=== PATIENT | male | born 1940 | race Caucasian/White ===

== ENCOUNTER 2016-12-07 15:59 | Inpatient (IN) | payer MEDICARE ==
[2016-12-07 19:41] LABS: Basophils % (A) 0 %; CH 29.9; CHCM 31.8; Eosinophils # (A) 0.5 k/uL (0-0.7); Eosinophils % (A) 7 %; HCT 48.8 % (39.0-53.0); HDW 2.28; HGB 15.6 gm/dL (13.0-17.5); Luc # (Auto) 0.12; Luc % (Auto) 1; Lymphocytes # (A) 1.6 k/uL (1.0-4.8); Lymphocytes % (A) 20 %; MCH 30.2 pg (25.0-35.0); MCHC 32.1 g/dL (31.0-37.0); MCV 94.3 fL (80.0-100.0); Mean Platelet Volume 7.3; Monocytes # (A) 0.5 k/uL (0-1.0); Monocytes % (A) 6 %; Neutrophils # (A) 5.2 k/uL (1.3-7.7); Neutrophils % (A) 65 %; RBC 5.18 m/uL (4.30-5.90); WBC (Perox) 7.84
--- NOTE | 2016-12-07 19:43 | XR ---
EXAMINATION TYPE: XR chest 2V DATE OF EXAM: 12/07/2016 COMPARISON: 02/12/2016 HISTORY: Hypoxia TECHNIQUE: Frontal and lateral views of the chest are obtained. FINDINGS: There is marked obscuration of the pulmonary vasculature bilaterally by a fine reticular pa ttern of increased density throughout the lung parenchyma with areas of coalescence consistent with i nterstitial and alveolar phase pulmonary edema, presumably cardiogenic pulmonary edema given the mode rate prominence of the cardiac silhouette. Mediastinum appears midline. There is no evident pneumothorax or pleural effusion. Bones and soft tis sues are unremarkable. IMPRESSION: MARKED INTERSTITIAL AND ALVEOLAR PHASE PULMONARY EDEMA, PRESUMABLY CARDIOGENIC ETIOLOGY.
[2016-12-07 19:56] LABS: ALT 21 U/L (21-72); AST 26 U/L (17-59); Alkaline Phosphatase 114 U/L (38-126); Anion Gap 6 mmol/L; Blood Urea Nitrogen 16 mg/dL (9-20); Carbon Dioxide 31 mmol/L (22-30); Chloride 102 mmol/L (98-107); Glucose 133 mg/dL (74-99); Non-African American GFR(MDRD) >60 (>60 ml/min/1.73 sqM); Potassium 4.2 mmol/L (3.5-5.1); Sodium 139 mmol/L (137-145); Total Bilirubin 0.6 mg/dL (0.2-1.3); Total Protein 7.1 g/dL (6.3-8.2)
[2016-12-07 20:09] LABS: Glucose,Whole Blood 105 mg/dL (75-99)
[2016-12-07 20:27] LABS: Hemoglobin A1C 5.8 % (4.2-6.1)
[2016-12-07 20:32] LABS: Glucose,Whole Blood 142 mg/dL (75-99)
[2016-12-07] MEDS: IPRATROPIUM-ALBUTEROL 3 ML NEB INHALATION SCH (21:19)
--- NOTE | 2016-12-07 22:24 | US ---
EXAMINATION TYPE: US carotid duplex BILAT DATE OF EXAM: 12/07/2016 COMPARISON: NONE CLINICAL HISTORY: chf. Dizziness EXAM MEASUREMENTS: RIGHT: Peak Systolic Velocity (PSV) cm/sec ----- Right CCA: 54.6 ----- Right ICA: 84.6 ----- Right ECA: 93.1 ICA/CCA ratio: 1.5 RIGHT: End Diastole cm/sec ----- Right CCA: 12.9 ----- Right ICA: 24.1 ----- Right ECA: 7.6 LEFT: Peak Systolic Velocity (PSV) cm/sec ----- Left CCA: 63.3 ----- Left ICA: 85.3 ----- Left ECA: 64.6 ICA/CCA ratio: 1.3 LEFT: End Diastole cm/sec ----- Left CCA: 14.1 ----- Left ICA: 23.2 ----- Left ECA: 8.9 VERTEBRALS (direction of flow): Right Vertebral: Antegrade Left Vertebral: Antegrade IMPRESSION: MODERATE/SEVERE AMOUNT OF PLAQUE VISUALIZED IN THE RIGHT BULB, PROXIMAL ICA. MODERATE AMOUNT OF PLAQU E VISUALIZED IN LEFT BULB. NO ELEVATED VELOCITIES.
[2016-12-07] MEDS: methylPREDNISolone SOD SUCCI 125 MG/2 ML VIAL IV SCH (23:47)
[2016-12-08] MEDS: methylPREDNISolone SOD SUCCI 125 MG/2 ML VIAL IV SCH ×3 (01:07→17:37)
[2016-12-08] MEDS: SOTALOL 80 MG TAB PO SCH ×2 (01:08→12:26)
[2016-12-08] MEDS: METOPROLOL TARTRATE 12.5 MG TAB PO SCH ×2 (01:08→12:25)
[2016-12-08] MEDS: CLOPIDOGREL 75 MG TAB PO SCH (01:08)
[2016-12-08] MEDS: LISINOPRIL 2.5 MG TAB PO SCH (01:08)
[2016-12-08 06:16] LABS: Basophils % (A) 0 %; CH 30.2; CHCM 31.8; Eosinophils % (A) 1 %; HCT 49.7 % (39.0-53.0); HDW 2.28; HGB 15.7 gm/dL (13.0-17.5); Luc # (Auto) 0.04; Luc % (Auto) 1; Lymphocytes # (A) 0.7 k/uL (1.0-4.8); Lymphocytes % (A) 14 %; MCH 30.1 pg (25.0-35.0); MCHC 31.5 g/dL (31.0-37.0); MCV 95.5 fL (80.0-100.0); Mean Platelet Volume 7.7; Monocytes # (A) 0.1 k/uL (0-1.0); Monocytes % (A) 2 %; Neutrophils # (A) 4.2 k/uL (1.3-7.7); Neutrophils % (A) 82 %; RDW 14.7 % (11.5-15.5); WBC 5.1 k/uL (3.8-10.6); WBC (Perox) 4.92
[2016-12-08 06:25] LABS: ALT 25 U/L (21-72); AST 26 U/L (17-59); Alkaline Phosphatase 121 U/L (38-126); Anion Gap 8 mmol/L; Blood Urea Nitrogen 15 mg/dL (9-20); Calcium 9.1 mg/dL (8.4-10.2); Carbon Dioxide 29 mmol/L (22-30); Chloride 103 mmol/L (98-107); Glucose 129 mg/dL (74-99); Non-African American GFR(MDRD) >60 (>60 ml/min/1.73 sqM); Potassium 4.7 mmol/L (3.5-5.1); Sodium 140 mmol/L (137-145); Total Bilirubin 0.5 mg/dL (0.2-1.3); Total Protein 7.1 g/dL (6.3-8.2)
[2016-12-08 06:33] LABS: Glucose,Whole Blood 131 mg/dL (75-99)
[2016-12-08] MEDS: INSULIN LISPRO (humaLOG) 300 UNIT/3 ML VIAL SQ SCH ×4 (06:48→21:19)
[2016-12-08] MEDS: IPRATROPIUM-ALBUTEROL 3 ML NEB INHALATION SCH ×4 (08:57→19:26)
--- NOTE | 2016-12-08 10:26 | P.CRDCN ---
History of Present Illness Consult date: 12/08/16 Requesting physician: Alan Otero Reason for Consult (text): Shortness of breath and palpitations Chief complaint: Shortness of breath and palpitations History of present illness: This is a 76-year-old gentleman with known history of coronary artery disease and prior stent placement. He underwent angioplasty with stent placement of the circumflex in March 2015 at which time he presented with an acute posterior wall myocardial infarction with cardiogenic shock. He also has history of prior LAD stenting and a known TO of the right coronary artery. Ischemic cardio myopathy status post AICD, hypertension, hyperlipidemia, COPD, and prior history of smoking. Patient also has had admissions for AICD discharge for ventricular tachycardia. He presents to the hospital on this occasion with symptoms of exertional shortness of breath and heart racing. He was sent directly over from Dr. Crews office. Blood pressure on arrival here 100/80, heart rate in the 60s, 92% on 2 L of oxygen. Blood pressure this morning 92/50, 90% on room air. 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 WBC normal hemoglobin 15.7 d- dimer 1.7 BUN 15, creatinine 0.6. Troponins negative 2. BNP level 451. At the time of my examination this morning, patient's breathing is stable, unless he exerts himself, that he feels short of breath. Past Medical History Past Medical History: Asthma, Coronary Artery Disease (CAD), Chest Pain / Angina , COPD, Hypertension, Myocardial Infarction (AK), Osteoarthritis (OA), Pneumonia , Prostate Disorder Additional Past Medical History / Comment(s): home 02 2 liters n/c: " PT NOT SURE HOW MANY AK'S HE'S TRULY HAD(FOUND ON PAST MED HX 4-PT STATED HE THINKS HE' S HAD MORE)" ,ARTHRITIS LT KNEE/FOOT, bronchitis, sinus problems, constipations , lt wrist/arm fx, hx falls, djd Last Myocardial Infarction Date:: UNK History of Any Multi-Drug Resistant Organisms: None Reported Past Surgical History: Adenoidectomy, Appendectomy, Heart Catheterization With Stent, Hernia Repair, Orthopedic Surgery, Tonsillectomy Additional Past Surgical History / Comment(s): 04/09/15 heart cath with 2 stents to prox circ, other past surguries include: CARDIAC STENTx5, BOWEL SX FOR TWISTED BOWELas child, LT TESTICAL REMOVED.ARTHROSCOPIC KNEE SX. CYST REMOVED(CHEST) LT MIDDLE FINGER SX DONE D/T INJURY.delvin ingiunal hernia repair Past Anesthesia/Blood Transfusion Reactions: No Reported Reaction Date of Last Stent Placement:: UNK Smoking Status: Former smoker - Past Family History Father Additional Family Medical History / Comment(s): 2001 Mother Family Medical History: Congestive Heart Failure (CHF), Diabetes Mellitus, Myocardial Infarction (AK) Additional Family Medical History / Comment(s): 1984 Medications and Allergies Home Medications Medication Instructions Recorded Confirmed Type Aspirin EC [Ecotrin Low Dose] 81 mg PO DAILY@1200 06/18/15 12/07/16 History Clopidogrel [Plavix] 75 mg PO HS@0400 02/12/16 12/07/16 History Flaxseed-Sultana 3,6,9 Fatty Acid 1 tab PO DAILY@1200 02/12/16 12/07/16 History Glucosam/Anant-Msm1/C/Kvng/Bosw 1 tab PO BID@0400,1200 02/12/16 12/07/16 History [Glucosamine-Chondroitin Tablet] Multivit-Min/FA/Lycopen/Lutein 1 tab PO DAILY@1200 02/12/16 12/07/16 History [Centrum Silver Tablet] Sotalol [Betapace] 40 mg PO BID@0400,1200 02/12/16 12/07/16 History Lisinopril [Zestril] 2.5 mg PO HS@0400 12/07/16 12/07/16 History Loratadine [Alavert] 10 mg PO DAILY@1200 12/07/16 12/07/16 History Metoprolol Tartrate [Lopressor] 12.5 mg PO BID@0400,1200 12/07/16 12/07/16 History Naproxen Sodium [Aleve] 220 mg PO DAILY@1200 12/07/16 12/07/16 History Allergies Allergy/AdvReac Type Severity Reaction Status Date / Time adhesive Allergy Rash/Hives Verified 12/07/16 17:47 Iodinated Contrast- Oral and Allergy Swelling Verified 12/07/16 17:47 IV Dye iodine Allergy Swelling Verified 12/07/16 17:47 Physical Exam Vitals: Vital Signs Pulse Pulse Resp BP Pulse Ox 12/08/16 09:17 64 12/08/16 08:57 64 12/08/16 03:56 68 19 92/53 90 L 12/08/16 00:00 60 19 96/51 90 L 12/07/16 21:32 62 12/07/16 21:22 58 L 96 12/07/16 20:00 64 19 100/82 92 L Intake and Output 12/07/16 12/08/16 12/08/16 22:59 06:59 14:59 Intake Total 437 120 Output Total 200 1500 1550 Balance 237 -1500 -1430 Intake: Oral 437 120 Output: Urine 200 1500 1550 Other: Voiding Method Urinal # Voids 3 0 Weight 122.5 kg 122.5 kg PHYSICAL EXAMINATION: HEENT: Head is atraumatic, normocephalic. Pupils equal, round. Neck is supple. There is no elevated jugular venous pressure. HEART EXAMINATION: Heart S1, S2 normal. No murmur or gallop heard. CHEST EXAMINATION: Lungs reveal decreased air exchange with fine expiratory wheezes. ABDOMEN: Soft, obese, nontender. Bowel sounds are heard. No organomegaly noted. EXTREMITIES: 2+ peripheral pulses with trace evidence of peripheral edema and no calf tenderness noted. NEUROLOGIC patient is awake, alert and oriented -3. . Results 12/08/16 05:39 12/08/16 05:39 Cardiac Enzymes 12/07/16 12/07/16 12/08/16 Range/Units 19:27 19:27 00:59 AST 26 (17-59) U/L Troponin I <0.012 <0.012 (0.000-0.034) ng/mL 12/08/16 Range/Units 05:39 AST 26 (17-59) U/L Troponin I (0.000-0.034) ng/mL CBC 12/07/16 12/08/16 Range/Units 19:27 05:39 WBC 8.0 5.1 (3.8-10.6) k/uL RBC 5.18 5.20 (4.30-5.90) m/uL Hgb 15.6 15.7 (13.0-17.5) gm/dL Hct 48.8 49.7 (39.0-53.0) % Plt Count 197 193 (150-450) k/uL Comprehensive Metabolic Panel 12/07/16 12/08/16 Range/Units 19:27 05:39 Sodium 139 140 (137-145) mmol/L Potassium 4.2 4.7 (3.5-5.1) mmol/L Chloride 102 103 (98-107) mmol/L Carbon Dioxide 31 H 29 (22-30) mmol/L BUN 16 15 (9-20) mg/dL Creatinine 0.71 0.65 L (0.66-1.25) mg/dL Glucose 133 H 129 H (74-99) mg/dL Calcium 9.0 9.1 (8.4-10.2) mg/dL AST 26 26 (17-59) U/L ALT 21 25 (21-72) U/L Alkaline Phosphatase 114 121 (38-126) U/L Total Protein 7.1 7.1 (6.3-8.2) g/dL Albumin 3.6 3.6 (3.5-5.0) g/dL Current Medications Generic Name Dose Route Start Last Admin Trade Name Freq PRN Reason Stop Dose Admin Albuterol/Ipratropium 3 ml 12/07/16 20:00 12/08/16 08:57 Duoneb 0.5 Mg-3 Mg/3 Ml Soln INHALATION 3 ml RT-QID [facility] Administration Aspirin 81 mg 12/08/16 12:00 Aspirin PO DAILY@1200 [facility] Clopidogrel Bisulfate 75 mg 12/08/16 04:00 12/08/16 01:08 Plavix PO 75 mg HS@0400 [facility] Administration Insulin Human Lispro 0 unit 12/08/16 07:30 12/08/16 06:48 Humalog SQ 1 unit ACHS [facility] Administration Protocol Lisinopril 2.5 mg 12/08/16 04:00 12/08/16 01:08 Zestril PO 2.5 mg HS@0400 [facility] Administration Loratadine 10 mg 12/08/16 12:00 Claritin PO DAILY@1200 [facility] Methylprednisolone Sodium Succinate 60 mg 12/07/16 19:00 12/08/16 09:17 Solu-Medrol IV 60 mg Q8HR [facility] Administration Metoprolol Tartrate 12.5 mg 12/08/16 04:00 12/08/16 01:08 Lopressor PO 12.5 mg BID@0400,1200 [facility] Administration Sotalol HCl 40 mg 12/08/16 04:00 12/08/16 01:08 Betapace PO 40 mg BID@0400,1200 [facility] Administration Intake and Output 12/07/16 12/08/16 12/08/16 22:59 06:59 14:59 Intake Total 437 120 Output Total 200 1500 1550 Balance 237 -1500 -1430 Intake: Oral 437 120 Output: Urine 200 1500 1550 Other: Voiding Method Urinal # Voids 3 0 Weight 122.5 kg 122.5 kg 12/08/16 05:39 12/08/16 05:39 EKG Interpretations (text) No EKG performed Assessment and Plan Plan: Assessment and plan #1 symptoms of exertional shortness of breath and heart racing. No evidence of congestive cardiac failure. school lunch monitor shows a normal sinus rhythm with occasional PVCs. D-dimer 1.7. 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 We will also obtain an EKG, request a CTA of the chest to rule out pulmonary embolism. BNP level is normal and there is no evidence of congestive cardiac failure at this time. Check magnesium level. We will continue to monitor for any tachyarrhythmias. We will also have the patient's AICD interrogated. Further recommendations to follow. DNP note has been reviewed, I agree with a documented findings and plan of care. Patient was seen and examined.
[2016-12-08] MEDS ORDERED: RX INFO: IV CONTRAST WAS GIVEN 1 EACH MISC MISCELLANE PRN (10:27)
[2016-12-08] MEDS ORDERED: methylPREDNISolone SOD SUCCI 125 MG/2 ML VIAL IV STA (10:39)
[2016-12-08] MEDS ORDERED: FAMOTIDINE 20 MG/2 ML VIAL IV STA (10:39)
[2016-12-08] MEDS ORDERED: diphenhydrAMINE 50 MG/ML 1 ML VIAL IVP STA (10:39)
--- NOTE | 2016-12-08 10:49 | ECHOF ---
Referral Reason:chf MEASUREMENTS -------- HEIGHT: 188.0 cm WEIGHT: 122.5 kg BP: 92/53 RVIDd: 4.0 cm (< 3.3) IVSd: 1.5 cm (0.6 - 1.1) LVIDd: 6.5 cm (3.9 - 5.3) LVPWd: 1.5 cm (0.6 - 1.1) IVSs: 1.8 cm LVIDs: 4.8 cm LVPWs: 1.7 cm LA Diam: 5.4 cm (2.7 - 3.8) Ao Diam: 3.6 cm (2.0 - 3.7) AV Cusp: 2.5 cm (1.5 - 2.6) MV EXCURSION: 20.694 mm (> 18.000) MV EF SLOPE: 31 mm/s (70 - 150) EPSS: 1.7 cm MV E Abrahan: 0.52 m/s MV DecT: 401 ms MV A Abrahan: 0.65 m/s MV E/A Ratio: 0.81 AV maxP.25 mmHg AV meanP.66 mmHg AR PHT: 700 ms RAP: 5.00 mmHg RVSP: 42.43 mmHg FINDINGS -------- This was a technically difficult study with suboptimal views. The left ventricle is moderately dilated. There is moderate concentric left ventricular hypertrophy. Overall left ventricular systolic function is low-normal with, an EF between 50 - 55 %. The right ventricle is moderately enlarged. The left atrium is markedly dilated. The right atrium was not well visualized. 1.5mg of Definity was utilized for enhancement of images There is mild to moderate aortic valve sclerosis. There is mild aortic regurgitation. There is mild aortic stenosis present. Peak/mean gradient across the Aortic Valve is 12.25mmHg / 6.66mmHg. Mild mitral annular calcification present. Mild mitral regurgitation is present. Mild tricuspid regurgitation present. There is mild pulmonary hypertension. The right ventricular systolic pressure, as measured by Doppler, is 42.43mmHg. Trace/mild (physiologic) pulmonic regurgitation. The aortic root size is normal. IVC Not well visulized. There is no pericardial effusion. CONCLUSIONS -------- 1. This was a technically difficult study with suboptimal views. 2. There is mild aortic stenosis present. 3. Peak/mean gradient across the Aortic Valve is 12.25mmHg / 6.66mmHg. 4. Mild mitral annular calcification present. 5. Mild mitral regurgitation is present. 6. Mild tricuspid regurgitation present. 7. There is mild pulmonary hypertension. 8. The right ventricular systolic pressure, as measured by Doppler, is 42.43mmHg. 9. Trace/mild (physiologic) pulmonic regurgitation. 10. The aortic root size is normal. 11. IVC Not well visulized. 12. The left ventricle is moderately dilated. 13. There is no pericardial effusion. 14. There is moderate concentric left ventricular hypertrophy. 15. The right ventricle is moderately enlarged. 16. The left atrium is markedly dilated. 17. The right atrium was not well visualized. 18. 1.5mg of Definity was utilized for enhancement of images 19. There is mild to moderate aortic valve sclerosis. 20. There is mild aortic regurgitation. RANGE MANAGEMENT SPECIALIST: Anitra Hanson RDCS
[2016-12-08 12:23] LABS: Glucose,Whole Blood 153 mg/dL (75-99)
[2016-12-08] MEDS: ASPIRIN 81 MG CHEW PO SCH (12:25)
[2016-12-08] MEDS: LORATADINE 10 MG TAB PO SCH (12:25)
[2016-12-08 12:27] LABS: Appearance,Urine Clear (Clear); Bilirubin,Urine Negative (Negative); Glucose,Urine (UA) Negative (Negative); Ketones,Urine Negative (Negative); Leukocyte Esterase,Urine Negative (Negative); Mucus,Urine Occasional /hpf; Nitrite,Urine Negative (Negative); Particle Count 3135; Protein,Urine 1+ (Negative); RBC,Urine 25 /hpf (0-5); Specific Gravity,Urine 1.021 (1.001-1.035); UA Billing (MACRO vs. MICRO) MICRO; Urobilinogen,Urine <2.0 mg/dL (<2.0); WBC,Urine 4 /hpf (0-5)
--- NOTE | 2016-12-08 13:26 | CT ---
EXAMINATION TYPE: CT angio chest DATE OF EXAM: 12/08/2016 COMPARISON: NONE HISTORY: Trouble breathing CT DLP: 726.8 mGycm CONTRAST: CT chest with contrast and 3D reconstruction with MIP imaging is performed with IV Contrast, patient injected with 100 mL of Omnipaque 350. Contrast-enhanced CT of the chest was performed through the course of the pulmonary arteries with massimo g and mediastinal window settings submitted. 3D reconstruction with MIP imaging was also performed. PULMONARY ARTERIES: The pulmonary arteries and their major tributaries are patent. I do not see jaylan dence for sizable filling defect to suggest pulmonary embolic process. LUNGS: Lung volumes are diminished. There is evidence of honeycombing compatible with idiopathic pulm onary fibrosis. MEDIASTINUM: Thoracic aorta is of normal caliber . The heart is enlarged. There is a pulmonary arterial prominence compatible pulmonary arterial hypertension. Coronary artery calcifica tions are noted. No evidence for mediastinal mass. No mediastinal lymph nodes greater than 1cm. HILAR STRUCTURES: No evidence for mass. No hilar lymph nodes greater than 1 cm. UPPER ABDOMEN: Stable adrenal nodularity. IMPRESSION: 1. No evidence for Pulmonary embolism at this time. 2. Idiopathic pulmonary fibrosis
[2016-12-08 16:47] LABS: Glucose,Whole Blood 146 mg/dL (75-99)
[2016-12-08] MEDS: BUDESONIDE 0.5 MG/2 ML NEBU INHALATION SCH (19:26)
[2016-12-08 20:03] LABS: Hemoglobin A1C 5.8 % (4.2-6.1)
[2016-12-08 20:24] LABS: Glucose,Whole Blood 161 mg/dL (75-99)
[2016-12-08] MEDS: HEPARIN SODIUM,PORCINE 5,000 UNIT/ML 1 ML VIAL SQ SCH (21:15)
[2016-12-09] MEDS: methylPREDNISolone SOD SUCCI 125 MG/2 ML VIAL IV SCH ×2 (01:11→08:11)
[2016-12-09] MEDS: CLOPIDOGREL 75 MG TAB PO SCH ×2 (01:16→23:35)
[2016-12-09] MEDS: METOPROLOL TARTRATE 12.5 MG TAB PO SCH ×3 (01:17→23:35)
[2016-12-09] MEDS: LISINOPRIL 2.5 MG TAB PO SCH ×2 (01:18→23:36)
[2016-12-09] MEDS: SOTALOL 80 MG TAB PO SCH ×3 (01:19→23:36)
[2016-12-09] MEDS: BUDESONIDE 0.5 MG/2 ML NEBU INHALATION SCH ×2 (07:12→21:14)
[2016-12-09] MEDS: IPRATROPIUM-ALBUTEROL 3 ML NEB INHALATION SCH ×4 (07:12→21:14)
[2016-12-09 07:18] LABS: Glucose,Whole Blood 147 mg/dL (75-99)
[2016-12-09] MEDS: INSULIN LISPRO (humaLOG) 300 UNIT/3 ML VIAL SQ SCH ×4 (08:11→21:48)
[2016-12-09] MEDS: HEPARIN SODIUM,PORCINE 5,000 UNIT/ML 1 ML VIAL SQ SCH ×2 (08:11→21:49)
[2016-12-09] MEDS: LORATADINE 10 MG TAB PO SCH (08:12)
[2016-12-09] MEDS: ASPIRIN 81 MG CHEW PO SCH (08:12)
--- NOTE | 2016-12-09 08:53 | CONS ---
Huey mahmood is a 76-year-old male who presented to his primary care physicians office with increasing shortness of breath for 2 to 3 months duration. He was previously seen by me and used to follow in my office as well. He was subsequently admitted for further evaluation. The patient stopped all his nebulized medications 6 months to a year ago. PAST MEDICAL HISTORY: Coronary artery disease, status post previous stent placement, history of severe asthma, history of chronic obstructive pulmonary disease, history of interstitial changes on his x-ray which is thought to be chronic from lung fibrosis, history of allergies with several air allergens including cat which he is exposed to at this time. History of uncontrolled asthma and chronic obstructive pulmonary disease requiring systemic steroids. History of diabetes mellitus. FAMILY HISTORY: Positive for CHF in his mother, diabetes mellitus in his mother. Asthma in his son. SOCIAL HISTORY: Patient used to work for [employer] with exposure of several chemicals. He is ALLERGIC TO ADHESIVES, BENZODIAZEPINES, CATS AND AIR ALLERGENS. MEDICATIONS PRIOR TO ADMISSION: Sotalol, Aleve, Centrum Silver, Lopressor, Alavert, Zestril, glucosamine, fatty acid, Plavix, and Ecotrin. REVIEW OF SYSTEMS: Positive for obesity. On physical examination blood pressure is 123/68, respiratory rate 18, pulse rate of 68, O2 sat on 2-L via nasal cannula is 90%. HEENT reveals pupils that are equal. No jugular venous distention. Chest reveals decreased breath sounds, prolonged expiration, scattered crackles. There is expiratory wheeze. Cardiovascular system reveals an S1, S2. No S3. Abdomen is soft. There is 1+ to 2+ pedal edema. LABS: Reveal white count is 5.1, hemoglobin 15.7, sodium 140, potassium 4.7, chloride 103, bicarb 29, BUN 15, creatinine 0.65. CTA of the chest was negative for blood clots, but does show presence of interstitial changes consistent with pulmonary fibrosis. There are some soft infiltrates as well. IMPRESSION: 1. Acute on chronic respiratory failure. The patients O2 sats normally run in the 80s on supplemental oxygen, but has been as low as in the 50s at home. 2. Interstitial pneumonia. 3. Severe asthma with chronic obstructive pulmonary disease. 4. Baseline lung fibrosis. 5. Obesity. 6. Obstructive sleep apnea is likely. 7. Obesity. At this point in time would continue IV steroids, bronchodilators, aerosolized steroids. Keep him on GI and DVT prophylaxis. Infectious etiology is less likely at this time and agree with holding antibiotics. Depending on how he does we shall make further changes to his care. He was counseled regarding his condition and this approach. MARIA ESTHER
--- NOTE | 2016-12-09 11:21 | HP ---
CHIEF COMPLAINT: 76-year-old white male admitted with shortness of breath and palpitations. 76-year-old white male with coronary artery disease, stent placement. Underwent angioplasty of the stent in circumflex in March of 2015. He had acute posterior wall myocardial infarction and cardiogenic shock. He also has history of prior LAD stenting and possible stenting to the right coronary. Ischemic cardiomyopathy status post AICD, hypertension, dyslipidemia, COPD and smoking history. He has exertional shortness of breath, heart racing. His oxygen was 92% on 2 liters, blood pressure 92/50's. Troponins are negative. BNP 451. CT of the chest shows pulmonary fibrosis. PAST MEDICAL HISTORY: Asthma, coronary artery disease, COPD, hypertension, myocardial infarction, osteoarthritis, pneumonia, prostate disorder, arthritis of the left knee and foot, ( ), chronic constipation. SURGICAL HISTORY: Adenoidectomy, appendectomy, heart catheterization with stent , hernia repair, orthopedic surgery, tonsillectomy, cardiac stent x5, ( ), testicle removed, arthroscopic knee surgery, cyst removed right middle finger, bilateral inguinal hernia repair. PAST MEDICAL HISTORY: Father in 2001. Mother congestive heart failure, diabetes mellitus, myocardial infarction. MEDICATIONS: 1. Aspirin. 2. Plavix. 3. Glucosamine. 4. Flaxseed oil. 5. Multivitamin. 6. Sotalol. 7. Betapace 40 mg b.i.d. 8. Lisinopril 2.5 daily. 9. Elavil 10 mg daily. 10. Lopressor 12.5 b.i.d. 11. Naprosyn 220 b.i.d. ALLERGIES: ADHESIVES, IODINE. PHYSICAL EXAMINATION: Blood pressure 90's-100's systolically over 50's-70's. O2 is 92% on room air. Pulse 60-64. CARDIOVASCULAR: S1/S2. LUNGS: Show scattered wheezes x4, rales x4. HEMATOLOGY: Negative for Homans sign. PSYCH: Fair mood and affect. NEUROLOGIC: Alert and oriented x3. ASSESSMENT: 1. Shortness of breath, heart racing. 2. History of coronary artery disease with prior stents. 3. Ischemic cardiomyopathy status post AICD. 4. Ventricular tachycardia. 5. Hypertension. 6. Dyslipidemia. 7. Chronic obstructive pulmonary disease. 8. Sleep apnea. 9. Pulmonary fibrosis. IV steroids will be given. Continue with current treatment. MTDD
[2016-12-09 11:53] LABS: Glucose,Whole Blood 138 mg/dL (75-99)
--- NOTE | 2016-12-09 12:04 | CDI ---
In responding to this query, please exercise your independent professional judgment. The [facility] Coding Staff and Clinical Documentation Specialists appreciate your assistance in clarifying documentation, maintaining compliance with coding guidelines, accurately documenting patients condition and capturing severity of illness. The fact that a question is asked does not imply that any particular answer is desired or expected. Communication forms are a method of clarifying documentation and are not made part of the Legal Health Record. Thank you in advance for your clarification. Last Revision, March 2015 Ranjit [place] [address] [place] [address] Documentation Clarification Form Date: 12/09/2016 11:31:00 AM From: Cici Adams Admit Date: 12/07/2016 4:09:00 PM Patient Name: Huey Brasher Visit Number: [id number] Discharge Date: Dr. Alan Otero Documentation of chronic obstructive pulmonary disease located in the H&P and consults. History/Risk Factors: Hypertension, [place], Significant history of respiratory disorders/disease: COPD, Asthma Present or past smoker/PPD: Former smoker Clinical Indicators: Complains of shortness of breath and palpitations. CXR: chronic form lung fibrosis Vital Signs/Pulse Oximetry: 110/82 64 19 92 % 2/L NC Lung and Respiratory Assessment: Chest reveals decreased breath sounds, prolonged expiration, scattered crackles, expiratory wheeze. Treatment: Nebulizers: Albuterol Duoneb's, Pulmicort Inhalation, Steroids: Solu-Medrol IV (taper) Claritin PO O2 2/L NC In your professional opinion, can you please clarify if the above findings and treatment signify any of the following? Acute Exacerbation of Chronic Obstructive Pulmonary Disease (COPD) Acute on Chronic Obstructive Asthma Acute on chronic bronchitis Chronic obstructive pulmonary disease with acute lower respiratory infection Emphysema Unable to determine Other condition, please specify Please document in your progress notes and discharge summary in order to capture severity of illness and risk of mortality. Include clinical findings that support your diagnosis. FYI: Press F11 to launch patient chart. MTDDarius
--- NOTE | 2016-12-09 13:01 | CDI ---
In responding to this query, please exercise your independent professional judgment. The [facility] Coding Staff and Clinical Documentation Specialists appreciate your assistance in clarifying documentation, maintaining compliance with coding guidelines, accurately documenting patients condition and capturing severity of illness. The fact that a question is asked does not imply that any particular answer is desired or expected. Communication forms are a method of clarifying documentation and are not made part of the Legal Health Record. Thank you in advance for your clarification. Last Revision, July 2015 Ranjit [place] [address] [place] [address] Documentation Clarification Form Date: 12/09/2016 12:12:00 PM From: Cici Adams Admit Date: 12/07/2016 4:09:00 PM Patient Name: Huey Brasher Visit Number: [id number] Discharge Date: Dr. Jasper Fong Asthma is documented in the your consult on 12/08/16 Patient history/risk factors: Asthma, COPD, [place] Hypertension Clinical Indicators: Presented with increasing shortness of breath. Chest x-ray: Marked interstitial and alveolar phase pulmonary edema, presumably cardiogenic etiology. Vital Signs: 100/82 64 19 92 % 2/LNC Other Clinical Indicators: Chest reveals decreased breath sounds, prolonged expiration, scattered crackles, expiratory wheeze. Treatment: Albuterol Duoneb's, Pulmicort Inhalation Solu-Medrol IV (taper) Claritin PO O2 2/L NC (titrate) In your professional opinion, can you please further specify the following, related to the diagnosis of severe asthma if known? With Acute Exacerbation Status asthmaticus Acute lower respiratory infection COPD (specify with or without exacerbation) Chronic obstructive bronchitis Other, please specify Unable to determine Severity Mild intermittent Mild persistent Moderate persistent Severe persistent Other, please specify Unable to determine Form or Type Cough variant Childhood Exercise induced bronchospasm Extrinsic allergic Idiosyncratic Intrinsic nonallergic Late-onset Mixed Other, please specify Unable to determine Please document in your progress notes in order to capture severity of illness and risk of mortality. Include clinical findings that support your diagnosis. FYI: Press F11 to launch patient chart. MARIA ESTHER
--- NOTE | 2016-12-09 13:09 | P.PN ---
Subjective This is a 76-year-old gentleman with known history of coronary artery disease and prior stent placement. He underwent angioplasty with stent placement of the circumflex in March 2015 at which time he presented with an acute posterior wall myocardial infarction with cardiogenic shock. He also has history of prior LAD stenting with a known MEAT MOLDER of the right coronary artery, ischemic cardio myopathy status post AICD, hypertension, hyperlipidemia, COPD, and prior history of smoking. Patient also has had admissions for AICD discharge for ventricular tachycardia. He presents to the hospital on this occasion with symptoms of exertional shortness of breath and heart racing. Upon exam today he is seen resting in bed conversing with his roommate. He c/o shortness of breath on exertion and does become short of breath while conversing. He denies chest pain, palpitations, nausea, vomiting or dizziness. Objective - Vital Signs Vital signs: Vital Signs Temp 97.6 F 12/09/16 07:00 Pulse 64 12/09/16 11:22 Resp 18 12/09/16 08:00 BP 103/56 12/09/16 07:00 Pulse Ox 92 L 12/09/16 07:15 Intake & Output 12/08/16 12/09/16 12/09/16 18:59 06:59 18:59 Intake Total 120 Output Total 1550 Balance -1430 Intake: Oral 120 Output: Urine 1550 Other: Voiding Method Urinal Toilet Urinal # Voids 3 2 - Exam GENERAL: Well-appearing, obese, well-nourished and in no acute distress. NECK: Supple without JVD or thyromegaly. LUNGS: Breath sounds clear to auscultation bilaterally with diminished air exchange. No wheezes, rales or rhonchi. HEART: Regular rate and rhythm without murmurs, rubs or gallops. S1 and S2 heard. ABDOMEN: Soft, nontender, normoactive bowel sounds. EXTREMITIES: Normal range of motion, no edema. Clubbing and cyanosis of all 10 digits. Peripheral pulses intact and strong. - Labs CBC & Chem 7: 12/08/16 05:39 12/08/16 05:39 Labs: Abnormal Lab Results - Last 24 Hours (Table) 12/08/16 12/08/16 12/08/16 Range/Units 14:02 16:46 20:18 POC Glucose (mg/dL) 146 H 161 H (75-99) mg/dL LDL Cholesterol, Calc 140 H (0-99) mg/dL HDL Cholesterol 36 L (40-60) mg/dL 12/09/16 12/09/16 Range/Units 06:57 11:51 POC Glucose (mg/dL) 147 H 138 H (75-99) mg/dL LDL Cholesterol, Calc (0-99) mg/dL HDL Cholesterol (40-60) mg/dL Microbiology - Last 24 Hours (Table) 12/07/16 12:17 Urine Culture - Preliminary Urine,Clean Catch Assessment and Plan Plan: Assessment 1. Known history of coronary artery disease with prior circumflex stent, LAD stents, and MEAT MOLDER of the RCA. 2. Ischemic cardiomyopathy status post AICD implant. 3. History of ventricular tachycardia with AICD discharges. 4. Hypertension. 5. Hyperlipidemia. 6. COPD, acute exacerbation on chronic long-term home oxygen use. 7. Sleep apnea. 8. Prior history of smoking. Plan Echocardiogram reveals mild pulmonary hypertension with right ventricular systolic pressure 42.43 mmHg, left ventricular function low normal with EF 50-55 % and moderate left ventricular hypertrophy. CTA of chest reveals no evidence for pulmonary embolism. Idiopathic pulmonary fibrosis. EKG reveals normal sinus mechanism. Magnesium level 1.8. AICD interrogation reveals no significant events of firing with 80% battery life remaining. There is no evidence of congestive heart failure or pulmonary embolism at this time. This pt appears to be having an acute exacerbation of COPD and should be medically managed as such. We thank you for allowing us to care for this pt during his hospitalization. Nurse Practitioner note has been reviewed, I agree with a documented findings and plan of care. Patient was seen and examined.
[2016-12-09 17:04] LABS: Glucose,Whole Blood 150 mg/dL (75-99)
[2016-12-09] MEDS: methylPREDNISolone SOD SUCCI 40 MG/ML 1 ML VIAL IV SCH ×2 (17:28→23:28)
[2016-12-09 22:04] LABS: Glucose,Whole Blood 141 mg/dL (75-99)
[2016-12-10 07:07] LABS: Glucose,Whole Blood 111 mg/dL (75-99)
[2016-12-10] MEDS: BUDESONIDE 0.5 MG/2 ML NEBU INHALATION SCH ×2 (07:22→19:08)
[2016-12-10] MEDS: IPRATROPIUM-ALBUTEROL 3 ML NEB INHALATION SCH ×4 (07:22→19:08)
--- NOTE | 2016-12-10 07:41 | PN ---
DATE OF SERVICE : 12/09/2016 The patient is a 76-year-old male who is seen lying in bed, eating lunch. He is awake and alert. Verbalizes not feeling a whole lot better than when he came in. Continues to have a cough when he takes a deep breath. No longer feels like his heart is pounding out of his chest and his headache is resolved. The patient is hemodynamically stable, afebrile, in no acute distress. ON PHYSICAL EXAM: VITAL SIGNS: Temp is 97.6, heart rate is 64, respiratory rate is 18, blood pressure is 103/56, O2 sats 92% on 2 L O2 via nasal cannula. HEENT: Head is normocephalic, atraumatic. Neck is supple. Trachea is midline. Lung sounds are decreased. No rales or wheezes. HEART: S1 and S2 are heard, not tachycardiac. ABDOMEN: Soft. Bowel sounds are heard. EXTREMITIES: With trace edema bilaterally. NEUROLOGIC: Patient is awake, alert, oriented. LABS: No new labs to review. IMAGING: No new imaging to review. IMPRESSION: 1. Acute on chronic respiratory failure. The patient's O2 sats normally run in the 80s on supplemental oxygen. 2. Interstitial pneumonia. 3. Severe asthma with chronic obstructive pulmonary disease. 4. Baseline lung fibrosis. 5. Obesity. 6. Obstructive sleep apnea is suspected . PLAN: Continue current medications, which have been reviewed. Continue bronchodilators, aerosol steroids and IV steroids. Continue GI and DVT prophylaxis. Continue to increase activity as tolerated. Patient was informed about the importance of having a sleep study to evaluate for obstructive sleep apnea and being treated for it if so. However, the patient stated that he tried to have one done here at this facility and was told that he had to sleep at night and patient has never slept at night so he refused to get it done. Again, the patient is highly recommended to have a sleep study as an outpatient. Will follow closely with you making further changes as necessary. MARIA ESTHER
[2016-12-10] MEDS: INSULIN LISPRO (humaLOG) 300 UNIT/3 ML VIAL SQ SCH ×4 (09:07→22:14)
[2016-12-10] MEDS: HEPARIN SODIUM,PORCINE 5,000 UNIT/ML 1 ML VIAL SQ SCH ×2 (09:08→22:17)
[2016-12-10] MEDS: methylPREDNISolone SOD SUCCI 40 MG/ML 1 ML VIAL IV SCH ×2 (09:08→22:17)
[2016-12-10] MEDS: LORATADINE 10 MG TAB PO SCH (11:16)
[2016-12-10] MEDS: METOPROLOL TARTRATE 12.5 MG TAB PO SCH (11:16)
[2016-12-10] MEDS: ASPIRIN 81 MG CHEW PO SCH (11:16)
[2016-12-10] MEDS: SOTALOL 80 MG TAB PO SCH (11:17)
[2016-12-10 11:48] LABS: Glucose,Whole Blood 135 mg/dL (75-99)
[2016-12-10] MEDS: PANTOPRAZOLE 40 MG TABLET PO SCH (12:45)
--- NOTE | 2016-12-10 12:57 | PN ---
SUBJECTIVE: This is a white male with acute on chronic hypoxemic respiratory failure, ( ) heart failure, hypoxemia of the patient down to 56% while walking down the stairs. Lungs show scattered rhonchi and wheeze. O2 sat on 2 L 92% and 56% without oxygen with ambulation. ASSESSMENT: 1. Chronic obstructive pulmonary disease exacerbation. 2. Right-sided heart failure. 3. Hypertension. Continue with steroid taper. Oral Claritin, overall antibiotics, DuoNeb, Pulmicort. Asthma, acute COPD, chronic obstructive bronchitis, right-sided heart failure. Continue with current treatments. MTDD
--- NOTE | 2016-12-10 13:07 | PN ---
DATE OF SERVICE: 12/10/2016 The patient is a 76-year-old male who was seeing lying in bed, is awake and alert. Appears to be feeling a little better today. States that he feels about the same. The patient is hemodynamically stable, afebrile, in no acute distress. ON PHYSICAL EXAM: VITAL SIGNS; Temp is 97.9, heart rate 72, respiratory rate 18, blood pressure 106/59, O2 sats 96% on 2 L O2 via nasal cannula. HEENT: Head is normocephalic, atraumatic. Neck is supple. Trachea is midline. Lungs with diffuse scattered Velcro type rales. HEART: S1 and S2 are heard, not tachycardiac. ABDOMEN: Soft. Bowel sounds are head. EXTREMITIES: With no edema. NEUROLOGIC: Patient is awake and alert. No new labs to review. No new imaging to review. IMPRESSION: 1. Acute on chronic respiratory failure. 2. Interstitial pneumonia. 3. Severe asthma with chronic obstructive pulmonary disease. 4. Baseline lung fibrosis. 5. Obesity. 6. Obstructive sleep apnea suspected. PLAN: Continue current medications, which have been reviewed. Will decrease IV Solu-Medrol to 40 q.12. Continue bronchodilators and aerosol steroids. Continue GI and DVT prophylaxis. Continue to increase activity as tolerated. Patient would benefit from a sleep study as an outpatient. Will follow closely with you making further changes as necessary. JIAND
[2016-12-10 17:11] LABS: Glucose,Whole Blood 161 mg/dL (75-99)
[2016-12-10 21:24] LABS: Glucose,Whole Blood 118 mg/dL (75-99)
[2016-12-10 23:54] LABS: Appearance,Urine Clear (Clear); Bilirubin,Urine Negative (Negative); Glucose,Urine (UA) Negative (Negative); Ketones,Urine Negative (Negative); Leukocyte Esterase,Urine Negative (Negative); Mucus,Urine Rare /hpf; Nitrite,Urine Negative (Negative); PH, Urine 5.5 (5.0-8.0); Particle Count 1958; Protein,Urine Trace (Negative); RBC,Urine >182 /hpf (0-5); Specific Gravity,Urine 1.023 (1.001-1.035); UA Billing (MACRO vs. MICRO) MICRO; Urobilinogen,Urine <2.0 mg/dL (<2.0); WBC,Urine 6 /hpf (0-5)
[2016-12-11] MEDS: CLOPIDOGREL 75 MG TAB PO SCH (03:10)
[2016-12-11] MEDS: LISINOPRIL 2.5 MG TAB PO SCH (03:11)
[2016-12-11] MEDS: METOPROLOL TARTRATE 12.5 MG TAB PO SCH ×3 (03:11→12:19)
[2016-12-11] MEDS: SOTALOL 80 MG TAB PO SCH ×2 (03:11→11:58)
[2016-12-11] MEDS: IPRATROPIUM-ALBUTEROL 3 ML NEB INHALATION SCH ×4 (06:55→20:10)
[2016-12-11] MEDS: BUDESONIDE 0.5 MG/2 ML NEBU INHALATION SCH ×2 (06:55→20:10)
[2016-12-11 07:35] LABS: Basophils % (A) 0 %; CH 30.2; CHCM 31.2; Eosinophils % (A) 0 %; HCT 47.6 % (39.0-53.0); HDW 2.28; HGB 14.8 gm/dL (13.0-17.5); Hypochromasia Slight; Luc # (Auto) 0.13; Luc % (Auto) 1; Lymphocytes # (A) 0.8 k/uL (1.0-4.8); Lymphocytes % (A) 8 %; MCH 30.2 pg (25.0-35.0); MCHC 31.1 g/dL (31.0-37.0); MCV 97.2 fL (80.0-100.0); Monocytes # (A) 0.7 k/uL (0-1.0); Monocytes % (A) 6 %; Neutrophils % (A) 85 %; RDW 15.1 % (11.5-15.5); WBC 10.7 k/uL (3.8-10.6); WBC (Perox) 10.26
[2016-12-11 07:53] LABS: ALT 38 U/L (21-72); AST 35 U/L (17-59); Alkaline Phosphatase 93 U/L (38-126); Anion Gap 8 mmol/L; Blood Urea Nitrogen 24 mg/dL (9-20); Calcium 8.6 mg/dL (8.4-10.2); Carbon Dioxide 31 mmol/L (22-30); Chloride 101 mmol/L (98-107); Glucose 124 mg/dL (74-99); Non-African American GFR(MDRD) >60 (>60 ml/min/1.73 sqM); Potassium 4.9 mmol/L (3.5-5.1); Sodium 140 mmol/L (137-145); Total Bilirubin 0.3 mg/dL (0.2-1.3); Total Protein 6.2 g/dL (6.3-8.2)
[2016-12-11 07:55] LABS: Glucose,Whole Blood 112 mg/dL (75-99)
[2016-12-11] MEDS: INSULIN LISPRO (humaLOG) 300 UNIT/3 ML VIAL SQ SCH ×4 (08:36→22:11)
[2016-12-11] MEDS: PANTOPRAZOLE 40 MG TABLET PO SCH (08:37)
[2016-12-11] MEDS: HEPARIN SODIUM,PORCINE 5,000 UNIT/ML 1 ML VIAL SQ SCH ×2 (08:37→22:12)
[2016-12-11] MEDS: methylPREDNISolone SOD SUCCI 40 MG/ML 1 ML VIAL IV SCH ×2 (08:38→22:13)
--- NOTE | 2016-12-11 10:20 | PN ---
SUBJECTIVE: A 76-year-old white male who appears a little bit better today. He has good air at rest, but when he ambulates his oxygen level drops to mid-90s to mid-80s to 70s even with oxygen he states. Temp 97.9, heart rate 72, respiratory rate 18 to 16. HEAD: Normocephalic, atraumatic. CARDIOVASCULAR: S1, S2. LUNGS: showed scattered rales. EXTREMITIES: No edema. NEUROLOGIC: Alert and oriented x3. ABDOMEN: Distended due to obesity. Plan is to wean IV steroids, increase ambulation. IMPRESSION: 1. Chronic respiratory failure. 2. Interstitial pneumonia. 3. Severe asthma. 4. Chronic obstructive pulmonary disease. 5. Pulmonary fibrosis. 6. Obstructive sleep apnea. 7. Obesity. As mentioned above wean steroids. Possible discharge home in the next 24 to 48 hours as he is clinically improving. MARIA ESTHER
[2016-12-11 11:41] LABS: Glucose,Whole Blood 110 mg/dL (75-99)
--- NOTE | 2016-12-11 11:53 | P.GSCN ---
History of Present Illness Consult date: 12/11/16 History of present illness: The patient is a 76-year-old gentleman in the hospital for cardiac and pulmonary issues. He has significant coronary artery disease and significant COPD. He is in no shortness of breath. He has a history of chronic hematuria over the last year. This is been intermittent. His gross hematuria. The patient not been evaluated for this. He was a patient of Dr. nelson years ago. He has no history of stones. There is no history urine infections. He is not had previous urologic procedures. There is no history of prostate cancer bladder cancer. Dr. Otero asked us to see the patient. Review of Systems - Constitutional Reports anorexia, Reports weakness - Cardiovascular Reports chest pain, Reports dyspnea on exertion - Respiratory Reports dyspnea - Genitourinary Reports hematuria, Reports urinary frequency Past Medical History Past Medical History: Asthma, Coronary Artery Disease (CAD), Chest Pain / Angina , COPD, Hypertension, Myocardial Infarction (AK), Osteoarthritis (OA), Pneumonia , Prostate Disorder Additional Past Medical History / Comment(s): home 02 2 liters n/c: " PT NOT SURE HOW MANY AK'S HE'S TRULY HAD(FOUND ON PAST MED HX 4-PT STATED HE THINKS HE' S HAD MORE)" ,ARTHRITIS LT KNEE/FOOT, bronchitis, sinus problems, constipations , lt wrist/arm fx, hx falls, djd Last Myocardial Infarction Date:: UNK History of Any Multi-Drug Resistant Organisms: None Reported Past Surgical History: Adenoidectomy, Appendectomy, Heart Catheterization With Stent, Hernia Repair, Orthopedic Surgery, Tonsillectomy Additional Past Surgical History / Comment(s): 04/09/15 heart cath with 2 stents to prox circ, other past surguries include: CARDIAC STENTx5, BOWEL SX FOR TWISTED BOWELas child, LT TESTICAL REMOVED.ARTHROSCOPIC KNEE SX. CYST REMOVED(CHEST) LT MIDDLE FINGER SX DONE D/T INJURY.delvin ingiunal hernia repair Past Anesthesia/Blood Transfusion Reactions: No Reported Reaction Date of Last Stent Placement:: UNK Smoking Status: Former smoker - Past Family History Father Additional Family Medical History / Comment(s): 2001 Mother Family Medical History: Congestive Heart Failure (CHF), Diabetes Mellitus, Myocardial Infarction (AK) Additional Family Medical History / Comment(s): 1984 Medications and Allergies Home Medications Medication Instructions Recorded Confirmed Type Aspirin EC [Ecotrin Low Dose] 81 mg PO DAILY@1200 06/18/15 12/07/16 History Clopidogrel [Plavix] 75 mg PO HS@0400 02/12/16 12/07/16 History Flaxseed-[place] 3,6,9 Fatty Acid 1 tab PO DAILY@1200 02/12/16 12/07/16 History Glucosam/Anant-Msm1/C/Kvng/Bosw 1 tab PO BID@0400,1200 02/12/16 12/07/16 History [Glucosamine-Chondroitin Tablet] Multivit-Min/FA/Lycopen/Lutein 1 tab PO DAILY@1200 02/12/16 12/07/16 History [Centrum Silver Tablet] Sotalol [Betapace] 40 mg PO BID@0400,1200 02/12/16 12/07/16 History Lisinopril [Zestril] 2.5 mg PO HS@0400 12/07/16 12/07/16 History Loratadine [Alavert] 10 mg PO DAILY@1200 12/07/16 12/07/16 History Metoprolol Tartrate [Lopressor] 12.5 mg PO BID@0400,1200 12/07/16 12/07/16 History Naproxen Sodium [Aleve] 220 mg PO DAILY@119912/07/16 12/07/16 History Allergies Allergy/AdvReac Type Severity Reaction Status Date / Time adhesive Allergy Rash/Hives Verified 12/07/16 17:47 Iodinated Contrast- Oral and Allergy Swelling Verified 12/07/16 17:47 IV Dye iodine Allergy Swelling Verified 12/07/16 17:47 Surgical - Exam Vital Signs Pulse Resp BP Pulse Ox 64 19 100/82 92 L 12/07/16 20:00 12/07/16 20:00 12/07/16 20:00 12/07/16 20:00 - General well developed, well nourished, moderate distress - ENT no hearing loss - Neck trachea midline - Respiratory normal expansion, normal respiratory effort - Cardiovascular Rhythm: regular - Abdomen Abdomen: soft, non tender - Genitourinary The penis is not circumcised. 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 Prostate is enlarged but benign. Penis exceedingly testicles epididymides scrotum unremarkable. - Rectum Rectum: no hemorrhoids - Integumentary no rash, no growths - Neurologic normal coordination, normal sensation - Musculoskeletal normal posture - Psychiatric oriented to time, oriented to person, oriented to place, speech is normal, memory intact Results - Labs 12/11/16 06:31 12/11/16 06:31 Abnormal Lab Results - Last 24 Hours (Table) 12/10/16 12/10/16 12/10/16 Range/Units 17:09 21:04 23:38 WBC (3.8-10.6) k/uL Neutrophils # (1.3-7.7) k/uL Lymphocytes # (1.0-4.8) k/uL Carbon Dioxide (22-30) mmol/L BUN (9-20) mg/dL Creatinine (0.66-1.25) mg/dL Glucose (74-99) mg/dL POC Glucose (mg/dL) 161 H 118 H (75-99) mg/dL Total Protein (6.3-8.2) g/dL Albumin (3.5-5.0) g/dL Urine Protein Trace H (Negative) Urine Blood Large H (Negative) Urine RBC >182 H (0-5) /hpf Urine WBC 6 H (0-5) /hpf Urine Mucus Rare H (None) /hpf 12/11/16 12/11/16 12/11/16 Range/Units 06:31 06:31 07:22 WBC 10.7 H (3.8-10.6) k/uL Neutrophils # 9.0 H (1.3-7.7) k/uL Lymphocytes # 0.8 L (1.0-4.8) k/uL Carbon Dioxide 31 H (22-30) mmol/L BUN 24 H (9-20) mg/dL Creatinine 0.60 L (0.66-1.25) mg/dL Glucose 124 H (74-99) mg/dL POC Glucose (mg/dL) 112 H (75-99) mg/dL Total Protein 6.2 L (6.3-8.2) g/dL Albumin 3.3 L (3.5-5.0) g/dL Urine Protein (Negative) Urine Blood (Negative) Urine RBC (0-5) /hpf Urine WBC (0-5) /hpf Urine Mucus (None) /hpf 12/11/16 Range/Units 11:39 WBC (3.8-10.6) k/uL Neutrophils # (1.3-7.7) k/uL Lymphocytes # (1.0-4.8) k/uL Carbon Dioxide (22-30) mmol/L BUN (9-20) mg/dL Creatinine (0.66-1.25) mg/dL Glucose (74-99) mg/dL POC Glucose (mg/dL) 110 H (75-99) mg/dL Total Protein (6.3-8.2) g/dL Albumin (3.5-5.0) g/dL Urine Protein (Negative) Urine Blood (Negative) Urine RBC (0-5) /hpf Urine WBC (0-5) /hpf Urine Mucus (None) /hpf Diabetes panel 12/11/16 Range/Units 06:31 Sodium 140 (137-145) mmol/L Potassium 4.9 (3.5-5.1) mmol/L Chloride 101 (98-107) mmol/L Carbon Dioxide 31 H (22-30) mmol/L BUN 24 H (9-20) mg/dL Creatinine 0.60 L (0.66-1.25) mg/dL Glucose 124 H (74-99) mg/dL Calcium 8.6 (8.4-10.2) mg/dL AST 35 (17-59) U/L ALT 38 (21-72) U/L Alkaline Phosphatase 93 (38-126) U/L Total Protein 6.2 L (6.3-8.2) g/dL Albumin 3.3 L (3.5-5.0) g/dL Calcium panel 12/11/16 Range/Units 06:31 Calcium 8.6 (8.4-10.2) mg/dL Albumin 3.3 L (3.5-5.0) g/dL Pituitary panel 12/11/16 Range/Units 06:31 Sodium 140 (137-145) mmol/L Potassium 4.9 (3.5-5.1) mmol/L Chloride 101 (98-107) mmol/L Carbon Dioxide 31 H (22-30) mmol/L BUN 24 H (9-20) mg/dL Creatinine 0.60 L (0.66-1.25) mg/dL Glucose 124 H (74-99) mg/dL Calcium 8.6 (8.4-10.2) mg/dL Adrenal panel 12/11/16 Range/Units 06:31 Sodium 140 (137-145) mmol/L Potassium 4.9 (3.5-5.1) mmol/L Chloride 101 (98-107) mmol/L Carbon Dioxide 31 H (22-30) mmol/L BUN 24 H (9-20) mg/dL Creatinine 0.60 L (0.66-1.25) mg/dL Glucose 124 H (74-99) mg/dL Calcium 8.6 (8.4-10.2) mg/dL Total Bilirubin 0.3 (0.2-1.3) mg/dL AST 35 (17-59) U/L ALT 38 (21-72) U/L Alkaline Phosphatase 93 (38-126) U/L Total Protein 6.2 L (6.3-8.2) g/dL Albumin 3.3 L (3.5-5.0) g/dL Assessment and Plan Plan: Impression: Cardio pulmonary problems as mentioned above. Recurrent gross hematuria. Recommendations. The patient needs a urologic workup for the hematuria. The patient refuses to come to the office as he states it is too difficult on him. I will order appropriate testing here in the hospital to see if we can identify the cause of the hematuria.
[2016-12-11] MEDS: ASPIRIN 81 MG CHEW PO SCH (11:56)
[2016-12-11] MEDS: CARBAMIDE PEROXIDE 6.5% DROPS 15 ML BTL LEFT EAR SCH ×2 (11:56→22:12)
[2016-12-11] MEDS: LORATADINE 10 MG TAB PO SCH (11:57)
--- NOTE | 2016-12-11 12:34 | P.PN ---
Subjective Principal diagnosis: patient seen and evaluated and examined on fifth floor mildly short of breath getting ready to get nebulizer treatment denies any cough or sputum production, breathing treatment has been helping This is a 76-year-old gentleman with known history of coronary artery disease and prior stent placement. He underwent angioplasty with stent placement of the circumflex in March 2015 at which time he presented with an acute posterior wall myocardial infarction with cardiogenic shock. He also has history of prior LAD stenting with a known DEVICE ENGINEER of the right coronary artery, ischemic cardio myopathy status post AICD, hypertension, hyperlipidemia, COPD, and prior history of smoking. Patient also has had admissions for AICD discharge for ventricular tachycardia. He presents to the hospital on this occasion with symptoms of exertional shortness of breath and heart racing. Upon exam today he is seen resting in bed conversing with his roommate. He c/o shortness of breath on exertion and does become short of breath while conversing. He denies chest pain, palpitations, nausea, vomiting or dizziness. Objective - Vital Signs Vital signs: Vital Signs Temp 97.9 F 12/11/16 07:00 Pulse 68 12/11/16 11:20 Resp 18 12/11/16 07:00 BP 88/50 12/11/16 07:00 Pulse Ox 92 L 12/11/16 07:00 Intake & Output 12/10/16 12/11/16 12/11/16 18:59 06:59 18:59 Intake Total 300 500 Output Total 400 400 525 Balance -100 100 -525 Weight 122.5 kg Intake: Oral 300 500 Output: Urine 400 400 525 Other: Voiding Method Toilet Toilet Urinal Urinal # Voids 1 - Exam GENERAL: Well-appearing, morbidlyobese, well-nourished and in no acute distress. NECK: Supple without JVD or thyromegaly. LUNGS: Breath sounds clear to auscultation bilaterally with diminished air exchange. No wheezes, rales or rhonchi. HEART: Regular rate and rhythm without murmurs, rubs or gallops. S1 and S2 heard. ABDOMEN: Soft, nontender, normoactive bowel sounds. EXTREMITIES: Normal range of motion, no edema. noClubbing and cyanosis of all 10 digits. Peripheral pulses intact and strong. 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 - Labs CBC & Chem 7: 12/11/16 06:31 12/11/16 06:31 Labs: Abnormal Lab Results - Last 24 Hours (Table) 12/10/16 12/10/16 12/10/16 Range/Units 17:09 21:04 23:38 WBC (3.8-10.6) k/uL Neutrophils # (1.3-7.7) k/uL Lymphocytes # (1.0-4.8) k/uL Carbon Dioxide (22-30) mmol/L BUN (9-20) mg/dL Creatinine (0.66-1.25) mg/dL Glucose (74-99) mg/dL POC Glucose (mg/dL) 161 H 118 H (75-99) mg/dL Total Protein (6.3-8.2) g/dL Albumin (3.5-5.0) g/dL Urine Protein Trace H (Negative) Urine Blood Large H (Negative) Urine RBC >182 H (0-5) /hpf Urine WBC 6 H (0-5) /hpf Urine Mucus Rare H (None) /hpf 12/11/16 12/11/16 12/11/16 Range/Units 06:31 06:31 07:22 WBC 10.7 H (3.8-10.6) k/uL Neutrophils # 9.0 H (1.3-7.7) k/uL Lymphocytes # 0.8 L (1.0-4.8) k/uL Carbon Dioxide 31 H (22-30) mmol/L BUN 24 H (9-20) mg/dL Creatinine 0.60 L (0.66-1.25) mg/dL Glucose 124 H (74-99) mg/dL POC Glucose (mg/dL) 112 H (75-99) mg/dL Total Protein 6.2 L (6.3-8.2) g/dL Albumin 3.3 L (3.5-5.0) g/dL Urine Protein (Negative) Urine Blood (Negative) Urine RBC (0-5) /hpf Urine WBC (0-5) /hpf Urine Mucus (None) /hpf 12/11/16 Range/Units 11:39 WBC (3.8-10.6) k/uL Neutrophils # (1.3-7.7) k/uL Lymphocytes # (1.0-4.8) k/uL Carbon Dioxide (22-30) mmol/L BUN (9-20) mg/dL Creatinine (0.66-1.25) mg/dL Glucose (74-99) mg/dL POC Glucose (mg/dL) 110 H (75-99) mg/dL Total Protein (6.3-8.2) g/dL Albumin (3.5-5.0) g/dL Urine Protein (Negative) Urine Blood (Negative) Urine RBC (0-5) /hpf Urine WBC (0-5) /hpf Urine Mucus (None) /hpf Assessment and Plan Plan: 1. severeCOPD, acute exacerbation on chronic long-term home oxygen use.with chronic hypoxic respirator failure 2. Ischemic cardiomyopathy status post AICD implant. 3. History of ventricular tachycardia with AICD discharges. 4. Hypertension. 5. Hyperlipidemia. 6. Known history of coronary artery disease with prior circumflex stent, LAD stents, and DEVICE ENGINEER of the RCA. 7. obstructiveSleep apnea. 8. Prior history of smoking. plan continue breathing treatments along with IV steroids supplemental oxygen pulmonary hygiene cardiovascular data has been reviewed as indicated below Echocardiogram reveals mild pulmonary hypertension with right ventricular systolic pressure 42.43 mmHg, left ventricular function low normal with EF 50-55 % and moderate left ventricular hypertrophy. CTA of chest reveals no evidence for pulmonary embolism. Idiopathic pulmonary fibrosis. EKG reveals normal sinus mechanism. Magnesium level 1.8. AICD interrogation reveals no significant events of firing with 80% battery life remaining. There is no evidence of congestive heart failure or pulmonary embolism at this time. This pt appears to be having an acute exacerbation of COPD and should be medically managed as such. We thank you for allowing us to care for this pt during his hospitalization. Time with Patient: Greater than 30
--- NOTE | 2016-12-11 14:52 | US ---
EXAMINATION TYPE: US kidneys/renal and bladder DATE OF EXAM: 12/11/2016 COMPARISON: NONE CLINICAL HISTORY: hematuria. EXAM MEASUREMENTS: Right Kidney: 13.1 x 5.9 x 4.8 cm Left Kidney: 13.7 x 5.8 x 6.1 cm *Technical limitations due to patient's body habitus and large amount of overlying bowel Right Kidney: stone lower pole = 1.0cm Left Kidney: enlarged, no evidence of hydronephrosis or mass as visualized Bladder: not fully distended Bilateral Jets seen: no There is no evidence for hydronephrosis at this point in time. No masses are identified. The urinar y bladder is anechoic. Bilateral ureteral jets are not seen. Cortical medullary differentiation is maintained. IMPRESSION: Right-sided nonobstructive nephrolithiasis. There are limitations to the exam due to patient body hab itus.
--- NOTE | 2016-12-11 16:44 | XR ---
Abdomen HISTORY: Hematuria Frontal view of the abdomen submitted on 2 images and correlated to ultrasound kidneys 12/11/2016 There is a calcification superimposed over the lower pole of the right kidney measuring 12 mm in size . Extensive vascular calcifications are present. There is a spinal curvature, degenerative disc pleitez es are present within the visualized spine. Lung bases not included on the exam. No bowel obstruction or pneumoperitoneum. IMPRESSION: Right-sided nephrolithiasis.
[2016-12-11 17:36] LABS: Glucose,Whole Blood 131 mg/dL (75-99)
[2016-12-11 21:57] LABS: Glucose,Whole Blood 121 mg/dL (75-99)
[2016-12-11] MEDS: SODIUM CHLORIDE 0.45% 1,000 ML IV SCH (22:14)
[2016-12-12] MEDS: CLOPIDOGREL 75 MG TAB PO SCH (02:47)
[2016-12-12] MEDS: LISINOPRIL 2.5 MG TAB PO SCH (04:45)
[2016-12-12] MEDS: METOPROLOL TARTRATE 12.5 MG TAB PO SCH (04:46)
[2016-12-12] MEDS: SOTALOL 80 MG TAB PO SCH ×2 (04:46→13:02)
[2016-12-12] MEDS: BUDESONIDE 0.5 MG/2 ML NEBU INHALATION SCH ×2 (07:12→20:28)
[2016-12-12] MEDS: IPRATROPIUM-ALBUTEROL 3 ML NEB INHALATION SCH ×4 (07:12→20:27)
[2016-12-12] MEDS: INSULIN LISPRO (humaLOG) 300 UNIT/3 ML VIAL SQ SCH ×4 (07:24→21:03)
[2016-12-12 07:54] LABS: Glucose,Whole Blood 119 mg/dL (75-99)
[2016-12-12] MEDS: HEPARIN SODIUM,PORCINE 5,000 UNIT/ML 1 ML VIAL SQ SCH ×2 (08:44→21:03)
[2016-12-12] MEDS: PANTOPRAZOLE 40 MG TABLET PO SCH (08:44)
[2016-12-12] MEDS: methylPREDNISolone SOD SUCCI 40 MG/ML 1 ML VIAL IV SCH (08:44)
[2016-12-12] MEDS: CARBAMIDE PEROXIDE 6.5% DROPS 15 ML BTL LEFT EAR SCH ×2 (08:46→21:03)
--- NOTE | 2016-12-12 09:06 | P.PN ---
Subjective Principal diagnosis: COPD, pulmonary fibrosis, cardiomyopathy, and also AICD This 76-year-old male was admitted with complaints of increasing shortness of breath. Patient chest x-ray on admission showed evidence of what looks and pulmonary edema, though pulmonary fibrosis cannot be excluded. Subsequent computed tomography scan also sized to a permanent fibrosis. His proBNP was within normal limits. We're asked to see the patient this morning because of hypotension. Patient has a previous AICD implantation and probably history of cardiomyopathy and ventricular arrhythmias. Patient is complaining of palpitations. Patient had a device check and which did not reveal any evidence of significant cardiac arrhythmias or shocks recently. Patient became hypotensive last night. Patient received IV fluids and his blood pressure stable. I'm going to hold his beta dionne and continue with sotalol and is no peripheral. I will also get a EKG and repeat chest x-ray along with BNP level Objective - Vital Signs Vital signs: Vital Signs Temp 97 F L 12/11/16 23:00 Pulse 60 12/12/16 07:29 Resp 18 12/12/16 07:00 BP 109/65 12/12/16 07:00 Pulse Ox 93 L 12/12/16 07:00 Intake & Output 12/11/16 12/12/16 12/12/16 18:59 06:59 18:59 Intake Total 690 Output Total 525 1100 Balance -525 -410 Intake: Oral 690 Output: Urine 525 1100 Other: Voiding Method Toilet Urinal # Voids 2 - Exam GENERAL EXAM: Patient is alert and oriented and doesn't appear to be in moderate distress HEENT: Normocephalic. Normal reaction of pupils, equal size, normal range of extraocular motion. No erythema or exudates in the throat. NECK: No masses, no nuchal rigidity. CHEST: No chest wall deformity. LUNGS: Diminished air exchange HEART: S1 and S2 normal with no audible mumurs or gallops. Regular rhythm, femorals equal on both sides.. ABDOMEN: No hepatosplenomegaly, normal bowel sounds, no guarding or rigidity. SKIN: No rashes CENTRAL NERVOUS SYSTEM: No focal deficits. EXTREMITIES: Mild edema - Labs CBC & Chem 7: 12/11/16 06:31 12/11/16 06:31 Labs: Abnormal Lab Results - Last 24 Hours (Table) 12/11/16 12/11/16 12/11/16 Range/Units 11:39 17:34 21:35 POC Glucose (mg/dL) 110 H 131 H 121 H (75-99) mg/dL 12/12/16 Range/Units 07:23 POC Glucose (mg/dL) 119 H (75-99) mg/dL Assessment and Plan (1) Hypotension Status: Acute (2) COPD (chronic obstructive pulmonary disease) Status: Acute (3) Congestive heart failure Status: Acute (4) Ischemic cardiomyopathy Status: Acute (5) Presence of stent in left circumflex coronary artery Status: Acute (6) V-tach Status: Acute Plan: I will reduce the hip reduced to KVO at this time. I will get a chest x-ray and also BNP level. I'll get an EKG done. Further recommendation depend upon the findings on the above tests. I will hold beta dionne at this time
--- NOTE | 2016-12-12 10:16 | P.PN ---
Subjective Principal diagnosis: patient seen and evaluated and examined on fifth floor mildly short of breath getting ready to get nebulizer treatment denies any cough or sputum production, breathing treatment has been helping This is a 76-year-old gentleman with known history of coronary artery disease and prior stent placement. He underwent angioplasty with stent placement of the circumflex in March 2015 at which time he presented with an acute posterior wall myocardial infarction with cardiogenic shock. 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 Patient also has had admissions for AICD discharge for ventricular tachycardia. He presents to the hospital on this occasion with symptoms of exertional shortness of breath and heart racing. Upon exam today he is seen resting in bed conversing with his roommate. He c/o shortness of breath on exertion and does become short of breath while conversing. He denies chest pain, palpitations, nausea, vomiting or dizziness. 12/12/16, patient seen and evaluated exam and computed tomography scan of the finding reviewed with cardiovascular service patient remains short of breath but appears to be more of a baseline denies any chest pain denies any sputum production patient is tolerating breathing treatments fairly well continued to do deep breathing exercise Objective - Vital Signs Vital signs: Vital Signs Temp 97 F L 12/11/16 23:00 Pulse 60 12/12/16 07:29 Resp 18 12/12/16 07:00 BP 109/65 12/12/16 07:00 Pulse Ox 93 L 12/12/16 07:00 Intake & Output 12/11/16 12/12/16 12/12/16 18:59 06:59 18:59 Intake Total 690 Output Total 525 1100 Balance -525 -410 Intake: Oral 690 Output: Urine 525 1100 Other: Voiding Method Toilet Urinal # Voids 2 - Exam GENERAL: Well-appearing, morbidlyobese, well-nourished and in no acute distress. NECK: Supple without JVD or thyromegaly. LUNGS: Breath sounds clear to auscultation bilaterally with diminished air exchange. Dry Velcro crackles are present the bases not much change No wheezes , rales or rhonchi. HEART: Regular rate and rhythm without murmurs, rubs or gallops. S1 and S2 heard. ABDOMEN: Soft, nontender, normoactive bowel sounds. EXTREMITIES: Normal range of motion, no edema. noClubbing and cyanosis of all 10 digits. Peripheral pulses intact and strong. 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 Pulmonary fibrosis with baseline severeCOPD, acute exacerbation on chronic long-term home oxygen use.with chronic hypoxic respirator failure 2. Ischemic cardiomyopathy status post AICD implant. 3. History of ventricular tachycardia with AICD discharges. 4. Hypertension. 5. Hyperlipidemia. 6. 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 7. obstructiveSleep apnea. 8. Prior history of smoking. plan continue breathing treatments along with IV steroids supplemental oxygen pulmonary hygiene cardiovascular data has been reviewed as indicated below Echocardiogram reveals mild pulmonary hypertension with right ventricular systolic pressure 42.43 mmHg, left ventricular function low normal with EF 50-55 % and moderate left ventricular hypertrophy. CTA of chest reveals no evidence for pulmonary embolism. Idiopathic pulmonary fibrosis. EKG reveals normal sinus mechanism. Magnesium level 1.8. AICD interrogation reveals no significant events of firing with 80% battery life remaining. There is no evidence of congestive heart failure or pulmonary embolism at this time. This pt appears to be having an acute exacerbation of COPD and should be medically managed as such. We thank you for allowing us to care for this pt during his hospitalization. Time with Patient: Greater than 30
--- NOTE | 2016-12-12 11:11 | XR ---
EXAMINATION TYPE: XR chest 2V DATE OF EXAM: 12/12/2016 COMPARISON: Prior chest x-ray 12/07/2016 HISTORY: Congestive heart failure, shortness of breath TECHNIQUE: Frontal and lateral views of the chest are obtained. FINDINGS: Pleural parenchymal changes are similar. Heart size is unchanged. There is overlying defib rillator lead. There are overlying cardiac leads. IMPRESSION: Correlate for congestive heart failure and pulmonary artery hypertension, there is inter stitial lung disease and cardiomegaly.
[2016-12-12 11:28] LABS: Glucose,Whole Blood 126 mg/dL (75-99)
[2016-12-12] MEDS: LORATADINE 10 MG TAB PO SCH (13:02)
[2016-12-12] MEDS: ASPIRIN 81 MG CHEW PO SCH (13:02)
[2016-12-12] MEDS: SODIUM CHLORIDE 0.45% 1,000 ML IV SCH (13:04)
[2016-12-12 17:31] LABS: Glucose,Whole Blood 142 mg/dL (75-99)
[2016-12-12 20:22] LABS: Glucose,Whole Blood 130 mg/dL (75-99)
[2016-12-13] MEDS: SODIUM CHLORIDE 0.45% 1,000 ML IV SCH (01:29)
[2016-12-13] MEDS: CLOPIDOGREL 75 MG TAB PO SCH (04:17)
[2016-12-13] MEDS: SOTALOL 80 MG TAB PO SCH ×2 (04:41→13:09)
[2016-12-13] MEDS: LISINOPRIL 2.5 MG TAB PO SCH (04:41)
[2016-12-13 07:08] LABS: Glucose,Whole Blood 84 mg/dL (75-99)
[2016-12-13] MEDS: BUDESONIDE 0.5 MG/2 ML NEBU INHALATION SCH ×2 (07:10→19:46)
[2016-12-13] MEDS: IPRATROPIUM-ALBUTEROL 3 ML NEB INHALATION SCH ×4 (07:10→19:46)
[2016-12-13] MEDS: INSULIN LISPRO (humaLOG) 300 UNIT/3 ML VIAL SQ SCH ×4 (08:21→21:42)
[2016-12-13] MEDS: PANTOPRAZOLE 40 MG TABLET PO SCH (08:23)
[2016-12-13] MEDS: HEPARIN SODIUM,PORCINE 5,000 UNIT/ML 1 ML VIAL SQ SCH ×2 (08:23→21:42)
[2016-12-13] MEDS: ASPIRIN 81 MG CHEW PO SCH (08:23)
[2016-12-13] MEDS: predniSONE 20 MG TAB PO SCH (08:23)
[2016-12-13] MEDS: LORATADINE 10 MG TAB PO SCH (08:23)
[2016-12-13] MEDS: CARBAMIDE PEROXIDE 6.5% DROPS 15 ML BTL LEFT EAR SCH ×2 (08:24→21:44)
[2016-12-13 11:18] LABS: Glucose,Whole Blood 139 mg/dL (75-99)
--- NOTE | 2016-12-13 11:19 | PN ---
SUBJECTIVE: 76-year-old white male with acute respiratory distress. He has COPD exacerbation. He has right-sided heart failure, pulmonary fibrosis. His oxygen level on 2 liters is down to low 90's. He is oral prednisone which was switched over today. He is on cardiac medications. He is on Pulmicort and DuoNeb updrafts. Prognosis is extremely guarded. ( ) is being worked up by Urology. Dr. Landers held his blood pressure medications today due to hypotension. Continue with Sotalol. Hold beta blockers. Possible readjust medications in the morning prior to discharge. Pulmonary was aware of his oxygen levels and how it drops while being evaluated with any ambulation. CAT scan of the chest was reviewed. ASSESSMENT: 1. Pulmonary fibrosis, baseline. 2. Severe chronic obstructive pulmonary disease, acute exacerbation. 3. Chronic hypoxemic respiratory failure. 4. Ischemic cardiomyopathy status post AICD implant. 5. Ventricular tachycardia with AICD discharge. 6. Hypertension. 7. Dyslipidemia. 8. Coronary artery disease with circumflex stent, left anterior descending stent. 9. Obstructive sleep apnea. Continue breathing treatments, IV steroids, supplemental oxygen, pulmonary hygiene. Cardiovascular data at this time: AICD shows 8% battery life at this time. No CHF, no pulmonary embolism. See further orders. MTDD
--- NOTE | 2016-12-13 17:38 | P.PN ---
Subjective The patient was seen in consultation for hematuria. This hematuria is gone on for some time. Due to his immobility I ordered an ultrasound and a KUB while he is in this hospitalization for his dyspnea. A KUB and ultrasound identified a 1 cm right lower pole stone. With his anticoagulation and the stone this is the cause of his bleeding. Due to his significant cardiopulmonary issues and the fact that he is asymptomatic and do not believe that the stone needs to be removed. Further urologic care is required please feel free to contact us. Objective - Vital Signs Vital signs: Vital Signs Temp 97.9 F 12/13/16 15:00 Pulse 60 12/13/16 15:19 Resp 22 12/13/16 16:00 BP 114/62 12/13/16 15:00 Pulse Ox 86 L 12/13/16 15:00 Intake & Output 12/12/16 12/13/16 12/13/16 18:59 06:59 18:59 Intake Total 75 740 240 Output Total 800 Balance 75 -60 240 Intake: Intake, IV Titration 75 Amount Sodium Chloride 0.45% 1, 75 000 ml @ 75 mls/hr IV . [id number] [facility] Rx#:[id number] Oral 740 240 Output: Urine 800 Other: Voiding Method Urinal Urinal Urinal # Voids 350 3 - Labs CBC & Chem 7: 12/11/16 06:31 12/11/16 06:31 Labs: Abnormal Lab Results - Last 24 Hours (Table) 12/12/16 12/13/16 Range/Units 20:21 11:10 POC Glucose (mg/dL) 130 H 139 H (75-99) mg/dL
[2016-12-13 17:43] LABS: Glucose,Whole Blood 144 mg/dL (75-99)
[2016-12-13 21:55] LABS: Glucose,Whole Blood 132 mg/dL (75-99)
[2016-12-13 23:12] LABS: Glucose,Whole Blood 124 mg/dL (75-99)
[2016-12-13] MEDS ORDERED: IPRATROPIUM-ALBUTEROL 3 ML NEB INHALATION STA (23:39)
[2016-12-13] MEDS ORDERED: BUDESONIDE 0.5 MG/2 ML NEBU INHALATION STA (23:40)
[2016-12-13] MEDS ORDERED: methylPREDNISolone SOD SUCCI 125 MG/2 ML VIAL IV STA (23:42)
[2016-12-14 02:56] VITALS: TEMP 97.7
[2016-12-14] MEDS: LISINOPRIL 2.5 MG TAB PO SCH (05:26)
[2016-12-14] MEDS: SOTALOL 80 MG TAB PO SCH ×2 (05:26→11:36)
[2016-12-14] MEDS: CLOPIDOGREL 75 MG TAB PO SCH (05:26)
--- NOTE | 2016-12-14 05:49 | PN ---
DATE OF SERVICE: 12/13/2016 The patient is a 76-year-old male who is seen lying in bed, is awake and alert. He is tachypneic because he states that it is not cool enough in his room and whenever it gets humid he cannot breathe. The patient states that if it is not going to be any cooler in his room they should just send him home. When patient is distracted, his breathing does decrease to a normal respiratory rate. Patient is hemodynamically stable, afebrile, in no acute distress. ON PHYSICAL EXAM: VITAL SIGNS: Temp is 98.4. Heart rate is 64. Respiratory rate is 20. Blood pressure is 106/57. O2 sats 98% on 2 L O2 via nasal cannula. HEENT: Head is normocephalic, atraumatic. Neck is supple. Trachea is midline. Lung sounds with some Velcro type crackles to the bases, more so on the left than the right. HEART: S1 and S2 are heard, not tachycardia. ABDOMEN: Soft, obese. Bowel sounds are heard. EXTREMITIES: With trace edema. NEUROLOGIC: The patient is awake, alert, oriented. LABS: No new labs to review. IMAGING: Chest x-ray done on 12/12 shows correlate for congestive heart failure and pulmonary artery hypertension. There is interstitial lung disease and cardiomegaly. IMPRESSION: 1. Acute on chronic respiratory failure. 2. Interstitial pneumonia. 3. Severe asthma with chronic obstructive pulmonary disease. 4. Lung fibrosis. 5. Obesity. 6. Obstructive sleep apnea suspected. 7. Component of fluid overload suspected. PLAN: Continue current medications which have been reviewed. Continue the oral prednisone at 60 mg daily. Continue bronchodilators and aerosol steroids. Patient should be weaned off the prednisone slowly. Continue GI and DVT prophylaxis. It is recommended that patient have a sleep study as an outpatient for further evaluation for obstructive sleep apnea. We will follow closely with you making further changes as necessary. Should patient discharge home, he should follow up in the office in 2 to 3 days. MARIA ESTHER
[2016-12-14] MEDS: IPRATROPIUM-ALBUTEROL 3 ML NEB INHALATION SCH ×3 (07:10→15:30)
[2016-12-14] MEDS: BUDESONIDE 0.5 MG/2 ML NEBU INHALATION SCH (07:10)
[2016-12-14 07:45] LABS: Glucose,Whole Blood 91 mg/dL (75-99)
[2016-12-14 08:35] VITALS: BP 99/56; RESP 20
[2016-12-14] MEDS: INSULIN LISPRO (humaLOG) 300 UNIT/3 ML VIAL SQ SCH ×2 (08:36→11:22)
[2016-12-14] MEDS: PANTOPRAZOLE 40 MG TABLET PO SCH (08:53)
[2016-12-14] MEDS: predniSONE 20 MG TAB PO SCH (08:53)
[2016-12-14] MEDS: HEPARIN SODIUM,PORCINE 5,000 UNIT/ML 1 ML VIAL SQ SCH (08:54)
[2016-12-14] MEDS: CARBAMIDE PEROXIDE 6.5% DROPS 15 ML BTL LEFT EAR SCH (09:14)
--- NOTE | 2016-12-14 09:50 | P.DS ---
Providers Date of admission: 12/07/16 16:09 Expected date of discharge: 12/14/16 Attending physician: Alan Otero Consults: 12/07/16 18:39 Consult Physician Routine Consulting Provider: Tena Noriega Consult Reason/Comments: chf Do you want consulting provider notified?: Yes 12/07/16 18:42 Consult Physician Routine Consulting Provider: Brandy Siu Consult Reason/Comments: copd Do you want consulting provider notified?: Yes 12/10/16 19:43 Consult Physician Routine Consulting Provider: Kwabena Onofre Consult Reason/Comments: hematuria Do you want consulting provider notified?: Yes 12/11/16 21:57 Consult Physician Routine Consulting Provider: Miryam Landers Consult Reason/Comments: hypotension Do you want consulting provider notified?: Yes, Notify in am Primary care physician: Corey Hospital Course: 76-year-old male admitted on the day of admission as a direct admission from Dr. Otero's office with a chief complaint of developing shortness of breath with heart palpitation. Patient was advised to be admitted to the hospital for workup Patient has a history of coronary artery disease with prior angioplasty stenting to the circumflex in March 2015. Also has a history of prior LAD stenting. Additionally patient has an ICD for cardiomyopathy. Patient's oxygen level on admission was 92% on 2 L. CAT scan of the chest obtained showed pulmonary fibrosis. An echocardiogram was obtained this admission it showed left ventricular systolic function low normal with an EF between 50 and 55%. It showed mild pulmonary hypertension.. Cardiology consultation was obtained. Troponin 2 were negative. The d-dimer elevated 1.7. CAT scan of the chest showed no evidence of pulmonary emboli. The BNP was normal and there was no evidence of congestive heart failure. Also the AICD was interrogated it showed no acute findings no acute episodes. Etiology indicated no further cardiac workup at this time etiology did indicate this admission patient's beta dionne be held cardiology due to patient's hypotensive episodes this can be reevaluated in the outpatient setting Patient additionally was seen by pulmonology service Dr. Jayleen fragoso. Patient was found to have interstitial pneumonia with acute on chronic respiratory failure with pulmonary fibrosis. Patient also was treated for severe acute exacerbation asthma with COPD patient was treated with IV Solu-Medrol monitored closely additionally patient was seen by urology service. Dr. Hall did see patient for hematuria. An ultrasound and KUB was done this admission. The KUB and ultrasound identified a 1 cm right lower pole stone. Urology indicated that the patient was on anticoagulation with the anticoagulation and the stone this was probable cause of the hematuria. They felt that there was no further recommendations at this time. Hemoglobin stable. No gross hematuria the hematuria had resolved Patient was felt to be hemodynamically stable and appropriate proceed with a discharge Impression discharge diagnosis Acute on chronic respiratory failure Present on admission Severe asthma with an acute exacerbation Present on admission acute exacerbation COPD Obstructive sleep apnea suspected Obesity Pulmonary fibrosis Acute on chronic obstructive asthma Intermittent episodes of hematuria resolved suspect due to anticoagulation in the stone in the right lower pole of the kidney Known coronary artery disease with prior stenting to the circumflex, LAD and RCA Chronic heart failure systolic dysfunction no evidence of an exacerbation Prior history of nicotine dependency Pulmonary fibrosis with baseline severe COPD with an acute exacerbation Chronic long-term home oxygen with chronic hypoxic respiratory failure History of ventricular tachycardia with AICD AICD interrogated this admission no evidence of cardiac arrhythmias or shocks recently Ischemic cardio myopathy status post AICD implant Echocardiogram left ventricular systolic function low normal with an EF between 50 and 55% Elevated d-dimer with a CAT scan of the chest no evidence of pulmonary emboli evidence of pulmonary fibrosis Chronic debility The above impression and plan of care have been discussed and directed by signing physician. Sue Mccoy nurse practitioner acting as scribe for signing physician. Plan - Discharge Summary New Discharge Prescriptions: New Carbamide Peroxide [Debrox Otic] 5 drops LEFT EAR BID #1 bottle Ipratropium-Albuterol Nebulize [Duoneb 0.5 mg-3 mg/3 ml Soln] 3 ml INHALATION RT-QID neb predniSONE 60 mg PO DAILY #15 tab Continue Aspirin EC [Ecotrin Low Dose] 81 mg PO DAILY@1200 Flaxseed-[place] 3,6,9 Fatty Acid 1 tab PO DAILY@1200 Sotalol [Betapace] 40 mg PO BID@0400,1200 Clopidogrel [Plavix] 75 mg PO HS@0400 Multivit-Min/FA/Lycopen/Lutein [Centrum Silver Tablet] 1 tab PO DAILY@1200 Glucosam/Anant-Msm1/C/Kvng/Bosw [Glucosamine-Chondroitin Tablet] 1 tab PO BID@ 0400,1200 Naproxen Sodium [Aleve] 220 mg PO DAILY@1200 Loratadine [Alavert] 10 mg PO DAILY@1200 Lisinopril [Zestril] 2.5 mg PO HS@0400 Discontinued Metoprolol Tartrate [Lopressor] 12.5 mg PO BID@0400,1200 Discharge Medication List Aspirin EC [Ecotrin Low Dose] 81 mg PO DAILY@1200 06/18/15 [History] Clopidogrel [Plavix] 75 mg PO HS@0400 02/12/16 [History] Flaxseed-[place] 3,6,9 Fatty Acid 1 tab PO DAILY@119902/12/16 [History] Glucosam/Anant-Msm1/C/Kvng/Bosw [Glucosamine-Chondroitin Tablet] 1 tab PO BID@ 0400,119902/12/16 [History] Multivit-Min/FA/Lycopen/Lutein [Centrum Silver Tablet] 1 tab PO DAILY@02/11 [History] Sotalol [Betapace] 40 mg PO BID@0400,1200 02/12/16 [History] Lisinopril [Zestril] 2.5 mg PO HS@0400 12/07/16 [History] Loratadine [Alavert] 10 mg PO DAILY@119912/07/16 [History] Naproxen Sodium [Aleve] 220 mg PO DAILY@119912/07/16 [History] Carbamide Peroxide [Debrox Otic] 5 drops LEFT EAR BID #1 bottle 12/14/16 [Rx] Ipratropium-Albuterol Nebulize [Duoneb 0.5 mg-3 mg/3 ml Soln] 3 ml INHALATION RT -QID neb 12/14/16 [Rx] predniSONE 60 mg PO DAILY #15 tab 12/14/16 [Rx] Follow up Appointment(s)/Referral(s): Alan Otero MD [Primary Care Provider] - 12/15/16 Miryam Landers MD [STAFF PHYSICIAN] - 1 Week Discharge Disposition: HOME SELF-CARE
[2016-12-14 10:33] VITALS: BMI 34.7
[2016-12-14 11:17] LABS: Glucose,Whole Blood 120 mg/dL (75-99)
[2016-12-14 11:18] VITALS: PULSE 72
[2016-12-14] MEDS: ASPIRIN 81 MG CHEW PO SCH (11:36)
[2016-12-14] MEDS: LORATADINE 10 MG TAB PO SCH (11:36)
--- NOTE | 2016-12-14 12:29 | PN ---
SUBJECTIVE: A 76-year-old white male who continues to have difficulty with his breathing, pulmonary fibrosis. Despite what we do he gets hypoxemic when he ambulates due to pulmonary fibrosis. Discussed case with Dr. Nicholas Fong, who states there is minimal improvement what we can do with this patient. He will continue on oxygen when he goes home and a steroid taper. He has been followed up for hematuria by Urology who recommends possibly a renal stone causing it. ( ) cause of his bleeding, most likely follow up with urologist as outpatient. 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 Continue with steroid taper. Lungs were essentially clear at rest. CARDIOVASCULAR S1, S2. ABDOMEN: Distended, obesity. PLAN: Discharge home in the next 24 to 48 hours. MTDD
--- NOTE | 2016-12-14 13:59 | PN ---
He was seen again on 12/14/2016. He has been hemodynamically more stable. He is at his baseline as far as shortness of breath goes. PHYSICAL EXAMINATION: Respiratory rate is 20, pulse rate of 63, blood pressure 99/56, he is afebrile. HEENT: Unremarkable. CHEST: Reveals scattered crackles. No wheeze. CARDIOVASCULAR: Reveals S1/S2. ABDOMEN: Soft. There is trace to 1+ pedal edema. IMPRESSION: 1. Acute on chronic respiratory failure secondary to asthma with lung fibrosis with acute exacerbation. 2. Baseline chronic obstructive pulmonary disease. 3. Obstructive sleep apnea with obesity, hypoventilation is likely for which he would benefit from an outpatient sleep study and CPAP or BiPAP. He would also benefit from pulmonary rehab. Would continue him on relatively high dose steroids with a slow taper which can be done as an outpatient. Continue him on his cardiac medications for history of coronary artery disease. His prognosis at this time guarded. He was counseled regarding his condition and this approach. MARIA ESTHER
== END 2016-12-14 16:10 | disposition home or self-care (01) | DRG 190 ==
LOC: 6SEL 16:09 → 5MS5E 12-08 18:05
PROVIDERS: ADMIT Family Medicine; ATTEND Family Medicine
PROC: 4B02XTZ Measurement of Cardiac Defibrillator, External Approach (ICD-10-PCS; principal; 2016-12-08)
DX: J44.1 Chronic obstructive pulmonary disease with (acute) exacerbation (principal); J96.21 Acute and chronic respiratory failure with hypoxia; J84.9 Interstitial pulmonary disease, unspecified; I95.9 Hypotension, unspecified; I25.82 Chronic total occlusion of coronary artery; I11.0 Hypertensive heart disease with heart failure; I27.2 Other secondary pulmonary hypertension; I50.22 Chronic systolic (congestive) heart failure; E66.2 Morbid (severe) obesity with alveolar hypoventilation; J45.51 Severe persistent asthma with (acute) exacerbation; J84.10 Pulmonary fibrosis, unspecified; Z99.81 Dependence on supplemental oxygen; R31.0 Gross hematuria; I25.5 Ischemic cardiomyopathy; I25.10 Atherosclerotic heart disease of native coronary artery without angina pectoris; I25.2 Old myocardial infarction; T48.6X6A Underdosing of antiasthmatics, initial encounter; K59.09 Other constipation; I49.3 Ventricular premature depolarization; T39.015A Adverse effect of aspirin, initial encounter; T45.525A Adverse effect of antithrombotic drugs, initial encounter; N20.0 Calculus of kidney; E66.9 Obesity, unspecified; E78.5 Hyperlipidemia, unspecified; N35.9 Urethral stricture, unspecified; T44.7X5A Adverse effect of beta-adrenoreceptor antagonists, initial encounter; N48.0 Leukoplakia of penis; E87.70 Fluid overload, unspecified; N40.0 Benign prostatic hyperplasia without lower urinary tract symptoms; R53.1 Weakness; M19.072 Primary osteoarthritis, left ankle and foot; R00.2 Palpitations; Z82.5 Family history of asthma and other chronic lower respiratory diseases; Z95.5 Presence of coronary angioplasty implant and graft; Z95.810 Presence of automatic (implantable) cardiac defibrillator; Z87.891 Personal history of nicotine dependence; Z83.3 Family history of diabetes mellitus; Z82.49 Family history of ischemic heart disease and other diseases of the circulatory system; Z79.01 Long term (current) use of anticoagulants; Z91.81 History of falling; Z87.828 Personal history of other (healed) physical injury and trauma; Z90.79 Acquired absence of other genital organ(s); Z90.49 Acquired absence of other specified parts of digestive tract; Z71.3 Dietary counseling and surveillance; Z87.19 Personal history of other diseases of the digestive system; Z87.09 Personal history of other diseases of the respiratory system; Z86.19 Personal history of other infectious and parasitic diseases; Z87.81 Personal history of (healed) traumatic fracture; Z91.041 Radiographic dye allergy status; Z88.8 Allergy status to other drugs, medicaments and biological substances; Z91.048 Other nonmedicinal substance allergy status; Z87.01 Personal history of pneumonia (recurrent); Z77.098 Contact with and (suspected) exposure to other hazardous, chiefly nonmedicinal, chemicals; Z79.02 Long term (current) use of antithrombotics/antiplatelets; Z79.82 Long term (current) use of aspirin; Z79.1 Long term (current) use of non-steroidal anti-inflammatories (NSAID); Z79.899 Other long term (current) drug therapy; Z91.14 Patient's other noncompliance with medication regimen; Z91.19 Patient's noncompliance with other medical treatment and regimen; Z86.79 Personal history of other diseases of the circulatory system
CPT/HCPCS: 71020; 71275; 74000; 76770; 80053; 80061; 81001; 82533; 83036; 83735; 83880; 84443; 84484; 85025; 85379; 87086; 93005; 93306; 93880; 94640; 94760

== ENCOUNTER 2016-12-25 13:19 | Inpatient (IN) | payer MEDICARE ==
[2016-12-25 14:02] LABS: Basophils # (A) 0.1 k/uL (0-0.2); Basophils % (A) 1 %; CH 30.9; Eosinophils # (A) 0.6 k/uL (0-0.7); Eosinophils % (A) 9 %; HCT 52.1 % (39.0-53.0); HDW 2.44; HGB 16.1 gm/dL (13.0-17.5); Luc # (Auto) 0.12; Luc % (Auto) 2; Lymphocytes # (A) 1.6 k/uL (1.0-4.8); Lymphocytes % (A) 23 %; MCH 30.1 pg (25.0-35.0); MCHC 30.9 g/dL (31.0-37.0); MCV 97.2 fL (80.0-100.0); Mean Platelet Volume 7.6; Monocytes # (A) 0.5 k/uL (0-1.0); Monocytes % (A) 7 %; Neutrophils # (A) 4.1 k/uL (1.3-7.7); Neutrophils % (A) 59 %; RBC 5.36 m/uL (4.30-5.90); RDW 15.4 % (11.5-15.5)
[2016-12-25 14:13] LABS: ALT 34 U/L (21-72); AST 23 U/L (17-59); Alkaline Phosphatase 125 U/L (38-126); Anion Gap 11 mmol/L; Blood Urea Nitrogen 20 mg/dL (9-20); Calcium 9.6 mg/dL (8.4-10.2); Carbon Dioxide 29 mmol/L (22-30); Chloride 102 mmol/L (98-107); Glucose 105 mg/dL (74-99); Magnesium 1.8 mg/dL (1.6-2.3); Non-African American GFR(MDRD) >60 (>60 ml/min/1.73 sqM); Potassium 4.5 mmol/L (3.5-5.1); Sodium 142 mmol/L (137-145); Total Bilirubin 0.7 mg/dL (0.2-1.3); Total Protein 6.9 g/dL (6.3-8.2)
--- NOTE | 2016-12-25 14:20 | ED ---
General Adult HPI - General Chief complaint: Chest Pain Stated complaint: Chest Pain Time Seen by Provider: 12/25/16 13:32 Source: patient, RN notes reviewed, old records reviewed Mode of arrival: ambulatory Limitations: no limitations - History of Present Illness Initial comments: This is a 76-year-old male with a year for evaluation. This patient presents for evaluation. He is presenting today for defibrillator Later firing. Patient has significant history of heart disease. [facility] family doctor for evaluation. Patient denies chest pain or shortness of breath. No change in medications. Patient also states his blood pressures running lower than normal and he has stopped he wanted his blood pressure medications. - Related Data Home Medications Medication Instructions Recorded Confirmed Aspirin EC [Ecotrin Low Dose] 81 mg PO DAILY@1200 06/18/15 12/25/16 Clopidogrel [Plavix] 75 mg PO HS@0400 02/12/16 12/25/16 Flaxseed-[place] 3,6,9 Fatty Acid 1 tab PO DAILY@1200 02/12/16 12/25/16 Glucosam/Anant-Msm1/C/Kvng/Bosw 1 tab PO BID@0400,1200 02/12/16 12/25/16 [Glucosamine-Chondroitin Tablet] Multivit-Min/FA/Lycopen/Lutein 1 tab PO DAILY@1200 02/12/16 12/25/16 [Centrum Silver Tablet] Sotalol [Betapace] 40 mg PO BID@0400,1200 02/12/16 12/25/16 Lisinopril [Zestril] 2.5 mg PO HS@0400 12/07/16 12/25/16 Loratadine [Alavert] 10 mg PO DAILY@1200 12/07/16 12/25/16 Naproxen Sodium [Aleve] 220 mg PO DAILY@1200 12/07/16 12/25/16 Previous Rx's Medication Instructions Recorded Carbamide Peroxide [Debrox Otic] 5 drops LEFT EAR BID #1 bottle 12/14/16 Ipratropium-Albuterol Nebulize 3 ml INHALATION RT-QID neb 12/14/16 [Duoneb 0.5 mg-3 mg/3 ml Soln] predniSONE 60 mg PO DAILY #15 tab 12/14/16 Allergies Allergy/AdvReac Type Severity Reaction Status Date / Time adhesive Allergy Rash/Hives Verified 12/25/16 13:57 Iodinated Contrast- Oral and Allergy Swelling Verified 12/25/16 13:57 IV Dye iodine Allergy Swelling Verified 12/25/16 13:57 Review of Systems ROS Statement: Those systems with pertinent positive or pertinent negative responses have been documented in the HPI. ROS Other: All systems not noted in ROS Statement are negative. Past Medical History Past Medical History: Asthma, Coronary Artery Disease (CAD), Chest Pain / Angina , COPD, Hypertension, Myocardial Infarction ([place]), Osteoarthritis (OA), Pneumonia , Prostate Disorder Additional Past Medical History / Comment(s): home 02 2 liters n/c: " PT NOT SURE HOW MANY IA'S HE'S TRULY HAD(FOUND ON PAST MED HX 4-PT STATED HE THINKS HE' S HAD MORE)" ,ARTHRITIS LT KNEE/FOOT, bronchitis, sinus problems, constipations , lt wrist/arm fx, hx falls, djd Last Myocardial Infarction Date:: UNK History of Any Multi-Drug Resistant Organisms: None Reported Past Surgical History: Adenoidectomy, Appendectomy, Heart Catheterization With Stent, Hernia Repair, Orthopedic Surgery, Tonsillectomy Additional Past Surgical History / Comment(s): 04/09/15 heart cath with 2 stents to prox circ, other past surguries include: CARDIAC STENTx5, BOWEL SX FOR TWISTED BOWELas child, LT TESTICAL REMOVED.ARTHROSCOPIC KNEE SX. CYST REMOVED(CHEST) LT MIDDLE FINGER SX DONE D/T INJURY.delvin ingiunal hernia repair Past Anesthesia/Blood Transfusion Reactions: No Reported Reaction Date of Last Stent Placement:: UNK Past Psychological History: Depression Smoking Status: Former smoker Past Alcohol Use History: Rare Past Drug Use History: None Reported - Past Family History Father Additional Family Medical History / Comment(s): 2001 Mother Family Medical History: Congestive Heart Failure (CHF), Diabetes Mellitus, Myocardial Infarction ([place]) Additional Family Medical History / Comment(s): 1983 General Exam Limitations: no limitations General appearance: alert, in no apparent distress Head exam: Present: atraumatic, normocephalic, normal inspection Eye exam: Present: normal appearance, PERRL, EOMI. Absent: scleral icterus, conjunctival injection, periorbital swelling ENT exam: Present: normal exam, mucous membranes moist Neck exam: Present: normal inspection. Absent: tenderness, meningismus, lymphadenopathy Respiratory exam: Present: normal lung sounds bilaterally. Absent: respiratory distress, wheezes, rales, rhonchi, stridor Cardiovascular Exam: Present: regular rate, normal rhythm, normal heart sounds. Absent: systolic murmur, diastolic murmur, rubs, gallop, clicks GI/Abdominal exam: Present: soft, normal bowel sounds. Absent: distended, tenderness, guarding, rebound, rigid Extremities exam: Present: normal inspection, full ROM, normal capillary refill. Absent: tenderness, pedal edema, joint swelling, calf tenderness Back exam: Present: normal inspection Neurological exam: Present: alert, oriented X3, CN II-XII intact Psychiatric exam: Present: normal affect, normal mood Skin exam: Present: warm, dry, intact, normal color. Absent: rash Course Vital Signs 12/25/16 13:24 Temperature 97.3 F L Pulse Rate 79 Respiratory 18 Rate Blood Pressure 108/52 O2 Sat by Pulse 83 L Oximetry - Reevaluation(s) Reevaluation #1: 12/25/16 14:27 Patient is without chest pain, no significant shortness of breath EKG Findings - EKG Comments: EKG Findings:: EKG shows normal sinus or mastoid 1, PA 160, QRS 112, QTC 449 Medical Decision Making - Medical Decision Making 76 now the ER for evaluation of the fibular discharged. Patient will be admitted for cardiac observation, evaluation and treatment. - Lab Data Result diagrams: 12/25/16 13:45 12/25/16 13:45 Lab Results 12/25/16 12/25/16 Range/Units 13:45 13:45 WBC 7.0 (3.8-10.6) k/uL RBC 5.36 (4.30-5.90) m/uL Hgb 16.1 (13.0-17.5) gm/dL Hct 52.1 (39.0-53.0) % MCV 97.2 (80.0-100.0) fL MCH 30.1 (25.0-35.0) pg MCHC 30.9 L (31.0-37.0) g/dL RDW 15.4 (11.5-15.5) % Plt Count 206 (150-450) k/uL Neutrophils % 59 % Lymphocytes % 23 % Monocytes % 7 % Eosinophils % 9 % Basophils % 1 % Neutrophils # 4.1 (1.3-7.7) k/uL Lymphocytes # 1.6 (1.0-4.8) k/uL Monocytes # 0.5 (0-1.0) k/uL Eosinophils # 0.6 (0-0.7) k/uL Basophils # 0.1 (0-0.2) k/uL Sodium 142 (137-145) mmol/L Potassium 4.5 (3.5-5.1) mmol/L Chloride 102 (98-107) mmol/L Carbon Dioxide 29 (22-30) mmol/L Anion Gap 11 mmol/L BUN 20 (9-20) mg/dL Creatinine 0.70 (0.66-1.25) mg/dL Est GFR (MDRD) Af Amer >60 (>60 ml/min/1.73 sqM) Est GFR (MDRD) Non-Af >60 (>60 ml/min/1.73 sqM) Glucose 105 H (74-99) mg/dL Calcium 9.6 (8.4-10.2) mg/dL Phosphorus 3.0 (2.5-4.5) mg/dL Magnesium 1.8 (1.6-2.3) mg/dL Total Bilirubin 0.7 (0.2-1.3) mg/dL AST 23 (17-59) U/L ALT 34 (21-72) U/L Alkaline Phosphatase 125 (38-126) U/L Total Protein 6.9 (6.3-8.2) g/dL Albumin 3.6 (3.5-5.0) g/dL Critical Care Time Critical Care Time: Yes Total Critical Care Time: 31 Disposition Clinical Impression: Defibrillator discharge Disposition: ADMITTED IP TO THIS HOSP Condition: Fair
[2016-12-25] MEDS ORDERED: MORPHINE SULFATE 4 MG/ML SYRINGE IV PRN (14:24)
[2016-12-25] MEDS ORDERED: NITROGLYCERIN SL TABS 0.4 MG TAB SUBLINGUAL PRN (14:24)
[2016-12-25] MEDS ORDERED: ASPIRIN 81 MG CHEW PO STA (14:24)
[2016-12-25 14:32] LABS: Creatine Kinase <20 U/L (55-170)
[2016-12-25 14:44] LABS: Creatine Kinase MB 1.1 ng/mL (0.0-2.4); Troponin I 0.015 ng/mL (0.000-0.034)
[2016-12-25] MEDS: SODIUM CHLORIDE 0.9% 1,000 ML IV SCH ×2 (14:46→20:02)
[2016-12-25] MEDS: CARBAMIDE PEROXIDE 6.5% DROPS 15 ML BTL LEFT EAR SCH ×2 (20:02→20:10)
[2016-12-25] MEDS: IPRATROPIUM-ALBUTEROL 3 ML NEB INHALATION SCH (20:08)
[2016-12-25 20:21] LABS: Creatine Kinase <20 U/L (55-170)
[2016-12-25 20:32] LABS: Troponin I 0.016 ng/mL (0.000-0.034)
[2016-12-26] MEDS: LISINOPRIL 2.5 MG TAB PO SCH ×2 (01:31→23:34)
[2016-12-26] MEDS: SOTALOL 80 MG TAB PO SCH ×3 (01:52→23:34)
[2016-12-26] MEDS: CLOPIDOGREL 75 MG TAB PO SCH ×2 (01:52→23:34)
[2016-12-26] MEDS: predniSONE 20 MG TAB PO SCH ×2 (01:52→01:58)
[2016-12-26 01:59] LABS: Creatine Kinase MB 1.2 ng/mL (0.0-2.4); Troponin I 0.021 ng/mL (0.000-0.034)
[2016-12-26 02:42] LABS: Cholesterol 225 mg/dL (<200); HDL Cholesterol 36 mg/dL (40-60)
[2016-12-26] MEDS ORDERED: NON-FORMULARY DRUG (Glucosam/Chon-Msm1/C/Mang/Bosw [Glucosamine-Chondroitin Tablet] 1 TAB) PO SCH (04:00)
[2016-12-26] MEDS: IPRATROPIUM-ALBUTEROL 3 ML NEB INHALATION SCH ×4 (08:15→20:46)
[2016-12-26] MEDS: CARBAMIDE PEROXIDE 6.5% DROPS 15 ML BTL LEFT EAR SCH ×2 (08:55→20:12)
[2016-12-26] MEDS: NAPROXEN 250 MG TAB PO SCH (08:59)
[2016-12-26] MEDS: LORATADINE 10 MG TAB PO SCH (09:00)
[2016-12-26] MEDS ORDERED: ASPIRIN 325 MG TAB PO SCH (09:00)
[2016-12-26] MEDS: MULTIVITAMINS, THERA 1 EACH TAB PO SCH (09:00)
[2016-12-26] MEDS: SODIUM CHLORIDE 0.9% 1,000 ML IV SCH ×2 (10:34→21:20)
[2016-12-26] MEDS: ASPIRIN 81 MG CHEW PO SCH (10:35)
[2016-12-26] MEDS: ENOXAPARIN 40 MG/0.4 ML SYRINGE SQ SCH (10:35)
[2016-12-26] MEDS ORDERED: [UNRECOGNIZED DRUG - OTHER] PO SCH (12:00)
--- NOTE | 2016-12-26 12:15 | P.CRDCN ---
History of Present Illness Consult date: 12/26/16 Chief complaint: ICD firing History of present illness: This is a pleasant 76-year-old gentleman with a past medical history significant for CAD and prior stenting with unknown details, severe ischemic cardiomyopathy and status post ICD, COPD, hypertension, dyslipidemia, presented to the hospital because of ICD firing. The patient was at home yesterday when he felt dizzy and lightheaded and he had an ICD shock. He is unable to give me a detailed history but it seems that the patient lost his consciousness. He did not have any symptoms of chest pain or discomfort or difficulty breathing. During the hospitalization he has been maintaining normal sinus rhythm and without any arrhythmia. He stated that he has been a bit more short of breath lately without any lower extremities edema and without any He has been able to lay flat in bed without being short of breath at this point. Past Medical History Past Medical History: Asthma, Coronary Artery Disease (CAD), Chest Pain / Angina , COPD, Hypertension, Myocardial Infarction ([place]), Osteoarthritis (OA), Pneumonia Additional Past Medical History / Comment(s): home 02 2 liters n/c: " PT NOT SURE HOW MANY [place]'S HE'S TRULY HAD(FOUND ON PAST MED HX 4-PT STATED HE THINKS HE' S HAD MORE)" ,ARTHRITIS LT KNEE/FOOT, bronchitis, sinus problems, constipations , lt wrist/arm fx, hx falls, djd Last Myocardial Infarction Date:: UNK History of Any Multi-Drug Resistant Organisms: None Reported Past Surgical History: Adenoidectomy, Appendectomy, Heart Catheterization With Stent, Hernia Repair, Orthopedic Surgery, Tonsillectomy Additional Past Surgical History / Comment(s): 04/09/15 heart cath with 2 stents to prox circ, other past surguries include: CARDIAC STENTx5, BOWEL SX FOR TWISTED BOWELas child, LT TESTICAL REMOVED.ARTHROSCOPIC KNEE SX. CYST REMOVED(CHEST) LT MIDDLE FINGER SX DONE D/T INJURY.delvin ingiunal hernia repair Past Anesthesia/Blood Transfusion Reactions: No Reported Reaction Date of Last Stent Placement:: UNK Past Psychological History: Depression Additional Psychological History / Comment(s): pt lives alone in his home-has 1 cat. is independant but does have a cane/walker/wheel chair to use if needed. no outside services recieved. Smoking Status: Former smoker Past Alcohol Use History: Rare Additional Past Alcohol Use History / Comment(s): STARTED SMOKING AT AGE 17- SMOKED 1 PPD QUIT 2011 Past Drug Use History: None Reported - Past Family History Father Additional Family Medical History / Comment(s): 2001 Mother Family Medical History: Congestive Heart Failure (CHF), Diabetes Mellitus, Myocardial Infarction ([place]) Additional Family Medical History / Comment(s): 1983 Medications and Allergies Home Medications Medication Instructions Recorded Confirmed Type Aspirin EC [Ecotrin Low Dose] 81 mg PO DAILY@1200 06/18/15 12/25/16 History Clopidogrel [Plavix] 75 mg PO HS@0400 02/12/16 12/25/16 History Flaxseed-[place] 3,6,9 Fatty Acid 1 tab PO DAILY@1200 02/12/16 12/25/16 History Glucosam/Anant-Msm1/C/Kvng/Bosw 1 tab PO BID@0400,1200 02/12/16 12/25/16 History [Glucosamine-Chondroitin Tablet] Multivit-Min/FA/Lycopen/Lutein 1 tab PO DAILY@1200 02/12/16 12/25/16 History [Centrum Silver Tablet] Sotalol [Betapace] 40 mg PO BID@0400,1200 02/12/16 12/25/16 History Lisinopril [Zestril] 2.5 mg PO HS@0400 12/07/16 12/25/16 History Loratadine [Alavert] 10 mg PO DAILY@1200 12/07/16 12/25/16 History Naproxen Sodium [Aleve] 220 mg PO DAILY@1200 12/07/16 12/25/16 History Allergies Allergy/AdvReac Type Severity Reaction Status Date / Time adhesive Allergy Rash/Hives Verified 12/25/16 13:57 Iodinated Contrast- Oral and Allergy Swelling Verified 12/25/16 13:57 IV Dye iodine Allergy Swelling Verified 12/25/16 13:57 Physical Exam Vitals: Vital Signs Temp Pulse Pulse Pulse Resp BP BP 12/26/16 11:25 64 12/26/16 11:11 64 12/26/16 08:27 66 12/26/16 08:18 66 12/26/16 08:00 97.2 F L 67 67 16 94/43 12/26/16 04:00 65 16 86/50 12/26/16 00:00 97.5 F L 76 17 86/50 12/25/16 20:18 68 12/25/16 20:08 68 12/25/16 20:00 97.6 F 68 18 84/51 12/25/16 18:53 103/53 12/25/16 18:40 92/50 12/25/16 18:15 85/50 12/25/16 15:30 97.7 F 78 18 106/63 12/25/16 14:54 77 20 137/69 12/25/16 13:24 97.3 F L 79 18 108/52 Pulse Ox 12/26/16 11:25 12/26/16 11:11 12/26/16 08:27 12/26/16 08:18 94 L 12/26/16 08:00 87 L 12/26/16 04:00 92 L 12/26/16 00:00 91 L 12/25/16 20:18 12/25/16 20:08 12/25/16 20:00 91 L 12/25/16 18:53 12/25/16 18:40 12/25/16 18:15 12/25/16 15:30 93 L 12/25/16 14:54 94 L 12/25/16 13:24 83 L Intake and Output 12/25/16 12/26/16 12/26/16 22:59 06:59 14:59 Intake Total 360 1000 Output Total 720 500 Balance 360 280 -500 Intake: IV 1000 Sodium Chloride 0.9% 1, 1000 000 ml @ 100 mls/hr IV . Q10H [facility] Rx#:[id number] Oral 360 Output: Urine 720 500 Other: Voiding Method Urinal Urinal Urinal Weight 125.191 kg 124.8 kg - Constitutional General appearance: no acute distress - Respiratory Respiratory: bilateral: CTA - Cardiovascular Rhythm: regular Heart sounds: normal: S1, S2 Results 12/25/16 13:45 12/25/16 13:45 Cardiac Enzymes 12/25/16 12/25/16 12/25/16 Range/Units 13:45 13:45 19:43 AST 23 (17-59) U/L CK-MB (CK-2) 1.1 1.0 (0.0-2.4) ng/mL Troponin I 0.015 0.016 (0.000-0.034) ng/mL 12/26/16 Range/Units 01:12 AST (17-59) U/L CK-MB (CK-2) 1.2 (0.0-2.4) ng/mL Troponin I 0.021 (0.000-0.034) ng/mL Lipids 10/25/16 Range/Units 13:45 Triglycerides 217 H (<150) mg/dL Cholesterol 225 H (<200) mg/dL HDL Cholesterol 36 L (40-60) mg/dL CBC 12/25/16 Range/Units 13:45 WBC 7.0 (3.8-10.6) k/uL RBC 5.36 (4.30-5.90) m/uL Hgb 16.1 (13.0-17.5) gm/dL Hct 52.1 (39.0-53.0) % Plt Count 206 (150-450) k/uL Comprehensive Metabolic Panel 12/25/16 Range/Units 13:45 Sodium 142 (137-145) mmol/L Potassium 4.5 (3.5-5.1) mmol/L Chloride 102 (98-107) mmol/L Carbon Dioxide 29 (22-30) mmol/L BUN 20 (9-20) mg/dL Creatinine 0.70 (0.66-1.25) mg/dL Glucose 105 H (74-99) mg/dL Calcium 9.6 (8.4-10.2) mg/dL AST 23 (17-59) U/L ALT 34 (21-72) U/L Alkaline Phosphatase 125 (38-126) U/L Total Protein 6.9 (6.3-8.2) g/dL Albumin 3.6 (3.5-5.0) g/dL Current Medications Generic Name Dose Route Start Last Admin Trade Name Freq PRN Reason Stop Dose Admin Albuterol/Ipratropium 3 ml 12/25/16 20:00 12/26/16 11:11 Duoneb 0.5 Mg-3 Mg/3 Ml Soln INHALATION 3 ml RT-QID [facility] Administration Aspirin 81 mg 12/26/16 12:00 12/26/16 10:35 Aspirin PO Not Given DAILY@1200 [facility] Carbamide Perox/Anhydrous Glycerin 5 drops 12/25/16 21:00 12/26/16 08:55 Debrox Otic LEFT EAR Not Given BID [facility] Clopidogrel Bisulfate 75 mg 12/26/16 04:00 12/26/16 01:52 Plavix PO 75 mg HS@0400 [facility] Administration Enoxaparin Sodium 40 mg 12/26/16 09:00 12/26/16 10:35 Lovenox SQ 40 mg DAILY [facility] Administration Sodium Chloride 1,000 mls @ 100 mls/hr 12/25/16 14:30 12/26/16 10:34 Saline 0.9% IV 100 mls/hr .Q10H [facility] Administration Insulin Human Lispro 0 unit 12/26/16 12:30 Humalog SQ ACHS [facility] Protocol Lisinopril 2.5 mg 12/26/16 04:00 12/26/16 01:31 Zestril PO Not Given HS@0400 [facility] Loratadine 10 mg 12/26/16 12:00 12/26/16 09:00 Claritin PO 10 mg DAILY@1200 [facility] Administration Methylprednisolone Sodium Succinate 40 mg 12/26/16 16:00 Solu-Medrol IV Q8HR [facility] Morphine Sulfate 4 mg 12/25/16 14:24 Morphine Sulfate (Inj) IV Q5M PRN Chest Pain Multivitamins 1 each 12/26/16 12:00 12/26/16 09:00 Theragran PO 1 each DAILY@1200 [facility] Administration Naproxen 250 mg 12/26/16 12:00 12/26/16 08:59 Naprosyn PO 250 mg DAILY@1200 [facility] Administration Nitroglycerin 0.4 mg 12/25/16 14:24 Nitrostat SUBLINGUAL Q5M PRN Chest Pain Sotalol HCl 40 mg 12/26/16 04:00 12/26/16 09:00 Betapace PO 40 mg BID@0400,1200 [facility] Administration Intake and Output 12/25/16 12/26/16 12/26/16 22:59 06:59 14:59 Intake Total 360 1000 Output Total 720 500 Balance 360 280 -500 Intake: IV 1000 Sodium Chloride 0.9% 1, 1000 000 ml @ 100 mls/hr IV . Q10H [facility] Rx#:[id number] Oral 360 Output: Urine 720 500 Other: Voiding Method Urinal Urinal Urinal Weight 125.191 kg 124.8 kg 12/25/16 13:45 12/25/16 13:45 Assessment and Plan Plan: This is a pleasant 76-year-old gentleman with known CAD and prior stenting, severe ischemic cardiomyopathy and status post AICD, as well as COPD, was admitted to the hospital with ICD firing. I am going to check the device and interrogated the device. The patient does not seems to be in overt heart failure but I will obtain a BNP and also chest x-ray. Will continue the patient on the current medical treatment at this point and follow-up with him.
[2016-12-26 12:16] LABS: Glucose,Whole Blood 117 mg/dL (75-99)
[2016-12-26] MEDS: INSULIN LISPRO (humaLOG) 300 UNIT/3 ML VIAL SQ SCH ×3 (12:20→22:42)
[2016-12-26] MEDS: methylPREDNISolone SOD SUCCI 40 MG/ML 1 ML VIAL IV SCH ×2 (16:16→23:19)
[2016-12-26 17:04] LABS: Glucose,Whole Blood 86 mg/dL (75-99)
--- NOTE | 2016-12-26 19:19 | XR ---
EXAMINATION TYPE: XR chest 1V DATE OF EXAM: 12/26/2016 COMPARISON: November 12, 2016. HISTORY: Shortness of breath with CHF. TECHNIQUE: Single frontal view of the chest is obtained. FINDINGS: There is bilateral marked pulmonary edema. There are small bilateral pleural effusions. Th e cardiac silhouette is enlarged. There is no definite pneumothorax. There is again an opacity in the right midlung which does not appear significantly changed since the previous study. There is an elec tronic device noted overlying the left hemithorax. IMPRESSION: Findings don't appear significantly changed since the previous study.
[2016-12-26 21:09] LABS: Glucose,Whole Blood 158 mg/dL (75-99)
[2016-12-27 05:49] LABS: Glucose,Whole Blood 183 mg/dL (75-99)
[2016-12-27] MEDS: SODIUM CHLORIDE 0.9% 1,000 ML IV SCH ×2 (06:36→12:39)
[2016-12-27] MEDS: INSULIN LISPRO (humaLOG) 300 UNIT/3 ML VIAL SQ SCH ×4 (06:36→21:16)
[2016-12-27] MEDS: IPRATROPIUM-ALBUTEROL 3 ML NEB INHALATION SCH ×4 (08:16→19:43)
--- NOTE | 2016-12-27 08:27 | HP ---
CHIEF COMPLAINT: 76 -year-old white male with past medical history of coronary artery disease and stenting and severe ischemic cardiomyopathy status post ICD, COPD, end stage; hypertension, dyslipidemia came to the hospital due to ICD firing multiple times as well as significant hypoxemia with walking across the floor. He has dizziness, lightheadedness at home. Got an ICD shock. He apparently lost consciousness. He woke up. He came to the hospital after worsening shortness of breath and hypoxemia. When he ambulates even with his oxygen levels for any prolonged period of walking even in the house as well as ICD shocking. Past medical history is: Asthma, coronary artery disease, angina, COPD, hypertension, myocardial infarction, osteoarthritis, pneumonia, arthritis, chronic constipation, chronic sinusitis, chronic COPD. Chronic nicotine addiction, noncompliance with updraft treatments. Past surgical history: Adenoidectomy, appendectomy, heart catheterization with stent and hernia repair, orthopedic surgery, tonsillectomy, heart catheterization times two in the past, cardiac stents times five prior, twisted bowel as a child, orthoscopic knee surgeries, testicle removed, cyst surgery, bilateral inguinal hernia repairs. FAMILY HISTORY: Father . Mother , diabetes, myocardial infarction. Home medications: 1. Aspirin 81 mg daily. 2. Plavix 75 mg daily. 3. Multivitamin one tablet daily. 4. Glucosamine one tablet b.i.d. 5. Multivitamin daily. 6. Betapace 40 mg b.i.d. 7. Zestril 2.5 daily. 8. Antivert. 9. ( ) 10 mg daily. 10. Zestril 2.5 daily. 11. Naprosyn 220 daily. ALLERGIES: IODINE, SWELLING. PHYSICAL EXAMINATION: Temp 97.2, respiratory rate 16 to 20. Pulses 60s to 70s. Respiratory: Transmitted upper sounds times four. Scattered wheeze times four. O2 sat 94 to 87 on 2 L. Endocrine: BMI is over 40. Was 124 kg. Obese. Poor dentition. Shaggy appearance. Hematological: ( ) 2+ pedal edema. GI: Distended, obesity. Labs show white count 7.0. Hemoglobin 16. Hematocrit 52. Sodium 142, potassium 4.5, platelets 105, Bun 20, creatinine 0.70. Negative troponins times three. Triglycerides 217, cholesterol 225. Albumin 3.6. ASSESSMENT: 1. Acute defibrillator firing, ICD firing. 2. Coronary artery disease with stents. 3. Ischemic cardiomyopathy. Pulmonary and Cardiology consult. 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 MARIA ESTHER
[2016-12-27] MEDS: CARBAMIDE PEROXIDE 6.5% DROPS 15 ML BTL LEFT EAR SCH ×2 (09:05→21:13)
[2016-12-27] MEDS: methylPREDNISolone SOD SUCCI 40 MG/ML 1 ML VIAL IV SCH ×2 (09:05→17:21)
[2016-12-27] MEDS: ENOXAPARIN 40 MG/0.4 ML SYRINGE SQ SCH (09:05)
--- NOTE | 2016-12-27 11:11 | P.CRDCN ---
History of Present Illness Reason for Consult (text): inappropriate ICD shock, subcut ICD generator dislodged to a more medial location History of present illness: Mr. Brasher was admitted with an inappropriate ICD shock on account of displacement of the subcutaneous ICD from its lateral location on the chest to a more medial location. The patient sleeps on the left side and states that the device has moved since implant. He has received appropriate ICD shocks in the past but now his R waves a diminutive and when tested in all vectors that wasn't an adequate margin for the QRS voltage relative to the T wave. The QRS amplitude and the T wave amplitude are similar in all vectors. He received an inappropriate shock on account of double counting on this admission I had a detailed discussion with him and I recommended that the ICD generator needs to be repositioned in his original pocket The patient is not sure if he wants to get this done. He is worried about general anesthesia given his underlying lung disease and cardiac condition. While this is an appropriate concern, he will continue to receive inappropriate ICD shocks and explained this time. However the patient is not convinced that he received an inappropriate ICD shock because he states that he was feeling badly prior to the shock and felt well afterwards. Recommend Subcutaneous ICD repositioning back into its lateral subfascial pocket Patient will talk to his family members regarding this procedure before he consents to it I have asked his nurse to start prepping his skin Past Medical History Past Medical History: Asthma, Coronary Artery Disease (CAD), Chest Pain / Angina , COPD, Hypertension, Myocardial Infarction (VT), Osteoarthritis (OA), Pneumonia Additional Past Medical History / Comment(s): home 02 2 liters n/c: " PT NOT SURE HOW MANY VT'S HE'S TRULY HAD(FOUND ON PAST MED HX 4-PT STATED HE THINKS HE' S HAD MORE)" ,ARTHRITIS LT KNEE/FOOT, bronchitis, sinus problems, constipations , lt wrist/arm fx, hx falls, djd Last Myocardial Infarction Date:: UNK History of Any Multi-Drug Resistant Organisms: None Reported Past Surgical History: Adenoidectomy, Appendectomy, Heart Catheterization With Stent, Hernia Repair, Orthopedic Surgery, Tonsillectomy Additional Past Surgical History / Comment(s): 04/09/15 heart cath with 2 stents to prox circ, other past surguries include: CARDIAC STENTx5, BOWEL SX FOR TWISTED BOWELas child, LT TESTICAL REMOVED.ARTHROSCOPIC KNEE SX. CYST REMOVED(CHEST) LT MIDDLE FINGER SX DONE D/T INJURY.delvin ingiunal hernia repair Past Anesthesia/Blood Transfusion Reactions: No Reported Reaction Date of Last Stent Placement:: UNK Past Psychological History: Depression Additional Psychological History / Comment(s): pt lives alone in his home-has 1 cat. is independant but does have a cane/walker/wheel chair to use if needed. no outside services recieved. Smoking Status: Former smoker Past Alcohol Use History: Rare Additional Past Alcohol Use History / Comment(s): STARTED SMOKING AT AGE 17- SMOKED 1 PPD QUIT 2011 Past Drug Use History: None Reported - Past Family History Father Additional Family Medical History / Comment(s): 2001 Mother Family Medical History: Congestive Heart Failure (CHF), Diabetes Mellitus, Myocardial Infarction (VT) Additional Family Medical History / Comment(s): 1983 Medications and Allergies Home Medications Medication Instructions Recorded Confirmed Type Aspirin EC [Ecotrin Low Dose] 81 mg PO DAILY@1200 06/18/15 12/25/16 History Clopidogrel [Plavix] 75 mg PO HS@0400 02/12/16 12/25/16 History Flaxseed-[place] 3,6,9 Fatty Acid 1 tab PO DAILY@119902/12/16 12/25/16 History Glucosam/Anant-Msm1/C/Kvng/Bosw 1 tab PO BID@0400,1200 02/12/16 12/25/16 History [Glucosamine-Chondroitin Tablet] Multivit-Min/FA/Lycopen/Lutein 1 tab PO DAILY@1200 02/12/16 12/25/16 History [Centrum Silver Tablet] Sotalol [Betapace] 40 mg PO BID@0400,1200 02/12/16 12/25/16 History Lisinopril [Zestril] 2.5 mg PO HS@0400 12/07/16 12/25/16 History Loratadine [Alavert] 10 mg PO DAILY@119912/07/16 12/25/16 History Naproxen Sodium [Aleve] 220 mg PO DAILY@1200 12/07/16 12/25/16 History Allergies Allergy/AdvReac Type Severity Reaction Status Date / Time adhesive Allergy Rash/Hives Verified 12/25/16 13:57 Iodinated Contrast- Oral and Allergy Swelling Verified 12/25/16 13:57 IV Dye iodine Allergy Swelling Verified 12/25/16 13:57 Physical Exam Vitals: Vital Signs Temp Pulse Pulse Resp BP Pulse Ox 12/27/16 08:00 97.1 F L 90 114/64 89 L 12/27/16 04:00 86 16 108/72 92 L 12/27/16 00:00 97.1 F L 89 17 114/64 90 L 12/26/16 21:11 60 12/26/16 20:59 60 12/26/16 20:00 97.4 F L 96 18 107/75 91 L 12/26/16 18:10 90 L 12/26/16 16:00 97 F L 67 16 100/66 90 L 12/26/16 14:24 95 12/26/16 12:00 96.6 F L 66 16 104/66 90 L 12/26/16 11:25 64 12/26/16 11:11 64 Intake and Output 12/26/16 12/27/16 12/27/16 22:59 06:59 14:59 Intake Total 1000 480 Output Total 1500 1300 600 Balance -1500 -300 -120 Intake: IV 1000 Sodium Chloride 0.9% 1, 1000 000 ml @ 100 mls/hr IV . Q10H [facility] Rx#:[id number] Oral 480 Output: Urine 1500 1300 600 Other: Voiding Method Urinal Urinal # Voids 1 1 500 # Bowel Movements 1 Weight 123.8 kg Results 12/25/16 13:45 12/25/16 13:45 Current Medications Generic Name Dose Route Start Last Admin Trade Name Freq PRN Reason Stop Dose Admin Albuterol/Ipratropium 3 ml 12/25/16 20:00 12/27/16 08:16 Duoneb 0.5 Mg-3 Mg/3 Ml Soln INHALATION Not Given RT-QID [facility] Aspirin 81 mg 12/26/16 12:00 12/26/16 10:35 Aspirin PO Not Given DAILY@1200 [facility] Carbamide Perox/Anhydrous Glycerin 5 drops 12/25/16 21:00 12/27/16 09:05 Debrox Otic LEFT EAR Not Given BID [facility] Clopidogrel Bisulfate 75 mg 12/26/16 04:00 12/26/16 23:34 Plavix PO 75 mg HS@0400 [facility] Administration Enoxaparin Sodium 40 mg 12/26/16 09:00 12/27/16 09:05 Lovenox SQ 40 mg DAILY [facility] Administration Sodium Chloride 1,000 mls @ 100 mls/hr 12/25/16 14:30 12/27/16 06:36 Saline 0.9% IV Not Given .Q10H [facility] Insulin Human Lispro 0 unit 12/26/16 12:30 12/27/16 06:36 Humalog SQ 4 unit ACHS [facility] Administration Protocol Lisinopril 2.5 mg 12/26/16 04:00 12/26/16 23:34 Zestril PO 2.5 mg HS@0400 [facility] Administration Loratadine 10 mg 12/26/16 12:00 12/26/16 09:00 Claritin PO 10 mg DAILY@1200 [facility] Administration Methylprednisolone Sodium Succinate 40 mg 12/26/16 16:00 12/27/16 09:05 Solu-Medrol IV 40 mg Q8HR [facility] Administration Morphine Sulfate 4 mg 12/25/16 14:24 Morphine Sulfate (Inj) IV Q5M PRN Chest Pain Multivitamins 1 each 12/26/16 12:00 12/26/16 09:00 Theragran PO 1 each DAILY@1200 [facility] Administration Naproxen 250 mg 12/26/16 12:00 12/26/16 08:59 Naprosyn PO 250 mg DAILY@1200 [facility] Administration Nitroglycerin 0.4 mg 12/25/16 14:24 Nitrostat SUBLINGUAL Q5M PRN Chest Pain Sotalol HCl 40 mg 12/26/16 04:00 12/26/16 23:34 Betapace PO 40 mg BID@0400,1200 [facility] Administration Intake and Output 12/26/16 12/27/16 12/27/16 22:59 06:59 14:59 Intake Total 1000 480 Output Total 1500 1300 600 Balance -1500 -300 -120 Intake: IV 1000 Sodium Chloride 0.9% 1, 1000 000 ml @ 100 mls/hr IV . Q10H [facility] Rx#:[id number] Oral 480 Output: Urine 1500 1300 600 Other: Voiding Method Urinal Urinal # Voids 1 1 500 # Bowel Movements 1 Weight 123.8 kg 12/25/16 13:45 12/25/16 13:45
[2016-12-27] MEDS ORDERED: ceFAZolin 2 GM in SODIUM CHLORIDE 0.9% 100 ML IVPB ONE (11:30)
[2016-12-27 11:56] LABS: Hemoglobin A1C 5.9 % (4.2-6.1)
[2016-12-27 12:24] LABS: Glucose,Whole Blood 133 mg/dL (75-99)
[2016-12-27] MEDS: ASPIRIN 81 MG CHEW PO SCH (12:39)
[2016-12-27] MEDS: LORATADINE 10 MG TAB PO SCH (12:39)
[2016-12-27] MEDS: SOTALOL 80 MG TAB PO SCH (12:40)
[2016-12-27] MEDS: MULTIVITAMINS, THERA 1 EACH TAB PO SCH (12:40)
[2016-12-27] MEDS: NAPROXEN 250 MG TAB PO SCH (12:40)
--- NOTE | 2016-12-27 16:09 | P.PN ---
Subjective Principal diagnosis: AICD discharge This is a 76-year-old gentleman with known history of coronary artery disease, ischemic cardiomyopathy with prior AICD, hypertension, hyperlipidemia, nicotine dependence, COPD, who was admitted to the hospital with an inappropriate ICD shock on account of displacement of the subcutaneous ICD from its lateral location on the chest to a more medial location. Patient was seen in consultation by Dr. Arango today and his recommendation was to reposition the ICD back to its lateral subfascial pocket. Patient wishes to speak further about this with his family before making a decision. Blood pressure today is stable 100/60, heart rate in the 70s, 92% on 3 L of oxygen. Objective - Vital Signs Vital signs: Vital Signs Temp 97.1 F L 12/27/16 08:00 Pulse 70 12/27/16 15:18 Resp 16 12/27/16 04:00 BP 100/61 12/27/16 12:00 Pulse Ox 92 L 12/27/16 12:00 Intake & Output 12/26/16 12/27/16 12/27/16 18:59 06:59 18:59 Intake Total 1000 720 Output Total 2300 1600 600 Balance -2300 -600 120 Weight 123.8 kg Intake: IV 1000 Sodium Chloride 0.9% 1, 1000 000 ml @ 100 mls/hr IV . Q10H [facility] Rx#:[id number] Oral 720 Output: Urine 2300 1600 600 Other: Voiding Method Urinal Urinal # Voids 1 500 # Bowel Movements 1 - Exam PHYSICAL EXAMINATION: HEENT: Head is atraumatic, normocephalic. Pupils equal, round. Neck is supple. There is no elevated jugular venous pressure. HEART EXAMINATION: Heart S1, S2 normal. No murmur or gallop heard. CHEST EXAMINATION: Decreased air exchange with fine wheezes throughout ABDOMEN: Soft, ,nontender. Bowel sounds are heard. No organomegaly noted. EXTREMITIES: 2+ peripheral pulses with evidence of peripheral edema and no calf tenderness noted. NEUROLOGIC [patient is awake, alert and oriented -3.] . - Labs CBC & Chem 7: 12/25/16 13:45 12/25/16 13:45 Labs: Abnormal Lab Results - Last 24 Hours (Table) 12/26/16 12/27/16 12/27/16 Range/Units 21:07 05:47 11:54 POC Glucose (mg/dL) 158 H 183 H 133 H (75-99) mg/dL Assessment and Plan (1) HTN (hypertension) Status: Acute (2) Hyperlipemia Status: Acute (3) Defibrillator discharge Status: Acute (4) COPD (chronic obstructive pulmonary disease) Status: Acute (5) Ischemic cardiomyopathy Status: Acute Plan: Patient was admitted with inappropriate AICD shock on account of displacement of the subcutaneous ICD from its lateral location on the chest to a more medial location. He was advised by Dr. Arango to undergo repositioning of the ICD back to its lateral subfascial pocket. Patient wishes to discuss this further with his family this evening and make a decision in the morning. DNP note has been reviewed, I agree with a documented findings and plan of care. Patient was seen and examined.
--- NOTE | 2016-12-27 16:26 | P.CNPUL ---
History of Present Illness Consult date: 12/27/16 Requesting physician: Alan Otero Reason for consult: dyspnea, abnormal CXR/CT Chief complaint: Shortness of breath, defibrillator firing History of present illness: This is a very pleasant 76-year-old gentleman who follows with Dr. Alan Otero as his primary care physician. He has history of coronary artery disease, severe ischemic cardiomyopathy status post AICD placement, chronic obstructive pulmonary disease, chronic hypoxemia with oxygen at home, hypertension, as the arthritis, chronic sinusitis. Patient presented here on after stating his defibrillator fired last week. He has been seen and evaluated by Dr. Friedman. The firing was inappropriate. He may need the device repositioned. He does have significant ongoing shortness of breath with minimal exertion. He has orthopnea and paroxysmal nocturnal dyspnea. We're consulted for Dr. Cornell who is out of town. He is seen on the selective care unit resting fairly comfortable in bed. He is still quite dyspneic on minimal exertion. His chest x-ray reveals evidence of congestive heart failure with some suspected underlying interstitial lung disease as well. He has significant clubbing of the fingers. Has has significant lower extremity peripheral edema. He also states he does not take his Lasix or diuretics at home as he does not want to "live in the bathroom". He denies any fever chills or night sweats. His cough is occasionally productive which is his been white but he feels is sinus drainage. Afebrile. No leukocytosis. ProBNP 474 and troponins negative. Review of Systems 14 point review of system was conducted. All negative other than as mentioned in the HPI. Past Medical History Past Medical History: Asthma, Coronary Artery Disease (CAD), Chest Pain / Angina , COPD, Hypertension, Myocardial Infarction (CT), Osteoarthritis (OA), Pneumonia Additional Past Medical History / Comment(s): home 02 2 liters n/c: " PT NOT SURE HOW MANY CT'S HE'S TRULY HAD(FOUND ON PAST MED HX 4-PT STATED HE THINKS HE' S HAD MORE)" ,ARTHRITIS LT KNEE/FOOT, bronchitis, sinus problems, constipations , lt wrist/arm fx, hx falls, djd Last Myocardial Infarction Date:: UNK History of Any Multi-Drug Resistant Organisms: None Reported Past Surgical History: Adenoidectomy, Appendectomy, Heart Catheterization With Stent, Hernia Repair, Orthopedic Surgery, Tonsillectomy Additional Past Surgical History / Comment(s): 04/09/15 heart cath with 2 stents to prox circ, other past surguries include: CARDIAC STENTx5, BOWEL SX FOR TWISTED BOWELas child, LT TESTICAL REMOVED.ARTHROSCOPIC KNEE SX. CYST REMOVED(CHEST) LT MIDDLE FINGER SX DONE D/T INJURY.delvin ingiunal hernia repair Past Anesthesia/Blood Transfusion Reactions: No Reported Reaction Date of Last Stent Placement:: UNK Past Psychological History: Depression Additional Psychological History / Comment(s): pt lives alone in his home-has 1 cat. is independant but does have a cane/walker/wheel chair to use if needed. no outside services recieved. Smoking Status: Former smoker Past Alcohol Use History: Rare Additional Past Alcohol Use History / Comment(s): STARTED SMOKING AT AGE 17- SMOKED 1 PPD QUIT 2011 Past Drug Use History: None Reported - Past Family History Father Additional Family Medical History / Comment(s): 2001 Mother Family Medical History: Congestive Heart Failure (CHF), Diabetes Mellitus, Myocardial Infarction (CT) Additional Family Medical History / Comment(s): 1983 Medications and Allergies Home Medications Medication Instructions Recorded Confirmed Type Aspirin EC [Ecotrin Low Dose] 81 mg PO DAILY@1200 06/18/15 12/25/16 History Clopidogrel [Plavix] 75 mg PO HS@0400 02/12/16 12/25/16 History Flaxseed-[place] 3,6,9 Fatty Acid 1 tab PO DAILY@119902/12/16 12/25/16 History Glucosam/Anant-Msm1/C/Kvng/Bosw 1 tab PO BID@0400,1200 02/12/16 12/25/16 History [Glucosamine-Chondroitin Tablet] Multivit-Min/FA/Lycopen/Lutein 1 tab PO DAILY@1200 02/12/16 12/25/16 History [Centrum Silver Tablet] Sotalol [Betapace] 40 mg PO BID@0400,1200 02/12/16 12/25/16 History Lisinopril [Zestril] 2.5 mg PO HS@0400 12/07/16 12/25/16 History Loratadine [Alavert] 10 mg PO DAILY@1200 12/07/16 12/25/16 History Naproxen Sodium [Aleve] 220 mg PO DAILY@1200 12/07/16 12/25/16 History Allergies Allergy/AdvReac Type Severity Reaction Status Date / Time adhesive Allergy Rash/Hives Verified 12/25/16 13:57 Iodinated Contrast- Oral and Allergy Swelling Verified 12/25/16 13:57 IV Dye iodine Allergy Swelling Verified 12/25/16 13:57 Physical Exam Vitals: Vital Signs Temp Pulse Pulse Resp BP Pulse Ox 12/27/16 15:18 70 12/27/16 15:06 70 12/27/16 12:00 75 100/61 92 L 12/27/16 11:29 60 12/27/16 11:19 56 L 12/27/16 08:00 97.1 F L 90 114/64 89 L 12/27/16 04:00 86 16 108/72 92 L 12/27/16 00:00 97.1 F L 89 17 114/64 90 L 12/26/16 21:11 60 12/26/16 20:59 60 12/26/16 20:00 97.4 F L 96 18 107/75 91 L 12/26/16 18:10 90 L Intake and Output 12/27/16 12/27/16 12/27/16 06:59 14:59 22:59 Intake Total 1000 720 Output Total 1300 600 Balance -300 120 Intake: IV 1000 Sodium Chloride 0.9% 1, 1000 000 ml @ 100 mls/hr IV . Q10H [facility] Rx#:[id number] Oral 720 Output: Urine 1300 600 Other: Voiding Method Urinal # Voids 1 500 # Bowel Movements 1 Weight 123.8 kg GENERAL EXAM: Obese. Alert, fairly comfortable in no apparent distress. HEAD: Normocephalic. EYES: Normal reaction of pupils, equal size. NOSE: Clear with pink turbinates. THROAT: No erythema or exudates. NECK: No masses, no JVD. CHEST: No chest wall deformity. LUNGS: Equal air entry with us in the posterior bases. Diminished. CVS: S1 and S2 normal with an audible murmur, regular rhythm. ABDOMEN: No hepatosplenomegaly, normal bowel sounds, no guarding or rigidity. Extremities: There is 1-2+ lower extremity peripheral edema. There is positive clubbing of the digits. No cyanosis. Peripheral pulses are intact. Results - Laboratory Findings CBC and BMP: 12/25/16 13:45 12/25/16 13:45 Abnormal lab findings: Abnormal Labs 10/25/16 12/25/16 12/25/16 13:45 13:45 13:45 MCHC 30.9 L Glucose POC Glucose (mg/dL) Total Creatine Kinase <20 L Triglycerides 217 H Cholesterol 225 H LDL Cholesterol, Calc 146 H HDL Cholesterol 36 L 12/25/16 12/25/16 12/26/16 13:45 19:43 01:12 MCHC Glucose 105 H POC Glucose (mg/dL) Total Creatine Kinase <20 L 21 L Triglycerides Cholesterol LDL Cholesterol, Calc HDL Cholesterol 12/26/16 12/26/16 12/27/16 12:11 21:07 05:47 MCHC Glucose POC Glucose (mg/dL) 117 H 158 H 183 H Total Creatine Kinase Triglycerides Cholesterol LDL Cholesterol, Calc HDL Cholesterol 12/27/16 11:54 MCHC Glucose POC Glucose (mg/dL) 133 H Total Creatine Kinase Triglycerides Cholesterol LDL Cholesterol, Calc HDL Cholesterol - Diagnostic Findings Chest x-ray: image reviewed Assessment and Plan Plan: Impression: #1 Acute hypoxic respiratory failure, multifactorial in a patient with evidence of acute exacerbation of systolic congestive heart failure, acute exacerbation of chronic obstructive pulmonary disease, suspect exacerbation of interstitial lung disease. #2 History of chronic tobacco dependence. #3 Acute on chronic hypoxic respiratory failure utilizes home oxygen. #4 Ischemic cardiomyopathy status post AICD placement. #5 Coronary artery disease with previous stent placements. #6 Hypertension. #7 Hyperlipidemia. #8 Obesity. Plan: The patient was seen and evaluated by Dr. Montelongo. His chest x-ray and previous x-rays were reviewed. He does feel there is some component of interstitial lung disease with acute congestive heart failure. The patient is educated regarding the importance of medication compliance especially in regards to his diuretics. We will continue with bronchodilators and IV Solu-Medrol in regards to his COPD, we'll add Pulmicort inhalations twice a day. Cardiology is on the case as well and they are planning the subcutaneous ICD repositioning back into its lateral sub-fascial pocket. The patient will be followed by Dr. Cornell throughout the rest of his stay. Time with Patient: Greater than 30
[2016-12-27 17:09] LABS: Glucose,Whole Blood 150 mg/dL (75-99)
[2016-12-27] MEDS: BUDESONIDE 1 MG/2 ML NEBU INHALATION SCH (19:43)
[2016-12-27 21:02] LABS: Glucose,Whole Blood 205 mg/dL (75-99)
[2016-12-28] MEDS: LACTATED RINGERS 1,000 ML IV SCH ×2 (00:22→20:23)
[2016-12-28] MEDS: methylPREDNISolone SOD SUCCI 40 MG/ML 1 ML VIAL IV SCH ×4 (00:23→23:34)
[2016-12-28] MEDS: SOTALOL 80 MG TAB PO SCH ×2 (04:20→12:46)
[2016-12-28] MEDS: LISINOPRIL 2.5 MG TAB PO SCH (04:20)
[2016-12-28] MEDS: CLOPIDOGREL 75 MG TAB PO SCH (04:20)
[2016-12-28 05:35] LABS: Glucose,Whole Blood 124 mg/dL (75-99)
[2016-12-28] MEDS: INSULIN LISPRO (humaLOG) 300 UNIT/3 ML VIAL SQ SCH ×4 (05:52→21:29)
[2016-12-28] MEDS: BUDESONIDE 1 MG/2 ML NEBU INHALATION SCH ×2 (08:44→20:42)
[2016-12-28] MEDS: IPRATROPIUM-ALBUTEROL 3 ML NEB INHALATION SCH ×4 (08:44→20:42)
[2016-12-28] MEDS: CARBAMIDE PEROXIDE 6.5% DROPS 15 ML BTL LEFT EAR SCH ×2 (09:25→20:15)
[2016-12-28] MEDS: ENOXAPARIN 40 MG/0.4 ML SYRINGE SQ SCH (09:26)
--- NOTE | 2016-12-28 10:25 | PN ---
SUBJECTIVE: A 76-year-old white male who I discussed with him at length today considering ICD repositioning to the lateral fascial wall versus the anterior chest. Patient is worried about general anesthesia as well as possibly doing an open abdominal procedure ( ). Pulmonary consult is obtained whose diagnosis consistent with CHF, COPD, interstitial lung disease, nicotine addiction, ischemic cardiomyopathy, status post AICD placement, coronary artery disease with stent, hypertension, dyslipidemia, obesity. Continue to recommend Solu-Medrol, bronchodilators and diuretics and Pulmicort, AICD. Continue with current treatment. MTDD
[2016-12-28] MEDS: CHOLESTYRAMINE (WITH SUGAR) 4 GM PACKET PO SCH ×2 (10:27→17:32)
[2016-12-28] MEDS: SODIUM CHLORIDE 0.9% 1,000 ML IV SCH (10:27)
--- NOTE | 2016-12-28 11:54 | P.PN ---
Subjective Principal diagnosis: AICD discharge This is a 76-year-old gentleman with known history of coronary artery disease, ischemic cardiomyopathy with prior AICD, hypertension, hyperlipidemia, nicotine dependence, COPD, who was admitted to the hospital with an inappropriate ICD shock on account of displacement of the subcutaneous ICD from its lateral location on the chest to a more medial location. Patient was seen in consultation by Dr. Arango today and his recommendation was to reposition the ICD back to its lateral subfascial pocket. Patient wishes to speak further about this with his family before making a decision. Blood pressure today is stable 100/60, heart rate in the 70s, 92% on 3 L of oxygen. 12/28/2016 Seen and examined this morning, I had a further discussion with him regarding the repositioning of his AICD, patient does not wish to have the procedure done at this time. Blood pressure 113/70 heart rate in the 60s. 94% on 3 L of oxygen. Overall feels well today, no complaints. Objective - Vital Signs Vital signs: Vital Signs Temp 97.0 F L 12/28/16 08:00 Pulse 68 12/28/16 09:08 Resp 20 12/28/16 04:00 BP 113/75 12/28/16 08:00 Pulse Ox 94 L 12/28/16 08:45 Intake & Output 12/27/16 12/28/16 12/28/16 18:59 06:59 18:59 Intake Total 960 Output Total 600 200 Balance 360 -200 Weight 124.8 kg Intake: Oral 960 Output: Urine 600 200 Other: # Voids 400 2 # Bowel Movements 1 3 3 - Exam PHYSICAL EXAMINATION: HEENT: Head is atraumatic, normocephalic. Pupils equal, round. Neck is supple. There is no elevated jugular venous pressure. HEART EXAMINATION: Heart S1, S2 normal. No murmur or gallop heard. CHEST EXAMINATION: Decreased air exchange with fine wheezes throughout ABDOMEN: Soft, ,nontender. Bowel sounds are heard. No organomegaly noted. EXTREMITIES: 2+ peripheral pulses with evidence of peripheral edema and no calf tenderness noted. NEUROLOGIC [patient is awake, alert and oriented -3.] . - Labs CBC & Chem 7: 12/25/16 13:45 12/25/16 13:45 Labs: Abnormal Lab Results - Last 24 Hours (Table) 12/27/16 12/27/1617 Range/Units 11:54 16:47 21:00 POC Glucose (mg/dL) 133 H 150 H 205 H (75-99) mg/dL 12/28/16 Range/Units 05:34 POC Glucose (mg/dL) 124 H (75-99) mg/dL Assessment and Plan (1) HTN (hypertension) Status: Acute (2) Hyperlipemia Status: Acute (3) Defibrillator discharge Status: Acute (4) COPD (chronic obstructive pulmonary disease) Status: Acute (5) Ischemic cardiomyopathy Status: Acute Plan: Patient was admitted with inappropriate AICD shock on account of displacement of the subcutaneous ICD from its lateral location on the chest to a more medial location. He was advised by Dr. Arango to undergo repositioning of the ICD back to its lateral subfascial pocket. After a lengthy discussion with the patient, he refuses to undergo repositioning of the AICD. The risks of recurrent AICD discharge were explained to the patient in detail. DNP note has been reviewed, I agree with a documented findings and plan of care. Patient was seen and examined.
[2016-12-28 12:00] LABS: Glucose,Whole Blood 165 mg/dL (75-99)
[2016-12-28] MEDS: NAPROXEN 250 MG TAB PO SCH (12:46)
[2016-12-28] MEDS: LORATADINE 10 MG TAB PO SCH (12:46)
[2016-12-28] MEDS: ASPIRIN 81 MG CHEW PO SCH (12:46)
[2016-12-28] MEDS: MULTIVITAMINS, THERA 1 EACH TAB PO SCH (12:46)
--- NOTE | 2016-12-28 12:52 | P.PN ---
Subjective Principal diagnosis: Patient seen and evaluated and examined during rounds he gets short of breath on minimal activity and exertion remains on breathing treatments as intermittent cough but denies any sputum production This is a very pleasant 76-year-old gentleman who follows with Dr. Alan Otero as his primary care physician. He has history of coronary artery disease, severe ischemic cardiomyopathy status post AICD placement, chronic obstructive pulmonary disease, chronic hypoxemia with oxygen at home, hypertension, as the arthritis, chronic sinusitis. Patient presented here on after stating his defibrillator fired last week. He has been seen and evaluated by Dr. Friedman. The firing was inappropriate. He may need the device repositioned. He does have significant ongoing shortness of breath with minimal exertion. He has orthopnea and paroxysmal nocturnal dyspnea. We're consulted for Dr. Cornell who is out of town. He is seen on the selective care unit resting fairly comfortable in bed. He is still quite dyspneic on minimal exertion. His chest x-ray reveals evidence of congestive heart failure with some suspected underlying interstitial lung disease as well. He has significant clubbing of the fingers. Has has significant lower extremity peripheral edema. He also states he does not take his Lasix or diuretics at home as he does not want to "live in the bathroom". He denies any fever chills or night sweats. His cough is occasionally productive which is his been white but he feels is sinus drainage. Afebrile. No leukocytosis. ProBNP 474 and troponins negative. Objective - Vital Signs Vital signs: Vital Signs Temp 97.0 F L 12/28/16 08:00 Pulse 68 12/28/16 09:08 Resp 20 12/28/16 04:00 BP 113/75 12/28/16 08:00 Pulse Ox 94 L 12/28/16 08:45 Intake & Output 12/27/16 12/28/16 12/28/16 18:59 06:59 18:59 Intake Total 960 Output Total 600 200 Balance 360 -200 Weight 124.8 kg Intake: Oral 960 Output: Urine 600 200 Other: # Voids 400 2 # Bowel Movements 1 3 3 GENERAL EXAM: Obese. Alert, fairly comfortable in no apparent distress. HEAD: Normocephalic. EYES: Normal reaction of pupils, equal size. NOSE: Clear with pink turbinates. THROAT: No erythema or exudates. NECK: No masses, no JVD. CHEST: No chest wall deformity. LUNGS: Equal air entry with us in the posterior bases. Diminished. CVS: S1 and S2 normal with an audible murmur, regular rhythm. ABDOMEN: No hepatosplenomegaly, normal bowel sounds, no guarding or rigidity. Extremities: There is 1-2+ lower extremity peripheral edema. There is positive clubbing of the digits. No cyanosis. Peripheral pulses are intact. - Labs CBC & Chem 7: 12/25/16 13:45 12/25/16 13:45 Labs: Abnormal Lab Results - Last 24 Hours (Table) 12/27/16 12/27/16 12/28/16 Range/Units 16:47 21:00 05:34 POC Glucose (mg/dL) 150 H 205 H 124 H (75-99) mg/dL 12/28/16 Range/Units 11:38 POC Glucose (mg/dL) 165 H (75-99) mg/dL Assessment and Plan Plan: Impression: #1 Acute hypoxic respiratory failure, multifactorial in a patient with evidence of acute exacerbation of systolic congestive heart failure, acute exacerbation of chronic obstructive pulmonary disease, suspect exacerbation of interstitial lung disease. #2 History of chronic tobacco dependence. #3 Acute on chronic hypoxic respiratory failure utilizes home oxygen. #4 Ischemic cardiomyopathy status post AICD placement. #5 Coronary artery disease with previous stent placements. #6 Hypertension. #7 Hyperlipidemia. #8 Obesity. We'll plan to continue breathing treatments continue gentle diuresis care plan discussed with the patient as well as son present at the bedside at length or follow closely Time with Patient: Greater than 30
[2016-12-28 16:20] LABS: Glucose,Whole Blood 163 mg/dL (75-99)
[2016-12-28 21:16] LABS: Glucose,Whole Blood 178 mg/dL (75-99)
[2016-12-29] MEDS: CLOPIDOGREL 75 MG TAB PO SCH (03:05)
[2016-12-29] MEDS: SOTALOL 80 MG TAB PO SCH ×2 (03:05→12:45)
[2016-12-29] MEDS: LISINOPRIL 2.5 MG TAB PO SCH (03:05)
[2016-12-29 05:59] LABS: Glucose,Whole Blood 138 mg/dL (75-99)
[2016-12-29] MEDS: INSULIN LISPRO (humaLOG) 300 UNIT/3 ML VIAL SQ SCH ×4 (06:29→21:48)
[2016-12-29] MEDS: IPRATROPIUM-ALBUTEROL 3 ML NEB INHALATION SCH ×4 (08:00→20:15)
[2016-12-29] MEDS: BUDESONIDE 1 MG/2 ML NEBU INHALATION SCH ×2 (08:00→20:15)
[2016-12-29] MEDS: CARBAMIDE PEROXIDE 6.5% DROPS 15 ML BTL LEFT EAR SCH ×2 (08:31→19:30)
[2016-12-29] MEDS: CHOLESTYRAMINE (WITH SUGAR) 4 GM PACKET PO SCH ×3 (08:31→19:38)
[2016-12-29] MEDS: methylPREDNISolone SOD SUCCI 40 MG/ML 1 ML VIAL IV SCH ×2 (08:31→19:37)
[2016-12-29] MEDS: ENOXAPARIN 40 MG/0.4 ML SYRINGE SQ SCH (08:32)
--- NOTE | 2016-12-29 09:23 | P.PN ---
Subjective Principal diagnosis: This 76-year-old patient seen this morning on rounds with Dr. Otero. Patient was admitted on December 25 due to defibrillator firing at home. ICD shock was thought to be inappropriate due to displacement from its lateral location to more medial location. It was recommended that patient undergo repositioning of the ICD with patient is refusing at this time. Patient states "why would I do something if they don't even know what caused it and put me at more risk". Patient appears slightly short of breath during conversation and states he just had a breathing treatment. Patient is currently on 3 L cannula and sating 89%. Pulmonology on consult. Patient states he has been having some loose stools. Patient remains afebrile with a temperature of 97.1 this morning. Blood pressure is stable at 117/77. Last completed blood work is from 12/25/2016 and shows a white count of 7.0, hemoglobin of 16.1, a potassium of 4.5, BUN of 20 and creatinine of 0.7. Patient states his appetite is good. Patient finished his breakfast this morning and also had a box of bread sticks that his family brought in yesterday. Patient denies nausea vomiting or chest pain. Patient denies any additional complaints. Objective - Vital Signs Vital signs: Vital Signs Temp 97.1 F L 12/29/16 08:00 Pulse 72 12/29/16 08:18 Resp 18 12/29/16 04:00 BP 117/77 12/29/16 08:00 Pulse Ox 89 L 12/29/16 08:00 Intake & Output 12/28/16 12/29/16 12/29/16 18:59 06:59 18:59 Intake Total 600 180 Output Total 150 Balance 600 30 Weight 125.3 kg Intake: Oral 600 180 Output: Urine 150 Other: Voiding Method Urinal # Voids 2 1 # Bowel Movements 3 2 - Exam GENERAL: Alert and oriented. Appears slightly short of breath with conversation. Pleasant. RESPIRATORY: Patient with diminished lung sounds and fine wheezing throughout. Decreased air exchange. CARDIOVASCULAR: S1 and S2 noted. No murmurs auscultated. No JVD noted. EXTREMITIES: Patient with trace peripheral edema. Palpable pedal pulses +2. ABDOMEN: Obese. Abdomen soft and round. Normal active bowel sounds auscultated 4 quadrants. No pain or tenderness noted upon palpation. - Labs CBC & Chem 7: 12/25/16 13:45 12/25/16 13:45 Labs: Abnormal Lab Results - Last 24 Hours (Table) 12/28/16 12/28/16 12/28/16 Range/Units 11:38 16:18 21:15 POC Glucose (mg/dL) 165 H 163 H 178 H (75-99) mg/dL 12/29/16 Range/Units 05:58 POC Glucose (mg/dL) 138 H (75-99) mg/dL Assessment and Plan (1) Defibrillator discharge Narrative/Plan: Patient refusing reposition of ICD at this time Status: Acute (2) COPD (chronic obstructive pulmonary disease) Narrative/Plan: End-stage, present on admission, acute exacerbation. Status: Acute (3) Ischemic cardiomyopathy Narrative/Plan: Patient with history of multiple myocardial infarctions with stenting Status: Acute (4) Dyspnea Narrative/Plan: Present on admission. Due to end-stage COPD and coronary artery disease Status: Acute (5) Diarrhea Narrative/Plan: Unknown etiology at this time. Will send stool sample for culture. Status: Acute (6) Heart failure, systolic, chronic Narrative/Plan: No evidence of acute exacerbation Status: Acute Plan: Patient refusing repositioning of ICD at this time continue to monitor for arrhythmias and possibility of defibrillator discharges. Pulmonology on consult and appreciate any recommendations. At this time continue Pulmicort, Ipratropium-Albuterol, and Solu-Medrol 40 mg IV every 8 hours Check stool for C. diff and sent for culture. Discussed importance of compliance of home medications with patient. Monitor vital signs and treat as needed.
--- NOTE | 2016-12-29 10:56 | P.PN ---
Subjective Principal diagnosis: AICD discharge This is a 76-year-old gentleman with known history of coronary artery disease, ischemic cardiomyopathy with prior AICD, hypertension, hyperlipidemia, nicotine dependence, COPD, who was admitted to the hospital with an inappropriate ICD shock on account of displacement of the subcutaneous ICD from its lateral location on the chest to a more medial location. Patient was seen in consultation by Dr. Arango today and his recommendation was to reposition the ICD back to its lateral subfascial pocket. Patient wishes to speak further about this with his family before making a decision. Blood pressure today is stable 100/60, heart rate in the 70s, 92% on 3 L of oxygen. 12/28/2016 Seen and examined this morning, I had a further discussion with him regarding the repositioning of his AICD, patient does not wish to have the procedure done at this time. Blood pressure 113/70 heart rate in the 60s. 94% on 3 L of oxygen. Overall feels well today, no complaints. 12/29/2016. Patient seen and examined this morning, overall stable. He may be able to be discharged from cardiology's perspective and follow-up in the office post discharge. He continues to refuse having his AICD reposition at this time. Objective - Vital Signs Vital signs: Vital Signs Temp 97.1 F L 12/29/16 08:00 Pulse 72 12/29/16 08:18 Resp 18 12/29/16 04:00 BP 117/77 12/29/16 08:00 Pulse Ox 89 L 12/29/16 08:00 Intake & Output 12/28/16 12/29/16 12/29/16 18:59 06:59 18:59 Intake Total 600 180 337 Output Total 150 Balance 600 30 337 Weight 125.3 kg Intake: Oral 600 180 337 Output: Urine 150 Other: Voiding Method Urinal # Voids 2 1 # Bowel Movements 3 2 6 - Exam PHYSICAL EXAMINATION: HEENT: Head is atraumatic, normocephalic. Pupils equal, round. Neck is supple. There is no elevated jugular venous pressure. HEART EXAMINATION: Heart S1, S2 normal. No murmur or gallop heard. CHEST EXAMINATION: Decreased air exchange with fine wheezes throughout ABDOMEN: Soft, ,nontender. Bowel sounds are heard. No organomegaly noted. EXTREMITIES: 2+ peripheral pulses with evidence of peripheral edema and no calf tenderness noted. NEUROLOGIC [patient is awake, alert and oriented -3.] . - Labs CBC & Chem 7: 12/25/16 13:45 12/25/16 13:45 Labs: Abnormal Lab Results - Last 24 Hours (Table) 12/28/16 12/28/16 12/28/16 Range/Units 11:38 16:18 21:15 POC Glucose (mg/dL) 165 H 163 H 178 H (75-99) mg/dL 12/29/16 Range/Units 05:58 POC Glucose (mg/dL) 138 H (75-99) mg/dL Assessment and Plan (1) HTN (hypertension) Status: Acute (2) Hyperlipemia Status: Acute (3) Defibrillator discharge Status: Acute (4) COPD (chronic obstructive pulmonary disease) Status: Acute (5) Ischemic cardiomyopathy Status: Acute Plan: Patient was admitted with inappropriate AICD shock on account of displacement of the subcutaneous ICD from its lateral location on the chest to a more medial location. He was advised by Dr. Arango to undergo repositioning of the ICD back to its lateral subfascial pocket. After a lengthy discussion with the patient, he refuses to undergo repositioning of the AICD. The risks of recurrent AICD discharge were explained to the patient in detail. Patient may be able to be discharged from cardiology's perspective. We will make him a follow-up appointment in the office post discharge. DNP note has been reviewed, I agree with a documented findings and plan of care. Patient was seen and examined.
[2016-12-29 11:42] LABS: Glucose,Whole Blood 133 mg/dL (75-99)
--- NOTE | 2016-12-29 11:51 | P.PN ---
Subjective Interval history: the patient is being seen examined and evaluated on the selective care unit. Patient was originally admitted on 12/25/2016 4 a defibrillator discharge. It was found by cardiology that the patient's AICD had an inappropriate discharge and was noted to be displaced in the chest. Cardiology did recommend the patient undergo a repositioning of the AICD the however the patient has refused this recommendation. Overall the patient feels well today. Patient is using supplemental oxygen to 3 LPM, via nasal cannula. has had some shortness of breath on and off with exertion. Denies any cough or congestion at this time. Patient has been noted to have some diarrhea as well, stool will be sent for C. diff and cultures. Objective - Vital Signs Vital signs: Vital Signs Temp 97.1 F L 12/29/16 08:00 Pulse 72 12/29/16 08:18 Resp 18 12/29/16 04:00 BP 117/77 12/29/16 08:00 Pulse Ox 89 L 12/29/16 08:00 Intake & Output 12/28/16 12/29/16 12/29/16 18:59 06:59 18:59 Intake Total 600 180 337 Output Total 150 Balance 600 30 337 Weight 125.3 kg Intake: Oral 600 180 337 Output: Urine 150 Other: Voiding Method Urinal # Voids 2 1 # Bowel Movements 3 2 6 - Exam GENERAL EXAM: Alert, active, comfortable in no apparent distress. HEAD: Normocephalic. EYES: Normal reaction of pupils, equal size. NOSE: Clear with pink turbinates. THROAT: No erythema or exudates. NECK: No masses, no JVD. CHEST: No chest wall deformity. LUNGS: Lungs noted to be coarse throughout with some expiratory wheezing. Bases diminished. CVS: S1 and S2 normal with no audible mumurs, regular rhythm. ABDOMEN: No hepatosplenomegaly, normal bowel sounds, no guarding or rigidity. EXTREMITIES: No edema noted, pedal pulses palpable. SKIN: No rashes CENTRAL NERVOUS SYSTEM: No focal deficits, tone is normal in all 4 extremities. - Labs CBC & Chem 7: 12/25/16 13:45 12/25/16 13:45 Labs: Abnormal Lab Results - Last 24 Hours (Table) 12/28/16 12/28/16 12/28/16 Range/Units 11:38 16:18 21:15 POC Glucose (mg/dL) 165 H 163 H 178 H (75-99) mg/dL 12/29/16 Range/Units 05:58 POC Glucose (mg/dL) 138 H (75-99) mg/dL Assessment and Plan Plan: Assessment Defibrillator discharge Severe COPD Ischemic cardiomyopathy Dyspnea Diarrhea Congestive heart failure Plan Patient has refused to undergo repositioning of his AICD at this time. Stools will be sent for culture and C. diff. Patient is known to be noncompliant with medications at home importance of treatment compliance has been discussed with the patient. Medications have been reviewed and will be continued as ordered. Continue with pulmonary hygiene, coughing and deep breathing exercises, and supportive care. Supplemental oxygen to maintain oxygen saturations of 92% or better. Continue nebulizer treatments. GI and DVT prophylaxis. We will continue to monitor labs/results and adjust treatment as necessary. Further recommendations pending. I performed an examination of the patient and discussed their management with the nurse practitioner. I have reviewed the nurse practitioner's note and agree with the documented findings and plan of care.
[2016-12-29] MEDS: MULTIVITAMINS, THERA 1 EACH TAB PO SCH (12:44)
[2016-12-29] MEDS: ASPIRIN 81 MG CHEW PO SCH (12:44)
[2016-12-29] MEDS: NAPROXEN 250 MG TAB PO SCH (12:44)
[2016-12-29] MEDS: LORATADINE 10 MG TAB PO SCH (12:44)
[2016-12-29] MEDS: SODIUM CHLORIDE 0.9% 1,000 ML IV SCH (12:45)
[2016-12-29 16:59] LABS: Glucose,Whole Blood 114 mg/dL (75-99)
[2016-12-29 21:17] LABS: Glucose,Whole Blood 130 mg/dL (75-99)
[2016-12-29] MEDS: LACTATED RINGERS 1,000 ML IV SCH (23:28)
[2016-12-30] MEDS: methylPREDNISolone SOD SUCCI 40 MG/ML 1 ML VIAL IV SCH ×3 (01:59→17:08)
[2016-12-30] MEDS: CLOPIDOGREL 75 MG TAB PO SCH (02:55)
[2016-12-30] MEDS: SOTALOL 80 MG TAB PO SCH ×2 (02:55→12:10)
[2016-12-30] MEDS: LISINOPRIL 2.5 MG TAB PO SCH (02:55)
[2016-12-30 05:57] LABS: Glucose,Whole Blood 132 mg/dL (75-99)
[2016-12-30] MEDS: INSULIN LISPRO (humaLOG) 300 UNIT/3 ML VIAL SQ SCH ×4 (06:31→22:41)
[2016-12-30] MEDS: CHOLESTYRAMINE (WITH SUGAR) 4 GM PACKET PO SCH ×2 (07:55→19:11)
[2016-12-30] MEDS: ENOXAPARIN 40 MG/0.4 ML SYRINGE SQ SCH (07:56)
[2016-12-30] MEDS: CARBAMIDE PEROXIDE 6.5% DROPS 15 ML BTL LEFT EAR SCH ×2 (08:05→21:35)
[2016-12-30] MEDS: BUDESONIDE 1 MG/2 ML NEBU INHALATION SCH ×2 (09:39→20:49)
[2016-12-30] MEDS: IPRATROPIUM-ALBUTEROL 3 ML NEB INHALATION SCH ×4 (09:39→20:49)
--- NOTE | 2016-12-30 10:24 | P.PN ---
Subjective Principal diagnosis: This 76-year-old patient seen this morning on rounds. Patient was admitted on December 25 due to defibrillator firing at home. ICD shock was thought to be inappropriate due to displacement from its lateral location to more medial location. It was recommended that patient undergo repositioning of the ICD with patient is refusing at this time. Patient's breathing appears less labored today. Patient states he is still taking breathing treatments every 4 hours. Patient continues to have loose stools but states they have improved. Patient states he had a small amount of blood on his toilet paper but attributes it to his hemorrhoids. No signs of active bleeding. Patient states his appetite is good and is currently eating breakfast upon examination. Patient denies nausea vomiting or chest pain. Patient denies any additional complaints. Patient states at this time he does not want to go to ECF following discharge as recommended. Hospital course: This is a 76-year-old male who was admitted on 12/25/2016 due to his defibrillator discharging at home. ICD shock was thought to be inappropriate due to displacement from its lateral location to more medial location. It was recommended for patient to undergo repositioning of ICD but patient refused procedure. Patient has a history of COPD and was treated for an acute exacerbation with IV steroids which have since been transitioned to oral. Patient also received scheduled breathing treatments. Patient also has a history of coronary artery disease with stenting and multiple myocardial infarctions. Patient refuses to take his Lasix at home because he does not want to use the restroom multiple times. Medication compliance was discussed with patient. During hospitalization patient developed loose stools. C. diff negative. It was recommended that patient be discharged to an ECF but patient is refusing at this time. Physical therapy was consulted to determine if it is safe for patient to be discharged home alone. Objective - Vital Signs Vital signs: Vital Signs Temp 97 F L 12/30/16 03:21 Pulse 68 12/30/16 09:57 Resp 22 12/30/16 07:48 BP 95/63 12/30/16 07:48 Pulse Ox 94 L 12/30/16 07:48 Intake & Output 12/29/16 12/30/16 12/30/16 18:59 06:59 18:59 Intake Total 817 140 Output Total 240 200 Balance 817 -100 -200 Weight 124.5 kg Intake: Intake, IV Titration 0 140 Amount Lactated Ringers 1,000 ml 140 @ 20 mls/hr IV .Q24H [facility] Rx#:[id number] Sodium Chloride 0.9% 1, 0 000 ml @ 20 mls/hr IV . Q24H [facility] Rx#:[id number] Oral 817 Output: Urine 240 200 Other: # Voids 2 # Bowel Movements 6 2 1 - Exam GENERAL: Alert and oriented. Appears slightly short of breath with conversation. Pleasant. RESPIRATORY: Patient with diminished lung sounds and fine wheezing throughout. CARDIOVASCULAR: S1 and S2 noted. No murmurs auscultated. No JVD noted. EXTREMITIES: Patient with trace peripheral edema. Palpable pedal pulses +2. ABDOMEN: Obese. Abdomen soft and round. Normal active bowel sounds auscultated 4 quadrants. No pain or tenderness noted upon palpation. - Labs CBC & Chem 7: 12/30/16 10:42 12/30/16 10:41 Labs: Abnormal Lab Results - Last 24 Hours (Table) 12/29/16 12/29/16 12/29/16 Range/Units 11:32 16:56 21:14 POC Glucose (mg/dL) 133 H 114 H 130 H (75-99) mg/dL 12/30/16 Range/Units 05:55 POC Glucose (mg/dL) 132 H (75-99) mg/dL Microbiology - Last 24 Hours (Table) 12/29/16 11:04 Stool Culture - Preliminary Stool Assessment and Plan (1) Defibrillator discharge Narrative/Plan: Patient refusing reposition of ICD at this time Status: Acute (2) COPD (chronic obstructive pulmonary disease) Narrative/Plan: End-stage, present on admission, acute exacerbation. Status: Acute (3) Ischemic cardiomyopathy Narrative/Plan: Patient with history of multiple myocardial infarctions with stenting Status: Acute (4) Dyspnea Narrative/Plan: Present on admission. Due to end-stage COPD and coronary artery disease Status: Acute (5) Diarrhea Narrative/Plan: Unknown etiology at this time. C Diff negative. Awaiting stool culture results. Status: Acute (6) Heart failure, systolic, chronic Narrative/Plan: No evidence of acute exacerbation Status: Chronic Plan: Transfer patient to general medical floor with telemetry. Patient refusing repositioning of ICD at this time. continue to monitor for arrhythmias and possibility of defibrillator discharges. Pulmonology on consult and appreciate any recommendations. Steroids changed to oral. C Diff negative. Awaiting results of stool culture. Discussed importance of compliance of home medications with patient. Monitor labs. Monitor vital signs and address as needed. GI/DVT prophylaxis. Added pepcid 20mg bid. Physical therapy to evaluate patient today to determine if patient is safe to be discharged home, as patient is refusing ECF placement.
[2016-12-30 11:32] LABS: Basophils % (A) 0 %; CH 30.5; CHCM 30.7; Eosinophils % (A) 0 %; HCT 49.4 % (39.0-53.0); HDW 2.47; HGB 14.7 gm/dL (13.0-17.5); Hypochromasia Slight; Luc # (Auto) 0.09; Luc % (Auto) 1; Lymphocytes # (A) 0.6 k/uL (1.0-4.8); Lymphocytes % (A) 8 %; MCH 29.7 pg (25.0-35.0); MCHC 29.8 g/dL (31.0-37.0); MCV 99.8 fL (80.0-100.0); Macrocytosis Slight; Mean Platelet Volume 7.9; Monocytes # (A) 0.4 k/uL (0-1.0); Monocytes % (A) 6 %; Neutrophils # (A) 5.8 k/uL (1.3-7.7); Neutrophils % (A) 85 %; RBC 4.95 m/uL (4.30-5.90); RDW 15.2 % (11.5-15.5); WBC 6.8 k/uL (3.8-10.6); WBC (Perox) 6.59
[2016-12-30 11:32] LABS: ALT 28 U/L (21-72); AST 28 U/L (17-59); Alkaline Phosphatase 85 U/L (38-126); Anion Gap 7 mmol/L; Blood Urea Nitrogen 32 mg/dL (9-20); Calcium 8.9 mg/dL (8.4-10.2); Carbon Dioxide 29 mmol/L (22-30); Chloride 106 mmol/L (98-107); Glucose 143 mg/dL (74-99); Non-African American GFR(MDRD) >60 (>60 ml/min/1.73 sqM); Potassium 4.2 mmol/L (3.5-5.1); Sodium 142 mmol/L (137-145); Total Bilirubin 0.5 mg/dL (0.2-1.3); Total Protein 6.2 g/dL (6.3-8.2)
[2016-12-30 11:43] LABS: Glucose,Whole Blood 128 mg/dL (75-99)
--- NOTE | 2016-12-30 11:45 | P.PN ---
Subjective Interval history: 12/29/16- the patient is being seen examined and evaluated on the selective care unit. Patient was originally admitted on 12/25/2016 4 a defibrillator discharge. It was found by cardiology that the patient's AICD had an inappropriate discharge and was noted to be displaced in the chest. Cardiology did recommend the patient undergo a repositioning of the AICD the however the patient has refused this recommendation. Overall the patient feels well today. Patient is using supplemental oxygen to 3 LPM, via nasal cannula. has had some shortness of breath on and off with exertion. Denies any cough or congestion at this time. Patient has been noted to have some diarrhea as well, stool will be sent for C. diff and cultures. 12/30/16- patient being seen in evaluated and examined today on the selective care unit during rounds. Patient is currently on 2 L of supplemental oxygen which she does wear home. He still has shortness of breath with exertion, more than baseline. Patient's loose stools have slowed down, his C. diff was negative. Continues to have a good appetite. He has been afebrile. No overnight events. No further complaints. Patient has been recommended for rehabilitation upon discharge. Objective - Vital Signs Vital signs: Vital Signs Temp 97.1 F L 12/30/16 11:30 Pulse 74 12/30/16 11:30 Resp 20 12/30/16 11:30 BP 108/56 12/30/16 11:30 Pulse Ox 90 L 12/30/16 11:30 Intake & Output 12/29/16 12/30/16 12/30/16 18:59 06:59 18:59 Intake Total 817 140 200 Output Total 240 200 Balance 817 -100 0 Weight 124.5 kg Intake: Intake, IV Titration 0 140 Amount Lactated Ringers 1,000 ml 140 @ 20 mls/hr IV .Q24H [facility] Rx#:[id number] Sodium Chloride 0.9% 1, 0 000 ml @ 20 mls/hr IV . Q24H [facility] Rx#:[id number] Oral 817 200 Output: Urine 240 200 Other: # Voids 2 # Bowel Movements 6 2 1 - Exam GENERAL EXAM: Alert, active, comfortable in no apparent distress. HEAD: Normocephalic. EYES: Normal reaction of pupils, equal size. NOSE: Clear with pink turbinates. THROAT: No erythema or exudates. NECK: No masses, no JVD. CHEST: No chest wall deformity. LUNGS: Lungs noted to be coarse throughout with some expiratory wheezing. Bases diminished. CVS: S1 and S2 normal with no audible mumurs, regular rhythm. ABDOMEN: No hepatosplenomegaly, normal bowel sounds, no guarding or rigidity. EXTREMITIES: No edema noted, pedal pulses palpable. SKIN: No rashes CENTRAL NERVOUS SYSTEM: No focal deficits, tone is normal in all 4 extremities. - Labs CBC & Chem 7: 12/30/16 10:42 12/25/16 13:45 Labs: Abnormal Lab Results - Last 24 Hours (Table) 12/29/16 12/29/16 12/29/16 Range/Units 11:32 16:56 21:14 MCHC (31.0-37.0) g/dL Lymphocytes # (1.0-4.8) k/uL POC Glucose (mg/dL) 133 H 114 H 130 H (75-99) mg/dL 12/30/16 12/30/16 Range/Units 05:55 10:42 MCHC 29.8 L (31.0-37.0) g/dL Lymphocytes # 0.6 L (1.0-4.8) k/uL POC Glucose (mg/dL) 132 H (75-99) mg/dL Microbiology - Last 24 Hours (Table) 12/29/16 11:04 Stool Culture - Preliminary Stool Assessment and Plan Plan: Assessment Defibrillator discharge Severe COPD Ischemic cardiomyopathy Dyspnea Diarrhea Congestive heart failure Plan Patient has refused to undergo repositioning of his AICD at this time. Stools were negative for C. diff. Patient is known to be noncompliant with medications at home importance of treatment compliance has been discussed with the patient. Steroids have been switched to oral. Medications have been reviewed and will be continued as ordered. Continue with pulmonary hygiene, coughing and deep breathing exercises, and supportive care. Supplemental oxygen to maintain oxygen saturations of 92% or better. Continue nebulizer treatments. GI and DVT prophylaxis. We will continue to monitor labs/results and adjust treatment as necessary. Further recommendations pending. I performed an examination of the patient and discussed their management with the nurse practitioner. I have reviewed the nurse practitioner's note and agree with the documented findings and plan of care.
[2016-12-30] MEDS: MULTIVITAMINS, THERA 1 EACH TAB PO SCH (12:09)
[2016-12-30] MEDS: ASPIRIN 81 MG CHEW PO SCH (12:09)
[2016-12-30] MEDS: NAPROXEN 250 MG TAB PO SCH (12:09)
[2016-12-30] MEDS: LORATADINE 10 MG TAB PO SCH (12:09)
[2016-12-30 16:50] LABS: Glucose,Whole Blood 122 mg/dL (75-99)
[2016-12-30] MEDS: SODIUM CHLORIDE 0.9% 1,000 ML IV SCH (19:41)
[2016-12-30 21:16] LABS: Glucose,Whole Blood 199 mg/dL (75-99)
[2016-12-30] MEDS: FAMOTIDINE 20 MG TAB PO SCH (21:36)
[2016-12-30] MEDS: LACTATED RINGERS 1,000 ML IV SCH (22:46)
[2016-12-31] MEDS: SOTALOL 80 MG TAB PO SCH ×2 (05:53→12:56)
[2016-12-31] MEDS: CLOPIDOGREL 75 MG TAB PO SCH (05:53)
[2016-12-31] MEDS: LISINOPRIL 2.5 MG TAB PO SCH (05:53)
[2016-12-31 06:32] LABS: Glucose,Whole Blood 113 mg/dL (75-99)
[2016-12-31] MEDS: INSULIN LISPRO (humaLOG) 300 UNIT/3 ML VIAL SQ SCH ×4 (06:53→21:34)
[2016-12-31] MEDS: FAMOTIDINE 20 MG TAB PO SCH ×2 (08:41→21:33)
[2016-12-31] MEDS: predniSONE 20 MG TAB PO SCH (08:41)
[2016-12-31] MEDS: ENOXAPARIN 40 MG/0.4 ML SYRINGE SQ SCH (08:41)
[2016-12-31] MEDS: CARBAMIDE PEROXIDE 6.5% DROPS 15 ML BTL LEFT EAR SCH ×2 (08:44→21:34)
[2016-12-31] MEDS: IPRATROPIUM-ALBUTEROL 3 ML NEB INHALATION SCH ×4 (08:52→19:57)
[2016-12-31] MEDS: BUDESONIDE 1 MG/2 ML NEBU INHALATION SCH ×2 (08:52→19:57)
[2016-12-31 12:03] LABS: Glucose,Whole Blood 135 mg/dL (75-99)
[2016-12-31 12:07] VITALS: BMI 35.7
--- NOTE | 2016-12-31 12:22 | P.PN ---
Subjective Interval history: 12/29/16- the patient is being seen examined and evaluated on the selective care unit. Patient was originally admitted on 12/25/2016 4 a defibrillator discharge. It was found by cardiology that the patient's AICD had an inappropriate discharge and was noted to be displaced in the chest. Cardiology did recommend the patient undergo a repositioning of the AICD the however the patient has refused this recommendation. Overall the patient feels well today. Patient is using supplemental oxygen to 3 LPM, via nasal cannula. has had some shortness of breath on and off with exertion. Denies any cough or congestion at this time. Patient has been noted to have some diarrhea as well, stool will be sent for C. diff and cultures. 12/30/16- patient being seen in evaluated and examined today on the selective care unit during rounds. Patient is currently on 2 L of supplemental oxygen which she does wear home. He still has shortness of breath with exertion, more than baseline. Patient's loose stools have slowed down, his C. diff was negative. Continues to have a good appetite. He has been afebrile. No overnight events. No further complaints. Patient has been recommended for rehabilitation upon discharge. 12/31/16- patient is being seen examined and evaluated today on the fifth floor. Please see resting up in bed on 2 L of supplemental oxygen via nasal cannula. He states his shortness of breath has slightly improved and he feels it to his baseline. Patient continues to have loose stools however they have significantly slowed down in the last 24 hours. Patient was noted to have some bright red streaks in his stool, he is known to have history of hemorrhoids. However he is requesting Dr. Hutchins is consulted before discharge for evaluation. His C. diff was negative cultures negative so far. Continues to have a good appetite. Afebrile no overnight events. Discharge planning is in process for the patient to go to rehab facility. He has been switched over to oral steroids. Objective - Vital Signs Vital signs: Vital Signs Temp 97.2 F L 12/31/16 07:00 Pulse 72 12/31/16 09:09 Resp 18 12/31/16 07:00 BP 104/52 12/31/16 07:00 Pulse Ox 91 L 12/31/16 07:00 Intake & Output 12/30/16 12/31/16 12/31/16 18:59 06:59 18:59 Intake Total 658 60 Output Total 550 400 Balance 108 -340 Weight 126.3 kg 126.3 kg Intake: IV 60 Lactated Ringers 1,000 ml 60 @ 20 mls/hr IV .Q24H CAITLYN Rx#:[id number] Intake, IV Titration 160 Amount Lactated Ringers 1,000 ml 160 @ 20 mls/hr IV .Q24H CAITLYN Rx#:[id number] Oral 498 Output: Urine 550 400 Other: Voiding Method Urinal # Voids 1 # Bowel Movements 1 1 - Exam GENERAL EXAM: Alert, active, comfortable in no apparent distress. HEAD: Normocephalic. EYES: Normal reaction of pupils, equal size. NOSE: Clear with pink turbinates. THROAT: No erythema or exudates. NECK: No masses, no JVD. CHEST: No chest wall deformity. LUNGS: Lungs noted to be coarse throughout with some expiratory wheezing. Bases diminished. CVS: S1 and S2 normal with no audible mumurs, regular rhythm. ABDOMEN: No hepatosplenomegaly, normal bowel sounds, no guarding or rigidity. EXTREMITIES: No edema noted, pedal pulses palpable. SKIN: No rashes CENTRAL NERVOUS SYSTEM: No focal deficits, tone is normal in all 4 extremities. - Labs CBC & Chem 7: 12/30/16 10:42 12/30/16 10:41 Labs: Abnormal Lab Results - Last 24 Hours (Table) 12/30/16 12/30/16 12/31/16 Range/Units 16:48 21:13 06:29 POC Glucose (mg/dL) 122 H 199 H 113 H (75-99) mg/dL 12/31/16 Range/Units 11:57 POC Glucose (mg/dL) 135 H (75-99) mg/dL Assessment and Plan Plan: Assessment Defibrillator discharge Severe COPD Ischemic cardiomyopathy Dyspnea Diarrhea Congestive heart failure Plan Patient has continued to refuse to undergo repositioning of his AICD at this time. Stools were negative for C. diff. Patient is known to be noncompliant with medications at home importance of treatment compliance has been discussed with the patient. Steroids have been switched to oral. Medications have been reviewed and will be continued as ordered. Continue with pulmonary hygiene, coughing and deep breathing exercises, and supportive care. Supplemental oxygen to maintain oxygen saturations of 92% or better. Continue nebulizer treatments. GI and DVT prophylaxis. We will continue to monitor labs/results and adjust treatment as necessary. Further recommendations pending. I performed an examination of the patient and discussed their management with the nurse practitioner. I have reviewed the nurse practitioner's note and agree with the documented findings and plan of care.
[2016-12-31] MEDS: MULTIVITAMINS, THERA 1 EACH TAB PO SCH (12:53)
[2016-12-31] MEDS: CHOLESTYRAMINE (WITH SUGAR) 4 GM PACKET PO SCH ×2 (12:53→18:26)
[2016-12-31] MEDS: ASPIRIN 81 MG CHEW PO SCH (12:53)
[2016-12-31] MEDS: LORATADINE 10 MG TAB PO SCH (12:54)
[2016-12-31] MEDS: NAPROXEN 250 MG TAB PO SCH (12:54)
--- NOTE | 2016-12-31 14:26 | P.GSCN ---
History of Present Illness Consult date: 12/31/16 Reason for Consult: Episode of bright red rectal bleed History of present illness: 76-year-old gentleman who is being seen at surgical service at the request of the attending for an episode of having a small amount of blood noted on his toilet paper which the patient thought was from his hemorrhoids. is not certain when he had a colonoscopy done last. Patient states that he has had 2 colonoscopies in the past years ago is not certain of the date patient states he 's not had any recent episodes of bright red blood in the toilet bowl or in his stool has not noted any unintentional weight loss or change in bowel habits Given the above clinical presentation and chief complaint the attending has requested surgery eval patient patient is not having any active rectal bleeding inspection of the rectal anus shows no external hemorrhoids. Rectal exam not able to palpate any internal hemorrhoid did note small amount of bright red blood on the glove after the rectal exam Review of Systems I essentially unremarkable except as mentioned in the present illness Past Medical History Past Medical History: Asthma, Coronary Artery Disease (CAD), Chest Pain / Angina , COPD, Hypertension, Myocardial Infarction (MD), Osteoarthritis (OA), Pneumonia Additional Past Medical History / Comment(s): home 02 2 liters n/c: " PT NOT SURE HOW MANY MD'S HE'S TRULY HAD(FOUND ON PAST MED HX 4-PT STATED HE THINKS HE' S HAD MORE)" ,ARTHRITIS LT KNEE/FOOT, bronchitis, sinus problems, constipations , lt wrist/arm fx, hx falls, djd Last Myocardial Infarction Date:: UNK History of Any Multi-Drug Resistant Organisms: None Reported Past Surgical History: Adenoidectomy, Appendectomy, Heart Catheterization With Stent, Hernia Repair, Orthopedic Surgery, Tonsillectomy Additional Past Surgical History / Comment(s): 04/09/15 heart cath with 2 stents to prox circ, other past surguries include: CARDIAC STENTx5, BOWEL SX FOR TWISTED BOWELas child, LT TESTICAL REMOVED.ARTHROSCOPIC KNEE SX. CYST REMOVED(CHEST) LT MIDDLE FINGER SX DONE D/T INJURY.delvin ingiunal hernia repair Past Anesthesia/Blood Transfusion Reactions: No Reported Reaction Date of Last Stent Placement:: UNK Past Psychological History: Depression Additional Psychological History / Comment(s): pt lives alone in his home-has 1 cat. is independant but does have a cane/walker/wheel chair to use if needed. no outside services recieved. Smoking Status: Former smoker Past Alcohol Use History: Rare Additional Past Alcohol Use History / Comment(s): STARTED SMOKING AT AGE 17- SMOKED 1 PPD QUIT 2011 Past Drug Use History: None Reported - Past Family History Father Additional Family Medical History / Comment(s): 2001 Mother Family Medical History: Congestive Heart Failure (CHF), Diabetes Mellitus, Myocardial Infarction (MD) Additional Family Medical History / Comment(s): 1984 Medications and Allergies Home Medications Medication Instructions Recorded Confirmed Type Aspirin EC [Ecotrin Low Dose] 81 mg PO DAILY@1200 06/18/15 12/25/16 History Clopidogrel [Plavix] 75 mg PO HS@0400 02/12/16 12/25/16 History Flaxseed-[place] 3,6,9 Fatty Acid 1 tab PO DAILY@1200 02/12/16 12/25/16 History Glucosam/Anant-Msm1/C/Kvng/Bosw 1 tab PO BID@0400,1200 02/12/16 12/25/16 History [Glucosamine-Chondroitin Tablet] Multivit-Min/FA/Lycopen/Lutein 1 tab PO DAILY@1200 02/12/16 12/25/16 History [Centrum Silver Tablet] Sotalol [Betapace] 40 mg PO BID@0400,1200 02/12/16 12/25/16 History Lisinopril [Zestril] 2.5 mg PO HS@0400 12/07/16 12/25/16 History Loratadine [Alavert] 10 mg PO DAILY@119912/07/16 12/25/16 History Naproxen Sodium [Aleve] 220 mg PO DAILY@1200 12/07/16 12/25/16 History Allergies Allergy/AdvReac Type Severity Reaction Status Date / Time adhesive Allergy Rash/Hives Verified 12/25/16 13:57 Iodinated Contrast- Oral and Allergy Swelling Verified 12/25/16 13:57 IV Dye iodine Allergy Swelling Verified 12/25/16 13:57 Surgical - Exam Vital Signs Temp Pulse Resp BP Pulse Ox 97.3 F L 79 18 108/52 83 L 12/25/16 13:24 12/25/16 13:24 12/25/16 13:24 12/25/16 13:24 12/25/16 13:24 GENERAL APPEARANCE: 76-year-old patient male is alert, oriented, in no acute distress. Talkative sitting up in bed VITAL SIGNS: Reviewed HEENT: Head is normocephalic and atraumatic. Pupils are equal and reactive. The nares are patent. Oropharynx is clear without lesions. NECK: Supple without lymphadenopathy. Traches midline. HEART: S1, S2. Regular rate and rhythm. Denying chest pain LUNGS: Posterior diminished at the bases ABDOMEN: Soft, nontender, nondistended with good bowel sounds. No peritoneal signs. No palpable organomegaly or masses. Rectum skin excoriation noted around the perianal area no open sores no evidence of external hemorrhoids rectal extremities exam noted small amount of blood in the on the digital exam. EXTREMITIES: Normal skin color and turgor. No cyanosis, rash, ulceration, clubbing or edema. Radial pedal pulses are 2/4 bilaterally. NEUROLOGICAL: No focal deficits. Strength and sensation are grossly intact. Results - Labs 12/30/16 10:42 12/30/16 10:41 Abnormal Lab Results - Last 24 Hours (Table) 12/30/16 12/30/16 12/31/16 Range/Units 16:48 21:13 06:29 POC Glucose (mg/dL) 122 H 199 H 113 H (75-99) mg/dL 12/31/16 Range/Units 11:57 POC Glucose (mg/dL) 135 H (75-99) mg/dL Assessment and Plan Plan: Impression Isolated episode of rectal bleeding suspect due to hemorrhoid with no active bleed Chronic dyspnea suspect due to end-stage COPD COPD with an acute exacerbation present on admission Heart failure with no evidence of acute exacerbation chronic systolic Chronic debility Frequent stooling C. diff negative Plan Patient will be scheduled in the outpatient setting to undergo colonoscopy per surgical service this can be arranged in the outpatient setting No evidence of acute surgical intervention warranted at this time From a surgical perspective the patient is felt to be hemodynamically stable and appropriate to proceed with a discharge defer to the timing of the discharge to medicine service Thank you for allowing us to participate in the surgical management of your patient further surgical recommendations pending will follow patient in the outpatient setting
[2016-12-31 17:44] LABS: Glucose,Whole Blood 122 mg/dL (75-99)
[2016-12-31 20:12] LABS: Glucose,Whole Blood 102 mg/dL (75-99)
[2017-01-01] MEDS: CLOPIDOGREL 75 MG TAB PO SCH (03:14)
[2017-01-01] MEDS: SOTALOL 80 MG TAB PO SCH ×2 (03:14→12:10)
[2017-01-01] MEDS: LISINOPRIL 2.5 MG TAB PO SCH (03:15)
[2017-01-01] MEDS: BUDESONIDE 1 MG/2 ML NEBU INHALATION SCH ×2 (07:27→19:36)
[2017-01-01] MEDS: IPRATROPIUM-ALBUTEROL 3 ML NEB INHALATION SCH ×4 (07:27→19:36)
[2017-01-01 07:56] LABS: Glucose,Whole Blood 78 mg/dL (75-99)
[2017-01-01] MEDS: INSULIN LISPRO (humaLOG) 300 UNIT/3 ML VIAL SQ SCH ×4 (08:34→21:40)
[2017-01-01] MEDS: CARBAMIDE PEROXIDE 6.5% DROPS 15 ML BTL LEFT EAR SCH ×2 (08:37→21:40)
[2017-01-01] MEDS: FAMOTIDINE 20 MG TAB PO SCH ×2 (08:40→21:40)
[2017-01-01] MEDS: predniSONE 20 MG TAB PO SCH (08:40)
[2017-01-01] MEDS: ENOXAPARIN 40 MG/0.4 ML SYRINGE SQ SCH (08:40)
--- NOTE | 2017-01-01 10:43 | P.PN ---
Progress Note - Text The patient is being seen for Dr Velez on rounds today. Had some bright red blood per rectum with the frequent wiping from the chest now improved. Still has some anal irritation. The Dr. Amor up plans on a colonoscopy as an outpatient. No excessive bleeding. He is tolerating a soft diet. Having bowel movements that are more formed now. On examination the patient is awake alert in no distress. Abdomen is rather large and obese but no tenderness no guarding or rebound no mass or organomegaly noted. Impression. Rectal bleeding probably outlet nature intermittent from local irritation. Recommendation. Continued medical management local care. Colonoscopy as an outpatient when fully recovered.
[2017-01-01] MEDS: CHOLESTYRAMINE (WITH SUGAR) 4 GM PACKET PO SCH ×2 (11:07→17:18)
[2017-01-01 11:26] LABS: Glucose,Whole Blood 111 mg/dL (75-99)
--- NOTE | 2017-01-01 11:49 | P.PN ---
Subjective Interval history: 12/29/16- the patient is being seen examined and evaluated on the selective care unit. Patient was originally admitted on 12/25/2016 4 a defibrillator discharge. It was found by cardiology that the patient's AICD had an inappropriate discharge and was noted to be displaced in the chest. Cardiology did recommend the patient undergo a repositioning of the AICD the however the patient has refused this recommendation. Overall the patient feels well today. Patient is using supplemental oxygen to 3 LPM, via nasal cannula. has had some shortness of breath on and off with exertion. Denies any cough or congestion at this time. Patient has been noted to have some diarrhea as well, stool will be sent for C. diff and cultures. 12/30/16- patient being seen in evaluated and examined today on the selective care unit during rounds. Patient is currently on 2 L of supplemental oxygen which she does wear home. He still has shortness of breath with exertion, more than baseline. Patient's loose stools have slowed down, his C. diff was negative. Continues to have a good appetite. He has been afebrile. No overnight events. No further complaints. Patient has been recommended for rehabilitation upon discharge. 12/31/16- patient is being seen examined and evaluated today on the fifth floor. Please see resting up in bed on 2 L of supplemental oxygen via nasal cannula. He states his shortness of breath has slightly improved and he feels it to his baseline. Patient continues to have loose stools however they have significantly slowed down in the last 24 hours. Patient was noted to have some bright red streaks in his stool, he is known to have history of hemorrhoids. However he is requesting Dr. Hutchins is consulted before discharge for evaluation. His C. diff was negative cultures negative so far. Continues to have a good appetite. Afebrile no overnight events. Discharge planning is in process for the patient to go to rehab facility. He has been switched over to oral steroids. 01/01/17 patient is being seen examined and evaluated today on the fifth floor. He continues to be resting up in bed on supplemental oxygen which she also wears home. His shortness of breath has continued to improve slowly. His loose stools have some sided. Surgical was consulted yesterday and recommended the patient be worked up in the outpatient setting for possible colonoscopy in the future. Continues with good appetite, afebrile, no overnight events. He was switched over to oral steroids and is tolerating that well. Objective - Vital Signs Vital signs: Vital Signs Temp 98.0 F 01/01/17 07:00 Pulse 63 01/01/17 08:00 Resp 18 01/01/17 08:00 BP 110/68 01/01/17 07:00 Pulse Ox 94 L 01/01/17 07:00 Intake & Output 12/31/16 01/01/17 01/01/17 18:59 06:59 18:59 Intake Total 660 340 Output Total 100 400 Balance 660 240 -400 Weight 126.3 kg Intake: Oral 660 340 Output: Urine 100 400 Other: Voiding Method Urinal Urinal Urinal # Voids 2 # Bowel Movements 1 - Exam GENERAL EXAM: Alert, active, comfortable in no apparent distress. HEAD: Normocephalic. EYES: Normal reaction of pupils, equal size. NOSE: Clear with pink turbinates. THROAT: No erythema or exudates. NECK: No masses, no JVD. CHEST: No chest wall deformity. LUNGS: Lungs noted to be coarse throughout with some expiratory wheezing. Bases diminished. CVS: S1 and S2 normal with no audible mumurs, regular rhythm. ABDOMEN: No hepatosplenomegaly, normal bowel sounds, no guarding or rigidity. EXTREMITIES: No edema noted, pedal pulses palpable. SKIN: No rashes CENTRAL NERVOUS SYSTEM: No focal deficits, tone is normal in all 4 extremities. - Labs CBC & Chem 7: 12/30/16 10:42 12/30/16 10:41 Labs: Abnormal Lab Results - Last 24 Hours (Table) 12/31/16 12/31/16 12/31/16 Range/Units 11:57 17:39 20:09 POC Glucose (mg/dL) 135 H 122 H 102 H (75-99) mg/dL 01/01/17 Range/Units 11:20 POC Glucose (mg/dL) 111 H (75-99) mg/dL Assessment and Plan Plan: Assessment Defibrillator discharge Severe COPD Ischemic cardiomyopathy Dyspnea Diarrhea Congestive heart failure Plan Patient is cleared for discharge from pulmonary standpoint to rehab facility. Patient has continued to refuse to undergo repositioning of his AICD at this time. Stools were negative for C. diff. Patient is known to be noncompliant with medications at home importance of treatment compliance has been discussed with the patient. Steroids have been switched to oral. Medications have been reviewed and will be continued as ordered. Continue with pulmonary hygiene, coughing and deep breathing exercises, and supportive care. Supplemental oxygen to maintain oxygen saturations of 92% or better. Continue nebulizer treatments. GI and DVT prophylaxis. We will continue to monitor labs/results and adjust treatment as necessary. Further recommendations pending. I performed an examination of the patient and discussed their management with the nurse practitioner. I have reviewed the nurse practitioner's note and agree with the documented findings and plan of care.
[2017-01-01] MEDS: ASPIRIN 81 MG CHEW PO SCH (12:10)
[2017-01-01] MEDS: NAPROXEN 250 MG TAB PO SCH (12:10)
[2017-01-01] MEDS: LORATADINE 10 MG TAB PO SCH (12:10)
[2017-01-01] MEDS: MULTIVITAMINS, THERA 1 EACH TAB PO SCH (12:10)
--- NOTE | 2017-01-01 16:12 | PN ---
SUBJECTIVE: 76-year-old white male who appears not to be clinically progressing. He is on oral prednisone. He is pretty much bedridden. He is on updrafts with Pulmicort and DuoNeb. His oxygen level drops when he ambulates at all. His sugars have been in the mid 200's. CARDIOVASCULAR: S1/S2. LUNGS: Show scattered wheezes x4. PSYCH: Poor mood and affect. NEUROLOGIC: Alert and oriented x3. OPHTHALMOLOGIC: Pupils equal, round react to light and accommodation. NEUROLOGIC: Intact. ASSESSMENT: 1. Chronic obstructive pulmonary disease exacerbation. 2. Ischemic cardiomyopathy. 3. Loose stools, improved. Possible colonoscopy as an outpatient. Prognosis is extremely poor. Possible discharge home with home nursing on Tuesday or tomorrow with oral prednisone, DuoNeb and Pulmicort updraft. MARIA ESTHER
[2017-01-01 17:10] LABS: Glucose,Whole Blood 110 mg/dL (75-99)
[2017-01-01 19:42] LABS: Glucose,Whole Blood 158 mg/dL (75-99)
[2017-01-02] MEDS: CLOPIDOGREL 75 MG TAB PO SCH (01:00)
[2017-01-02] MEDS: SOTALOL 80 MG TAB PO SCH ×2 (01:00→13:05)
[2017-01-02] MEDS: LISINOPRIL 2.5 MG TAB PO SCH (01:00)
[2017-01-02] MEDS: IPRATROPIUM-ALBUTEROL 3 ML NEB INHALATION SCH ×4 (07:36→20:24)
[2017-01-02] MEDS: BUDESONIDE 1 MG/2 ML NEBU INHALATION SCH ×2 (07:36→20:24)
[2017-01-02 08:05] LABS: Glucose,Whole Blood 84 mg/dL (75-99)
[2017-01-02] MEDS: INSULIN LISPRO (humaLOG) 300 UNIT/3 ML VIAL SQ SCH ×4 (08:14→21:48)
[2017-01-02] MEDS: predniSONE 20 MG TAB PO SCH (08:57)
[2017-01-02] MEDS: FAMOTIDINE 20 MG TAB PO SCH ×2 (08:57→21:47)
[2017-01-02] MEDS: ENOXAPARIN 40 MG/0.4 ML SYRINGE SQ SCH (08:57)
[2017-01-02] MEDS: CHOLESTYRAMINE (WITH SUGAR) 4 GM PACKET PO SCH ×2 (09:02→17:59)
[2017-01-02] MEDS: CARBAMIDE PEROXIDE 6.5% DROPS 15 ML BTL LEFT EAR SCH ×2 (09:02→21:46)
[2017-01-02 11:49] LABS: Glucose,Whole Blood 134 mg/dL (75-99)
--- NOTE | 2017-01-02 12:04 | P.PN ---
Subjective Interval history: 12/29/16- the patient is being seen examined and evaluated on the selective care unit. Patient was originally admitted on 12/25/2016 4 a defibrillator discharge. It was found by cardiology that the patient's AICD had an inappropriate discharge and was noted to be displaced in the chest. Cardiology did recommend the patient undergo a repositioning of the AICD the however the patient has refused this recommendation. Overall the patient feels well today. Patient is using supplemental oxygen to 3 LPM, via nasal cannula. has had some shortness of breath on and off with exertion. Denies any cough or congestion at this time. Patient has been noted to have some diarrhea as well, stool will be sent for C. diff and cultures. 12/30/16- patient being seen in evaluated and examined today on the selective care unit during rounds. Patient is currently on 2 L of supplemental oxygen which she does wear home. He still has shortness of breath with exertion, more than baseline. Patient's loose stools have slowed down, his C. diff was negative. Continues to have a good appetite. He has been afebrile. No overnight events. No further complaints. Patient has been recommended for rehabilitation upon discharge. 12/31/16- patient is being seen examined and evaluated today on the fifth floor. Please see resting up in bed on 2 L of supplemental oxygen via nasal cannula. He states his shortness of breath has slightly improved and he feels it to his baseline. Patient continues to have loose stools however they have significantly slowed down in the last 24 hours. Patient was noted to have some bright red streaks in his stool, he is known to have history of hemorrhoids. However he is requesting Dr. Hutchins is consulted before discharge for evaluation. His C. diff was negative cultures negative so far. Continues to have a good appetite. Afebrile no overnight events. Discharge planning is in process for the patient to go to rehab facility. He has been switched over to oral steroids. 01/01/17 patient is being seen examined and evaluated today on the fifth floor. He continues to be resting up in bed on supplemental oxygen which she also wears home. His shortness of breath has continued to improve slowly. His loose stools have some sided. Surgical was consulted yesterday and recommended the patient be worked up in the outpatient setting for possible colonoscopy in the future. Continues with good appetite, afebrile, no overnight events. He was switched over to oral steroids and is tolerating that well. 01/02/17-she has been seen examined and evaluated today on the fifth floor. Patient currently resting up in bed on supplemental oxygen. He states he has been significantly weak today. Patient would benefit from a rehab facility. He states he does not walk very oxygen due to weakness and shortness of breath. His appetite has been good. He is afebrile no overnight events. Objective - Vital Signs Vital signs: Vital Signs Temp 97.8 F 01/02/17 07:00 Pulse 71 01/02/17 11:32 Resp 18 01/02/17 08:00 BP 99/56 01/02/17 07:00 Pulse Ox 96 01/02/17 07:00 Intake & Output 01/01/17 01/02/17 01/02/17 18:59 06:59 18:59 Output Total 750 600 Balance -750 -600 Output: Urine 750 600 Other: Voiding Method Urinal Urinal Urinal # Voids 2 # Bowel Movements 1 - Exam GENERAL EXAM: Alert, active, comfortable in no apparent distress. HEAD: Normocephalic. EYES: Normal reaction of pupils, equal size. NOSE: Clear with pink turbinates. THROAT: No erythema or exudates. NECK: No masses, no JVD. CHEST: No chest wall deformity. LUNGS: Lungs noted to be coarse throughout with some expiratory wheezing. Bases diminished. CVS: S1 and S2 normal with no audible mumurs, regular rhythm. ABDOMEN: No hepatosplenomegaly, normal bowel sounds, no guarding or rigidity. EXTREMITIES: No edema noted, pedal pulses palpable. SKIN: No rashes CENTRAL NERVOUS SYSTEM: No focal deficits, tone is normal in all 4 extremities. - Labs CBC & Chem 7: 12/30/16 10:42 12/30/16 10:41 Labs: Abnormal Lab Results - Last 24 Hours (Table) 01/01/17 01/01/17 01/02/17 Range/Units 17:08 19:41 11:16 POC Glucose (mg/dL) 110 H 158 H 134 H (75-99) mg/dL Assessment and Plan Plan: Assessment Defibrillator discharge Severe COPD with acute exacerbation Ischemic cardiomyopathy Dyspnea Diarrhea Congestive heart failure Acute on chronic hypoxic respiratory failure Plan Patient is cleared for discharge from pulmonary standpoint to rehab facility. Patient has continued to refuse to undergo repositioning of his AICD at this time. Stools were negative for C. diff. Patient is known to be noncompliant with medications at home importance of treatment compliance has been discussed with the patient. Steroids have been switched to oral. Medications have been reviewed and will be continued as ordered. Continue with pulmonary hygiene, coughing and deep breathing exercises, and supportive care. Supplemental oxygen to maintain oxygen saturations of 92% or better. Continue nebulizer treatments. GI and DVT prophylaxis. We will continue to monitor labs/results and adjust treatment as necessary. Further recommendations pending. I performed an examination of the patient and discussed their management with the nurse practitioner. I have reviewed the nurse practitioner's note and agree with the documented findings and plan of care.
[2017-01-02] MEDS: ASPIRIN 81 MG CHEW PO SCH (13:04)
[2017-01-02] MEDS: LORATADINE 10 MG TAB PO SCH (13:04)
[2017-01-02] MEDS: NAPROXEN 250 MG TAB PO SCH (13:04)
[2017-01-02] MEDS: MULTIVITAMINS, THERA 1 EACH TAB PO SCH (13:05)
[2017-01-02] MEDS: HYDROCORTISONE 2.5% RECTAL CREAM 30 GM TUBE RECTAL SCH ×2 (16:28→21:47)
[2017-01-02 17:39] LABS: Glucose,Whole Blood 117 mg/dL (75-99)
[2017-01-02 19:49] LABS: Glucose,Whole Blood 151 mg/dL (75-99)
[2017-01-03] MEDS: SOTALOL 80 MG TAB PO SCH ×2 (02:59→13:11)
[2017-01-03] MEDS: LISINOPRIL 2.5 MG TAB PO SCH (03:00)
[2017-01-03] MEDS: CLOPIDOGREL 75 MG TAB PO SCH (03:00)
--- NOTE | 2017-01-03 06:21 | PN ---
SUBJECTIVE: A 76-year-old white male with end-stage COPD, pulmonary fibrosis, diastolic CHF, pacemaker, AICD malplacement, patient refused to have it fixed. Treating his COPD and shortness of breath at the current time. CARDIOVASCULAR: S1, S2. LUNGS: Scattered wheeze x4. HEMATOLOGY: Negative Homans. PSYCH: Fair mood affect. OPHTHALMOLOGIC: Pupils equal, round and reactive to light and accommodation. ASSESSMENT: 1. Asthma, 2. Chronic obstructive pulmonary disease exacerbation. 3. Tracheobronchitis. 4. Generalized debility. PLAN: IV steroids, Pulmicort, albuterol, Atrovent updrafts. Follow up in the next 24 to 48 hours for discharge. Continue to weaning. Home on steroids, 60, 40, 20, 10 mg 4 days each. MTDD
[2017-01-03 06:59] LABS: Glucose,Whole Blood 95 mg/dL (75-99)
[2017-01-03] MEDS: BUDESONIDE 1 MG/2 ML NEBU INHALATION SCH (07:12)
[2017-01-03] MEDS: IPRATROPIUM-ALBUTEROL 3 ML NEB INHALATION SCH ×2 (07:12→12:08)
[2017-01-03 07:37] VITALS: BP 118/77; RESP 16; TEMP 97.3
[2017-01-03] MEDS: INSULIN LISPRO (humaLOG) 300 UNIT/3 ML VIAL SQ SCH ×2 (07:41→11:26)
[2017-01-03] MEDS: ENOXAPARIN 40 MG/0.4 ML SYRINGE SQ SCH (07:45)
[2017-01-03] MEDS: predniSONE 20 MG TAB PO SCH (07:45)
[2017-01-03] MEDS: CHOLESTYRAMINE (WITH SUGAR) 4 GM PACKET PO SCH (07:45)
[2017-01-03] MEDS: ASPIRIN 81 MG CHEW PO SCH (07:45)
[2017-01-03] MEDS: FAMOTIDINE 20 MG TAB PO SCH (07:45)
[2017-01-03] MEDS: HYDROCORTISONE 2.5% RECTAL CREAM 30 GM TUBE RECTAL SCH (07:48)
[2017-01-03] MEDS: CARBAMIDE PEROXIDE 6.5% DROPS 15 ML BTL LEFT EAR SCH (07:48)
--- NOTE | 2017-01-03 10:43 | P.DS ---
Providers Date of admission: 12/25/16 14:24 Expected date of discharge: 01/03/17 Attending physician: Alan Otero Consults: 12/25/16 14:24 Consult Physician Urgent Consulting Provider: Rico Lyn Consult Reason/Comments: defibDischarge Do you want consulting provider notified?: Yes 12/26/16 11:17 Consult Physician Routine Consulting Provider: Herman Cornell Consult Reason/Comments: copd/pulmonary htn Do you want consulting provider notified?: Yes 12/31/16 08:18 Consult Physician Urgent Consulting Provider: Abhijit Velez Consult Reason/Comments: bright blood in stool Do you want consulting provider notified?: Yes Primary care physician: Alan Otero - Discharge Diagnosis(es) (1) Defibrillator discharge Status: Resolved (2) COPD (chronic obstructive pulmonary disease) Status: Chronic (3) Ischemic cardiomyopathy Status: Chronic (4) Dyspnea Status: Chronic (5) Diarrhea Status: Resolved (6) Heart failure, systolic, chronic Status: Chronic Hospital Course: Hospital course: This is a 76-year-old male who was admitted on 12/25/2016 due to his defibrillator discharging at home. ICD shock was thought to be inappropriate due to displacement from its lateral location to more medial location. It was recommended for patient to undergo repositioning of ICD but patient refused procedure. Patient has a history of COPD and was treated for an acute exacerbation with IV steroids which have since been transitioned to oral. Patient also received scheduled breathing treatments. Patient also has a history of coronary artery disease with stenting and multiple myocardial infarctions. Patient refuses to take his Lasix at home because he does not want to use the restroom multiple times. Medication compliance was discussed with patient. During hospitalization patient developed loose stools. C. diff negative. Dr. Taylor was consulted to see the patient due to rectal bleeding. Patient has history of hemorrhoids. No surgical intervention and surgery signed off. Patient to see surgery outpatient for possible colonoscopy. It was recommended that patient be discharged to an ECF but patient is refusing at this time. Physical therapy was consulted and determined patient was safe to be discharged home with home care. Dr. Otero states he will set up home care nursing and physical therapy for patient. Patient Condition at Discharge: Fair Plan - Discharge Summary New Discharge Prescriptions: New Budesonide [Pulmicort] 1 mg INHALATION RT-BID #60 neb Hydrocortisone Pr Cream [Proctosol-Hc 2.5%] 1 applic RECTAL BID #1 pkg predniSONE 10 mg PO DAILY #52 tab Continue Aspirin EC [Ecotrin Low Dose] 81 mg PO DAILY@1200 Flaxseed-Nye 3,6,9 Fatty Acid 1 tab PO DAILY@1200 Sotalol [Betapace] 40 mg PO BID@0400,1200 Clopidogrel [Plavix] 75 mg PO HS@0400 Multivit-Min/FA/Lycopen/Lutein [Centrum Silver Tablet] 1 tab PO DAILY@1200 Glucosam/Anant-Msm1/C/Kvng/Bosw [Glucosamine-Chondroitin Tablet] 1 tab PO BID@ 0400,1200 Loratadine [Alavert] 10 mg PO DAILY@1200 Lisinopril [Zestril] 2.5 mg PO HS@0400 Carbamide Peroxide [Debrox Otic] 5 drops LEFT EAR BID #1 bottle Ipratropium-Albuterol Nebulize [Duoneb 0.5 mg-3 mg/3 ml Soln] 3 ml INHALATION RT-QID neb Discontinued Naproxen Sodium [Aleve] 220 mg PO DAILY@1200 predniSONE 60 mg PO DAILY #15 tab Discharge Medication List Aspirin EC [Ecotrin Low Dose] 81 mg PO DAILY@1200 06/18/15 [History] Clopidogrel [Plavix] 75 mg PO HS@0400 02/12/16 [History] Flaxseed-Nye 3,6,9 Fatty Acid 1 tab PO DAILY@1200 02/12/16 [History] Glucosam/Anant-Msm1/C/Kvng/Bosw [Glucosamine-Chondroitin Tablet] 1 tab PO BID@ 0400,1200 02/12/16 [History] Multivit-Min/FA/Lycopen/Lutein [Centrum Silver Tablet] 1 tab PO DAILY@1200 02/11 [History] Sotalol [Betapace] 40 mg PO BID@0400,1200 02/12/16 [History] Lisinopril [Zestril] 2.5 mg PO HS@0400 12/07/16 [History] Loratadine [Alavert] 10 mg PO DAILY@1200 12/07/16 [History] Carbamide Peroxide [Debrox Otic] 5 drops LEFT EAR BID #1 bottle 12/14/16 [Rx] Ipratropium-Albuterol Nebulize [Duoneb 0.5 mg-3 mg/3 ml Soln] 3 ml INHALATION RT -QID neb 12/14/16 [Rx] Budesonide [Pulmicort] 1 mg INHALATION RT-BID #60 neb 01/03/17 [Rx] Hydrocortisone Pr Cream [Proctosol-Hc 2.5%] 1 applic RECTAL BID #1 pkg 01/03/17 [Rx] predniSONE 10 mg PO DAILY #52 tab 01/03/17 [Rx] Follow up Appointment(s)/Referral(s): Alan Otero MD [Primary Care Provider] - 01/10/17 3:00 pm Herman Cornell MD [STAFF PHYSICIAN] - 1 Week [facility] Visiting Nurse, [NON-STAFF] - 1 Week Abhijit Velez MD [STAFF PHYSICIAN] - 01/13/17 2:30 pm Patient Instructions/Handouts: Prednisone (By mouth), Hydrocortisone (On the skin), Budesonide (By breathing), Chronic Hypertension (DC) Discharge Disposition: HOME WITH HOME HEALTH SERVICES
--- NOTE | 2017-01-03 11:09 | P.PN ---
Subjective Interval history: 12/29/16- the patient is being seen examined and evaluated on the selective care unit. Patient was originally admitted on 12/25/2016 4 a defibrillator discharge. It was found by cardiology that the patient's AICD had an inappropriate discharge and was noted to be displaced in the chest. Cardiology did recommend the patient undergo a repositioning of the AICD the however the patient has refused this recommendation. Overall the patient feels well today. Patient is using supplemental oxygen to 3 LPM, via nasal cannula. has had some shortness of breath on and off with exertion. Denies any cough or congestion at this time. Patient has been noted to have some diarrhea as well, stool will be sent for C. diff and cultures. 12/30/16- patient being seen in evaluated and examined today on the selective care unit during rounds. Patient is currently on 2 L of supplemental oxygen which she does wear home. He still has shortness of breath with exertion, more than baseline. Patient's loose stools have slowed down, his C. diff was negative. Continues to have a good appetite. He has been afebrile. No overnight events. No further complaints. Patient has been recommended for rehabilitation upon discharge. 12/31/16- patient is being seen examined and evaluated today on the fifth floor. Please see resting up in bed on 2 L of supplemental oxygen via nasal cannula. He states his shortness of breath has slightly improved and he feels it to his baseline. Patient continues to have loose stools however they have significantly slowed down in the last 24 hours. Patient was noted to have some bright red streaks in his stool, he is known to have history of hemorrhoids. However he is requesting Dr. Hutchins is consulted before discharge for evaluation. His C. diff was negative cultures negative so far. Continues to have a good appetite. Afebrile no overnight events. Discharge planning is in process for the patient to go to rehab facility. He has been switched over to oral steroids. 01/01/17 patient is being seen examined and evaluated today on the fifth floor. He continues to be resting up in bed on supplemental oxygen which she also wears home. His shortness of breath has continued to improve slowly. His loose stools have some sided. Surgical was consulted yesterday and recommended the patient be worked up in the outpatient setting for possible colonoscopy in the future. Continues with good appetite, afebrile, no overnight events. He was switched over to oral steroids and is tolerating that well. 01/02/17-she has been seen examined and evaluated today on the fifth floor. Patient currently resting up in bed on supplemental oxygen. He states he has been significantly weak today. Patient would benefit from a rehab facility. He states he does not walk very oxygen due to weakness and shortness of breath. His appetite has been good. He is afebrile no overnight events. 01/03/17- patient being seen examined and evaluated today on the fifth floor. Patient is being set up for discharge today to home with home care. Patient states he was up ambulating in the room today with less shortness of breath than previously. He is afebrile no overnight events. Objective - Vital Signs Vital signs: Vital Signs Temp 97.3 F L 01/03/17 07:00 Pulse 71 01/03/17 08:00 Resp 16 01/03/17 08:00 BP 118/77 01/03/17 07:00 Pulse Ox 89 L 01/03/17 07:16 Intake & Output 01/02/17 01/03/17 01/03/17 18:59 06:59 18:59 Intake Total 740 Output Total 300 500 400 Balance -300 240 -400 Weight 121.563 kg 121.563 kg Intake: Oral 740 Output: Urine 300 500 400 Other: Voiding Method Bedside Commode Bedside Commode Bedside Commode Urinal Urinal Urinal # Voids 1 # Bowel Movements 1 - Exam GENERAL EXAM: Alert, active, comfortable in no apparent distress. HEAD: Normocephalic. EYES: Normal reaction of pupils, equal size. NOSE: Clear with pink turbinates. THROAT: No erythema or exudates. NECK: No masses, no JVD. CHEST: No chest wall deformity. LUNGS: Lungs noted to be coarse throughout with some expiratory wheezing. Bases diminished. CVS: S1 and S2 normal with no audible mumurs, regular rhythm. ABDOMEN: No hepatosplenomegaly, normal bowel sounds, no guarding or rigidity. EXTREMITIES: No edema noted, pedal pulses palpable. SKIN: No rashes CENTRAL NERVOUS SYSTEM: No focal deficits, tone is normal in all 4 extremities. - Labs CBC & Chem 7: 12/30/16 10:42 12/30/16 10:41 Labs: Abnormal Lab Results - Last 24 Hours (Table) 01/02/17 01/02/17 01/02/17 Range/Units 11:16 17:33 19:47 POC Glucose (mg/dL) 134 H 117 H 151 H (75-99) mg/dL Assessment and Plan Plan: Assessment Defibrillator discharge Severe COPD with acute exacerbation Ischemic cardiomyopathy Dyspnea Diarrhea Congestive heart failure Acute on chronic hypoxic respiratory failure Plan Patient is cleared for discharge from pulmonary standpoint to rehab facility. Patient will require steroid taper in the outpatient setting. Patient has continued to refuse to undergo repositioning of his AICD at this time. Stools were negative for C. diff. Patient is known to be noncompliant with medications at home importance of treatment compliance has been discussed with the patient. Steroids have been switched to oral. Medications have been reviewed and will be continued as ordered. Continue with pulmonary hygiene, coughing and deep breathing exercises, and supportive care. Supplemental oxygen to maintain oxygen saturations of 92% or better. Continue nebulizer treatments. GI and DVT prophylaxis. We will continue to monitor labs/results and adjust treatment as necessary. Further recommendations pending. I performed an examination of the patient and discussed their management with the nurse practitioner. I have reviewed the nurse practitioner's note and agree with the documented findings and plan of care.
[2017-01-03 11:26] LABS: Glucose,Whole Blood 106 mg/dL (75-99)
[2017-01-03 12:28] VITALS: PULSE 72
[2017-01-03] MEDS: MULTIVITAMINS, THERA 1 EACH TAB PO SCH (13:12)
[2017-01-03] MEDS: LORATADINE 10 MG TAB PO SCH (13:12)
[2017-01-03] MEDS: NAPROXEN 250 MG TAB PO SCH (13:12)
--- NOTE | 2017-01-05 07:00 | CDI ---
In responding to this query, please exercise your independent professional judgment. The [facility] Coding Staff and Clinical Documentation Specialists appreciate your assistance in clarifying documentation, maintaining compliance with coding guidelines, accurately documenting patients condition and capturing severity of illness. The fact that a question is asked does not imply that any particular answer is desired or expected. Communication forms are a method of clarifying documentation and are not made part of the Legal Health Record. Thank you in advance for your clarification. Last Revision, March 2015 Date: 01/05/2017 6:45:00 AM From: KYREE Mcclellan Deborah Biskner, Forestry Extension Specialist Admit Date: 12/25/2016 2:24:00 PM Patient Name: Huey Brasher Visit Number: [id number] Discharge Date: Dr. Alan Otero Conflicting documentation has been found in the medical record. On consultation (12/27/16) and progress note (12/28/16), acute exacerbation of systolic congestive heart failure is documented. Chest x-ray showed component of interstitial lung disease and acute congestive heart failure. The patient was given IV Lasix. The Discharge Summary documents chronic heart failure, systolic. In your opinion what is the most clinically appropriate diagnosis for this patient? Acute/Chronic Systolic congestive heart failure. Chronic systolic congestive heart failure. OTHER explanation of clinical findings Unable to determine (no explanation for clinical findings) Please document in your progress notes and discharge summary in order to capture severity of illness and risk of mortality. Include clinical findings that support your diagnosis. FYI: Press F11 to launch patient chart. If you have a question about this query, please contact Nelda Cazares Forestry Extension Specialist at [phone] between 8am and 5pm. MARIA ESTHER
== END 2017-01-03 14:40 | disposition home health service (06) | DRG 308 ==
LOC: EC 13:19 → 6SEL 14:24 → 5MS5E 12-31 10:04
PROVIDERS: ADMIT Family Medicine; ATTEND Family Medicine
DX: T82.121A Displacement of cardiac pulse generator (battery), initial encounter (principal); J96.21 Acute and chronic respiratory failure with hypoxia; I50.23 Acute on chronic systolic (congestive) heart failure; J44.1 Chronic obstructive pulmonary disease with (acute) exacerbation; J44.0 Chronic obstructive pulmonary disease with (acute) lower respiratory infection; I27.2 Other secondary pulmonary hypertension; J84.10 Pulmonary fibrosis, unspecified; I25.5 Ischemic cardiomyopathy; I25.10 Atherosclerotic heart disease of native coronary artery without angina pectoris; I11.0 Hypertensive heart disease with heart failure; E78.5 Hyperlipidemia, unspecified; E66.9 Obesity, unspecified; F17.200 Nicotine dependence, unspecified, uncomplicated; I25.2 Old myocardial infarction; J32.9 Chronic sinusitis, unspecified; K64.9 Unspecified hemorrhoids; Z53.20 Procedure and treatment not carried out because of patient's decision for unspecified reasons; Z79.02 Long term (current) use of antithrombotics/antiplatelets; Z79.82 Long term (current) use of aspirin; Z82.49 Family history of ischemic heart disease and other diseases of the circulatory system; Z91.19 Patient's noncompliance with other medical treatment and regimen; Z95.5 Presence of coronary angioplasty implant and graft; Z99.81 Dependence on supplemental oxygen; R19.7 Diarrhea, unspecified; Z91.041 Radiographic dye allergy status; J40 Bronchitis, not specified as acute or chronic
CPT/HCPCS: 36415; 71010; 80053; 80061; 82550; 82553; 83036; 83735; 83880; 84100; 84484; 85025; 87045; 87046; 87324; 93005; 94640; 94760; 96360; 99291

== ENCOUNTER 2017-01-04 21:13 | Inpatient (IN) | payer MEDICARE ==
[2017-01-04] MEDS ORDERED: ONDANSETRON 4 MG/2 ML VIAL IVP STA (21:22)
[2017-01-04] MEDS ORDERED: MORPHINE SULFATE 2 MG/ML SYRINGE IVP STA (21:22)
[2017-01-04] MEDS ORDERED: SODIUM CHLORIDE 0.9% 1,000 ML IV STA (21:22)
[2017-01-04] MEDS ORDERED: NITROGLYCERIN OINT 1 INCH/GM PACKET TOPICAL STA (21:27)
[2017-01-04] MEDS ORDERED: MORPHINE SULFATE 4 MG/ML SYRINGE IVP STA (21:30)
[2017-01-04] MEDS ORDERED: ASPIRIN 325 MG TAB PO STA (21:31)
[2017-01-04 21:46] LABS: Anisocytosis Slight; Basophils # (A) 0.1 k/uL (0-0.2); Basophils % (A) 1 %; CH 31.4; CHCM 32.1; Eosinophils # (A) 0.7 k/uL (0-0.7); Eosinophils % (A) 6 %; HCT 53.8 % (39.0-53.0); HDW 2.34; HGB 16.7 gm/dL (13.0-17.5); Luc # (Auto) 0.12; Luc % (Auto) 1; Lymphocytes # (A) 0.7 k/uL (1.0-4.8); Lymphocytes % (A) 6 %; MCH 30.6 pg (25.0-35.0); MCHC 31.1 g/dL (31.0-37.0); MCV 98.3 fL (80.0-100.0); Macrocytosis Slight; Mean Platelet Volume 7.5; Monocytes # (A) 0.6 k/uL (0-1.0); Monocytes % (A) 6 %; Neutrophils # (A) 8.6 k/uL (1.3-7.7); Neutrophils % (A) 80 %; RBC 5.48 m/uL (4.30-5.90); RDW 16.2 % (11.5-15.5); WBC 10.8 k/uL (3.8-10.6); WBC (Perox) 10.63
[2017-01-04 22:02] LABS: INR 1.1 (<1.2); Partial Thromboplastin Time 23.5 sec (22.0-30.0); Prothrombin Time 10.8 sec (9.0-12.0)
[2017-01-04 22:05] LABS: ALT 58 U/L (21-72); AST 42 U/L (17-59); Alkaline Phosphatase 116 U/L (38-126); Anion Gap 10 mmol/L; Blood Urea Nitrogen 29 mg/dL (9-20); Calcium 9.7 mg/dL (8.4-10.2); Carbon Dioxide 29 mmol/L (22-30); Chloride 97 mmol/L (98-107); Glucose 145 mg/dL (74-99); Magnesium 1.8 mg/dL (1.6-2.3); Non-African American GFR(MDRD) >60 (>60 ml/min/1.73 sqM); Sodium 136 mmol/L (137-145); Total Protein 6.4 g/dL (6.3-8.2)
[2017-01-04] MEDS ORDERED: FUROSEMIDE 10 MG/ML 10 ML VIAL IV STA (22:16)
[2017-01-04] MEDS ORDERED: cefTRIAXone 2,000 MG in SODIUM CHLORIDE 0.9% 100 ML IVPB STA (22:17)
[2017-01-04] MEDS ORDERED: AZITHROMYCIN 500 MG in SODIUM CHLORIDE 0.9% 250 ML IVPB STA (22:17)
--- NOTE | 2017-01-04 22:22 | XR ---
EXAM: XR Chest, 2 Views CLINICAL HISTORY: Reason: Chest Pain TECHNIQUE: Frontal and lateral views of the chest. COMPARISON: 12/26/2016 FINDINGS: Lungs: Bilateral marked pulmonary edema is again seen, interval worsening since the prior study. Again seen is an opacity in the right midlung, more conspicuous on this study than the prior, likely secondary to worsening pulmonary edema. Pleural space: Small bilateral pleural effusions are also likely present. No pneumothorax. Heart: The cardiac silhouette is enlarged, suspected interval worsening since prior study. Mediastinum: Prominent, likely secondary to vasculature. Bones/joints: Unchanged. Other findings: Electronic device again noted overlying the left hemithorax. IMPRESSION: Interval worsening of pulmonary edema and cardiomegaly, as above. Cannot definitively exclude superimposed infection.
[2017-01-04 22:23] LABS: Creatine Kinase MB 5.9 ng/mL (0.0-2.4); Troponin I 1.32 ng/mL (0.000-0.034)
[2017-01-04] MEDS ORDERED: HEPARIN SODIUM,PORCINE 5,000 UNIT/ML 1 ML VIAL IV ONE (22:41)
[2017-01-04] MEDS ORDERED: HEPARIN SODIUM,PORCINE 5,000 UNIT/ML 1 ML VIAL IV PRN (22:41)
[2017-01-04] MEDS ORDERED: METOCLOPRAMIDE 5 MG/ML 2 ML VIAL IVP STA (22:42)
[2017-01-04] MEDS ORDERED: MORPHINE SULFATE 2 MG/ML SYRINGE IVP PRN (23:15)
[2017-01-04] MEDS ORDERED: NITROGLYCERIN SL TABS 0.4 MG TAB SUBLINGUAL PRN (23:15)
--- NOTE | 2017-01-04 23:15 | ED ---
Chest Pain HPI - General Chief Complaint: Chest Pain Stated Complaint: CHEST PAIN Time Seen by Provider: 01/04/17 21:14 Source: patient, family Mode of arrival: wheelchair Limitations: no limitations - History of Present Illness Initial Comments: 76 years old male was discharged from the hospital yesterday, he noticed chest pain today and chronic shortness of breath got worse, chest pain is worse with deep breaths. His cough was quite consistent today he noticed also that he had a bit of fever. He denies any headaches no neck stiffness has chest pain and shortness of breath no abdominal pain no frequency urgency dysuria no sinus symptoms of TIA. He also noticed that his defibrillator went off today. When PATIENT was 2 hours and he also do not like taking Lasix because that makes it go to the bathroom - Related Data Home Medications Medication Instructions Recorded Confirmed Aspirin EC [Ecotrin Low Dose] 81 mg PO DAILY@1200 06/18/15 01/04/17 Clopidogrel [Plavix] 75 mg PO HS@0400 02/12/16 01/04/17 Flaxseed-[place] 3,6,9 Fatty Acid 1 tab PO DAILY@119902/12/16 01/04/17 Glucosam/Anant-Msm1/C/Kvng/Bosw 1 tab PO BID@0400,1200 02/12/16 01/04/17 [Glucosamine-Chondroitin Tablet] Multivit-Min/FA/Lycopen/Lutein 1 tab PO DAILY@119902/12/16 01/04/17 [Centrum Silver Tablet] Sotalol [Betapace] 40 mg PO BID@0400,1200 02/12/16 01/04/17 Lisinopril [Zestril] 2.5 mg PO HS@0400 12/07/16 01/04/17 Loratadine [Alavert] 10 mg PO DAILY@1200 12/07/16 01/04/17 predniSONE See Taper PO DAILY 01/04/17 01/04/17 Previous Rx's Medication Instructions Recorded Carbamide Peroxide [Debrox Otic] 5 drops LEFT EAR BID #1 bottle 12/14/16 Ipratropium-Albuterol Nebulize 3 ml INHALATION RT-QID neb 12/14/16 [Duoneb 0.5 mg-3 mg/3 ml Soln] Budesonide [Pulmicort] 1 mg INHALATION RT-BID #60 neb 01/03/17 Hydrocortisone Pr Cream 1 applic RECTAL BID #1 pkg 01/03/17 [Proctosol-Hc 2.5%] Allergies Allergy/AdvReac Type Severity Reaction Status Date / Time adhesive Allergy Rash/Hives Verified 01/04/17 21:35 Iodinated Contrast- Oral and Allergy Swelling Verified 01/04/17 21:35 IV Dye iodine Allergy Swelling Verified 01/04/17 21:35 Review of Systems ROS Statement: Those systems with pertinent positive or pertinent negative responses have been documented in the HPI. ROS Other: All systems not noted in ROS Statement are negative. EKG Findings - EKG Comments: EKG Findings:: EKG is sinus tachycardia heart rate is 109 [place] interval is 152 QRS duration is 120/QTc is 324/436 review of this EKG reveals some T-wave inversion in lead 2 and lead 3 noticed some T-wave inversion in lead aVF as well also noticed some ST depression in V5 and V6 no ST elevation noticed this EKG Past Medical History Past Medical History: Asthma, Coronary Artery Disease (CAD), Chest Pain / Angina , COPD, Hypertension, Myocardial Infarction (OK), Osteoarthritis (OA), Pneumonia Additional Past Medical History / Comment(s): home 02 2 liters n/c: " PT NOT SURE HOW MANY OK'S HE'S TRULY HAD(FOUND ON PAST MED HX 4-PT STATED HE THINKS HE' S HAD MORE)" ,ARTHRITIS LT KNEE/FOOT, bronchitis, sinus problems, constipations , lt wrist/arm fx, hx falls, djd Last Myocardial Infarction Date:: UNK History of Any Multi-Drug Resistant Organisms: None Reported Past Surgical History: Adenoidectomy, Appendectomy, Heart Catheterization With Stent, Hernia Repair, Orthopedic Surgery, Tonsillectomy Additional Past Surgical History / Comment(s): 04/09/15 heart cath with 2 stents to prox circ, other past surguries include: CARDIAC STENTx5, BOWEL SX FOR TWISTED BOWELas child, LT TESTICAL REMOVED.ARTHROSCOPIC KNEE SX. CYST REMOVED(CHEST) LT MIDDLE FINGER SX DONE D/T INJURY.delvin ingiunal hernia repair Past Anesthesia/Blood Transfusion Reactions: No Reported Reaction Date of Last Stent Placement:: UNK Past Psychological History: Depression Smoking Status: Former smoker Past Alcohol Use History: Rare Past Drug Use History: None Reported - Past Family History Father Additional Family Medical History / Comment(s): 2001 Mother Family Medical History: Congestive Heart Failure (CHF), Diabetes Mellitus, Myocardial Infarction (OK) Additional Family Medical History / Comment(s): 1984 General Exam - General Exam Comments Initial Comments: General: The patient is awake and alert, in mod distress Skin: Skin is warm and dry and no rashes or lesions are noted. Eye: Pupils are equal, round and reactive to light, extra-ocular movements are intact; there is normal conjunctiva bilaterally. Ears, nose, mouth and throat: There are moist mucous membranes and no oral lesions. Neck: The neck is supple, there is no tenderness to his elevated JVD Cardiovascular: There is a regular rate and rhythm. No murmur, rub or gallop is appreciated. Respiratory: To auscultation lateral noticed crackles Gastrointestinal: Soft, non-distended, non-tender abdomen without masses or organomegaly noted. There is no rebound or guarding present. Bowel sounds are unremarkable. Back: There is no tenderness to palpation in the midline. There is no obvious deformity. Musculoskeletal: Normal ROM, no tenderness, There is no pedal edema. There is no calf tenderness or swelling. No cords were appreciated. Neurological: CN II-XII intact, Cranial nerves III through XII are intact. There are no obvious motor or sensory deficits. Coordination appears grossly intact. Speech is normal. Psychiatric: Cooperative, appropriate mood & affect, normal judgment. Limitations: no limitations Course Vital Signs 01/04/17 21:19 Temperature 100.5 F H Pulse Rate 111 H Respiratory 28 H Rate Blood Pressure 150/66 O2 Sat by Pulse 85 L Oximetry Critical Care Time Total Critical Care Time: 45 Critical Care Time: He came in quite short winded, his O2 sat was 85% he insisted that this is normal for him considering that A probe was started portable chest x-ray was done which confirmed pulmonary edema and also there is a question of infiltrate considering he had a fever and he has a history of COPD considering all these comorbidities were ordered stat Lasix which he continue to use additionally finally he agreed with the meantime occult the labs back which revealed elevated troponin his troponin is 1.3-0 CK-MB was 5.9 and his chest x-ray confirmed pulmonary edema considering that contacted Dr. Alan Coker he agreed for the admission will consult cardiology since she had done twice his defibrillator go off that all he be located after his lungs his d-dimer is elevated and he is ALLERGIC to iodine and ordered a VQ scan in patient he be going to monitored bed considering his elevated troponin he will started on a heparin drip Disposition Clinical Impression: Pulmonary edema, Myocardial infarction, Elevated d-dimer, Pneumonia Disposition: ADMITTED IP TO THIS HOSP Condition: Serious Referrals: Alan Otero MD [Primary Care Provider] - 1-2 days
[2017-01-04] MEDS ORDERED: FUROSEMIDE 10 MG/ML 4 ML VIAL IV STA (23:25)
[2017-01-05] MEDS: HEPARIN SODIUM,PORCINE/D5W PMX 25,000 UNIT in DEXTROSE/WATER 1 500ML.BAG IV SCH ×2 (00:07→22:45)
[2017-01-05 00:40] LABS: Glucose,Whole Blood 129 mg/dL (75-99)
[2017-01-05 04:50] LABS: VBG PH 7.55 (7.31-7.41)
[2017-01-05 04:55] LABS: Basophils % (A) 0 %; CHCM 31.5; Eosinophils # (A) 0.5 k/uL (0-0.7); Eosinophils % (A) 5 %; HCT 54.1 % (39.0-53.0); HDW 2.26; HGB 16.7 gm/dL (13.0-17.5); Luc # (Auto) 0.13; Luc % (Auto) 1; Lymphocytes # (A) 0.4 k/uL (1.0-4.8); Lymphocytes % (A) 4 %; MCH 30.6 pg (25.0-35.0); MCHC 30.9 g/dL (31.0-37.0); Macrocytosis Slight; Mean Platelet Volume 7.2; Monocytes # (A) 0.6 k/uL (0-1.0); Monocytes % (A) 6 %; Neutrophils # (A) 8.1 k/uL (1.3-7.7); Neutrophils % (A) 83 %; RBC 5.47 m/uL (4.30-5.90); RDW 15.8 % (11.5-15.5); WBC 9.8 k/uL (3.8-10.6); WBC (Perox) 9.65
[2017-01-05 05:11] LABS: Anion Gap 9 mmol/L; Blood Urea Nitrogen 29 mg/dL (9-20); Calcium 9.1 mg/dL (8.4-10.2); Carbon Dioxide 31 mmol/L (22-30); Chloride 94 mmol/L (98-107); Cholesterol 178 mg/dL (<200); Glucose 131 mg/dL (74-99); HDL Cholesterol 50 mg/dL (40-60); Magnesium 1.7 mg/dL (1.6-2.3); Non-African American GFR(MDRD) >60 (>60 ml/min/1.73 sqM); Sodium 134 mmol/L (137-145)
[2017-01-05 05:24] LABS: Creatine Kinase MB 8.2 ng/mL (0.0-2.4); Troponin I 3.66 ng/mL (0.000-0.034)
[2017-01-05] MEDS ORDERED: Magnesium Replacement Protocol 1 EACH MISC MISCELLANE PRN (05:26)
[2017-01-05] MEDS: IPRATROPIUM-ALBUTEROL 3 ML NEB INHALATION PRN ×4 (07:04→19:55)
[2017-01-05] MEDS: MAGNESIUM SULFATE-D5W PMX 1 GM in DEXTROSE/WATER 1 100ML.BAG IVPB SCH ×2 (07:11→12:14)
--- NOTE | 2017-01-05 08:31 | XR ---
EXAMINATION TYPE: XR chest 1V DATE OF EXAM: 01/05/2017 COMPARISON: NONE HISTORY: Pulmonary edema TECHNIQUE: Single frontal view of the chest is obtained. FINDINGS: There is slight interval improvement in the now moderate bilateral pulmonary edema with en gorgement of the madhuri, likely related to vasculature although adenopathy or focal consolidation or po ssible. Cardiac silhouette is again enlarged. No pneumothorax. IMPRESSION: Slight interval improvement in the interstitial pulmonary edema, now moderate, and persi stent hilar enlargement.
[2017-01-05] MEDS ORDERED: predniSONE 10 MG TAB PO SCH ×2 (09:00)
[2017-01-05] MEDS: ATORVASTATIN 40 MG TAB PO SCH (09:23)
[2017-01-05] MEDS: ASPIRIN 325 MG TAB PO SCH (09:23)
--- NOTE | 2017-01-05 10:18 | CONS ---
76-year-old male patient who was just at the hospital and came back once again complaining of shortness of breath and chest pain which is worse taking a deep breath. He had also noted that he was febrile and he was coughing. He also stated that his defibrillator went off. Cardiology was consulted on account of shortness of breath and because of abnormal cardiac enzymes. His labs were reviewed. Sodium 134, potassium 4.0, kidney functions are normal. Troponin I was 1.3 followed by 3.6. his white count was normal but a leftward shift noted. Hemoglobin 16. He complains of shortness of breath. He does not have any chest discomfort at this time. Medication list was reviewed and documented in the chart. I do not see statins in there on his list and he is being started on statin. ALLERGIES: ADHESIVES, IODINE. REVIEW OF SYSTEMS: He has fever, no chills. No rigors. He does have a cough with expectoration. No nausea or vomiting, hematuria, dysuria. No recent stroke or seizures. 12 lead ECG showed sinus tachycardia with nonspecific ST-T abnormalities in lateral precordial leads. On examination, his blood pressure is 82/65 mmHg and 106/63 mmHg. Heart rate is in the 90s. Temperature 99.2 degrees. Breath sounds reduced bilaterally. Some crackles at the bases. Head and neck examination is normal. Heart sounds S1, S1 soft, extremities warm and no edema. IMPRESSION : 1. Morbid obesity. 2. Abnormal cardiac enzymes. 3. Acute myocardial injury. 4. Chronic systolic dysfunction with congestive heart failure. 5. Past history of ventricular tachycardia. 6. Presents at this time with shortness of breath, cough, pleuritic chest discomfort. Pulmonary medicine is evaluating for pulmonary embolism. For management of his pulmonary issues per internal medicine and pulmonary medicine. From a cardiac standpoint, I will start him on a statin. I will continue Sotalol as long as his blood pressure is above 90 mmHg. I will also get ICD interrogated today. At this time, there are no plans to revise the ICD as previously discussed. This man has other medical issues going on right now and it may be more prudent to turn off the ICD. DO NOT RESUSCITATE status should be considered. MTDD
[2017-01-05 10:26] LABS: Creatine Kinase MB 6.9 ng/mL (0.0-2.4); Troponin I 3.74 ng/mL (0.000-0.034)
[2017-01-05] MEDS: SOTALOL 80 MG TAB PO SCH ×2 (11:47→22:07)
[2017-01-05] MEDS ORDERED: SODIUM CHLORIDE 0.9% 500 ML IV ONE (11:57)
[2017-01-05] MEDS ORDERED: SOTALOL 80 MG TAB PO SCH (12:00)
[2017-01-05] MEDS ORDERED: [UNRECOGNIZED DRUG - OTHER] PO SCH (12:00)
[2017-01-05] MEDS: methylPREDNISolone SOD SUCCI 40 MG/ML 1 ML VIAL IV SCH ×2 (12:15→16:55)
[2017-01-05] MEDS ORDERED: NOREPINEPHRIN 4 MG-0.9% NS PMX 4 MG/250 ML ML IV SCH (13:30)
[2017-01-05 14:54] LABS: Glucose,Whole Blood 159 mg/dL (75-99)
[2017-01-05] MEDS: ACETAMINOPHEN TAB 325 MG TAB PO PRN (14:58)
--- NOTE | 2017-01-05 15:15 | NM ---
EXAMINATION TYPE: NM pul vent and perfuse DATE OF EXAM: 01/05/2017 COMPARISON: Chest x-ray 01/05/2017 HISTORY: Shortness of breath TECHNIQUE: Utilizing inhalation of 64.8 mCi Tc 99m DTPA aerosol and intravenous injection of 5.24 mC i of Tc 99m MAA, ventilation and perfusion images are acquired post injection in multiple projections . FINDINGS: Size markedly limited due to clumping of radiotracer likely related to COPD. There is a large matched defect within the right lung anteriorly within the upper lobe. Additional smaller matched defects ar e seen. Matched defect in the left lower lobe also noted. This is a triple match with corresponding x -ray abnormality. IMPRESSION: Markedly limited exam due to technical factors as discussed above. Likely secondary to chronic obstru ctive pulmonary disease. Findings are suggestive of an intermediate probability for pulmonary embolis m. Report called to the ICU.
[2017-01-05 16:34] LABS: ABG Base Excess 7.6 mmol/L; ABG HCO3 32 mmol/L (21-25); ABG PCO2 46 mmHg (35-45); ABG PH 7.45 (7.35-7.45); ABG PO2 82 mmHg (83-108); ABG TCO2 33 mmol/L (19-24)
[2017-01-05 18:35] LABS: Hemoglobin A1C 5.9 % (4.2-6.1)
[2017-01-05] MEDS: BUDESONIDE 0.5 MG/2 ML NEBU INHALATION SCH (20:04)
[2017-01-05] MEDS: CLOPIDOGREL 75 MG TAB PO SCH (22:06)
[2017-01-05] MEDS: cefTRIAXone 2,000 MG in SODIUM CHLORIDE 0.9% 100 ML IVPB SCH (22:06)
[2017-01-06] MEDS: methylPREDNISolone SOD SUCCI 40 MG/ML 1 ML VIAL IV SCH ×4 (00:15→23:53)
[2017-01-06] MEDS ORDERED: LISINOPRIL 2.5 MG TAB PO SCH (04:00)
[2017-01-06] MEDS ORDERED: CLOPIDOGREL 75 MG TAB PO SCH (04:00)
[2017-01-06] MEDS ORDERED: NON-FORMULARY DRUG (Glucosam/Chon-Msm1/C/Mang/Bosw [Glucosamine-Chondroitin Tablet] 1 TAB) PO SCH (04:00)
[2017-01-06 05:39] LABS: Basophils % (A) 0 %; CH 30.8; CHCM 31.7; Eosinophils % (A) 0 %; HCT 47.9 % (39.0-53.0); HDW 2.28; HGB 14.6 gm/dL (13.0-17.5); Luc # (Auto) 0.05; Luc % (Auto) 1; Lymphocytes # (A) 0.6 k/uL (1.0-4.8); Lymphocytes % (A) 8 %; MCH 29.7 pg (25.0-35.0); MCHC 30.4 g/dL (31.0-37.0); MCV 97.5 fL (80.0-100.0); Mean Platelet Volume 7.5; Monocytes # (A) 0.5 k/uL (0-1.0); Monocytes % (A) 6 %; Neutrophils # (A) 6.7 k/uL (1.3-7.7); Neutrophils % (A) 86 %; RBC 4.91 m/uL (4.30-5.90); RDW 15.4 % (11.5-15.5); WBC 7.9 k/uL (3.8-10.6); WBC (Perox) 7.46
[2017-01-06] MEDS: IPRATROPIUM-ALBUTEROL 3 ML NEB INHALATION PRN ×4 (07:15→20:40)
[2017-01-06] MEDS: BUDESONIDE 0.5 MG/2 ML NEBU INHALATION SCH ×2 (07:15→20:40)
[2017-01-06 07:20] LABS: ALT 45 U/L (21-72); AST 45 U/L (17-59); Alkaline Phosphatase 93 U/L (38-126); Anion Gap 6 mmol/L; Blood Urea Nitrogen 27 mg/dL (9-20); Calcium 8.6 mg/dL (8.4-10.2); Carbon Dioxide 34 mmol/L (22-30); Chloride 97 mmol/L (98-107); Glucose 173 mg/dL (74-99); Magnesium 1.7 mg/dL (1.6-2.3); Non-African American GFR(MDRD) >60 (>60 ml/min/1.73 sqM); Potassium 3.9 mmol/L (3.5-5.1); Sodium 137 mmol/L (137-145); Total Bilirubin 0.3 mg/dL (0.2-1.3); Total Protein 5.5 g/dL (6.3-8.2)
[2017-01-06] MEDS: ATORVASTATIN 40 MG TAB PO SCH (08:09)
[2017-01-06] MEDS: ASPIRIN 325 MG TAB PO SCH (08:09)
--- NOTE | 2017-01-06 08:13 | XR ---
EXAMINATION TYPE: XR chest 1V DATE OF EXAM: 01/06/2017 COMPARISON: NONE HISTORY: Shortness of breath TECHNIQUE: Single frontal view of the chest is obtained. FINDINGS: There is slight interval improvement in the now moderate bilateral pulmonary edema with en gorgement of the madhuri, likely related to vasculature although adenopathy or focal consolidation or po ssible. Cardiac silhouette is again enlarged. No pneumothorax. The heart is enlarged and there is prominence of the right hilum. Patient is rotated. IMPRESSION: 1. Persistent interstitial pattern. Correlate for pulmonary fibrosis. Pulmonary arterial prominence s uggestive of arterial hypertension with a more nodular pattern within the right perihilar region whic h may represent underlying adenopathy. Subsegmental areas of consolidation are stable.
--- NOTE | 2017-01-06 09:00 | P.PN ---
Subjective Principal diagnosis: Patient seen and evaluated and examined during the rounds and ICU care plan discussed with the primary service as well as the patient and staff at length still have thick purulent sputum coming get short of breath with minimal activity and exertion he does have clear audible wheezing, the sputum is very thick tenacious and green to brown in color, he is status post echocardiogram results are pending, preliminary culture so far shows no growth, his levo fed is gradually being tapered down currently is on 1 Fidel of levo he has a arterial line in the left wrist Objective - Vital Signs Vital signs: Vital Signs Temp 96.4 F L 01/06/17 08:00 Pulse 82 01/06/17 08:00 Resp 37 H 01/06/17 08:00 BP 82/52 01/05/17 19:00 Pulse Ox 90 L 01/06/17 08:00 Intake & Output 01/05/17 01/06/17 01/06/17 18:59 06:59 18:59 Intake Total 1594.127 588.686 34.375 Output Total 605 795 160 Balance 989.127 -206.314 -125.625 Weight 124.7 kg 126.2 kg Intake: IV 415 120 30 Sodium Chloride 0.9% 1, 415 120 30 000 ml @ 75 mls/hr IV . [id number] [facility] Rx#:[id number] Intake, IV Titration 859.127 468.686 4.375 Amount Heparin Sodium,Porcine/ 154.814 425.436 D5w Pmx 25,000 unit In Dextrose/Water 1 500ml. bag @ 8.1 UNITS/KG/HR 20. 2 mls/hr IV .Q24H [facility] Rx# :[id number] Magnesium Sulfate-D5w Pmx 100 1 gm In Dextrose/Water 1 100ml.bag @ 100 mls/hr IVPB Q1H [facility] Rx#: [id number] Norepinephrin 4 mg-0.9% 104.313 43.25 4.375 Ns Pmx 4 mg In 250 ml @ Titrate IV .Q0M [facility] Rx#: [id number] Sodium Chloride 0.9% 500 500 ml @ 999 mls/hr IV .Q31M [facility] Rx#:[id number] Oral 320 Output: Urine 605 795 160 Other: Voiding Method Indwelling Catheter Indwelling Catheter ABP, PAP, CO, CI - Last Documented Arterial Blood Pressure 111/52 - Constitutional General appearance: Present: disheveled, mild distress, morbidly obese - EENT Eyes: Present: EOMI, PERRLA, normal appearance ENT: Present: hearing grossly normal, normal oropharynx Ears: bilateral: normal - Neck Neck: Present: normal ROM Carotids: bilateral: upstroke normal, bruit absent Thyroid: bilateral: normal size - Respiratory Respiratory: bilateral: rales (Basal crackles), rhonchi, wheezing, prolonged expiration - Cardiovascular Rhythm: regular Heart sounds: normal: S1, S2 - Peripheral edema ankle Peripheral Edema: bilateral: 1+ - Peripheral pulses posterior tibial Peripheral Pulses: bilateral: Normal radial pulse Peripheral Pulses: bilateral: Normal - Gastrointestinal General gastrointestinal: Present: decreased bowel sounds, distended, soft - Integumentary Integumentary: Present: normal, normal turgor - Neurologic Neurologic: Present: CNII-XII intact - Musculoskeletal Musculoskeletal: Present: generalized weakness, strength equal bilaterally - Psychiatric Psychiatric: Present: A&O x's 3, appropriate affect, intact judgment & insight - Allied health notes Allied health notes reviewed: nursing - Labs CBC & Chem 7: 01/06/17 05:00 01/06/17 05:00 Labs: Abnormal Lab Results - Last 24 Hours (Table) 01/05/17 01/05/17 01/05/17 Range/Units 08:55 11:41 14:51 MCHC (31.0-37.0) g/dL Lymphocytes # (1.0-4.8) k/uL APTT 38.3 H (22.0-30.0) sec ABG pCO2 (35-45) mmHg ABG pO2 (83-108) mmHg ABG HCO3 (21-25) mmol/L ABG Total CO2 (19-24) mmol/L Chloride (98-107) mmol/L Carbon Dioxide (22-30) mmol/L BUN (9-20) mg/dL Creatinine (0.66-1.25) mg/dL Glucose (74-99) mg/dL POC Glucose (mg/dL) 159 H (75-99) mg/dL CK-MB (CK-2) 6.9 H* (0.0-2.4) ng/mL Troponin I 3.740 H* (0.000-0.034) ng/mL Total Protein (6.3-8.2) g/dL Albumin (3.5-5.0) g/dL 01/05/17 01/05/17 01/05/17 Range/Units 16:28 17:53 23:30 MCHC (31.0-37.0) g/dL Lymphocytes # (1.0-4.8) k/uL APTT 39.6 H 153.9 H* (22.0-30.0) sec ABG pCO2 46 H (35-45) mmHg ABG pO2 82 L (83-108) mmHg ABG HCO3 32 H (21-25) mmol/L ABG Total CO2 33 H (19-24) mmol/L Chloride (98-107) mmol/L Carbon Dioxide (22-30) mmol/L BUN (9-20) mg/dL Creatinine (0.66-1.25) mg/dL Glucose (74-99) mg/dL POC Glucose (mg/dL) (75-99) mg/dL CK-MB (CK-2) (0.0-2.4) ng/mL Troponin I (0.000-0.034) ng/mL Total Protein (6.3-8.2) g/dL Albumin (3.5-5.0) g/dL 01/06/17 01/06/17 01/06/17 Range/Units 05:00 05:00 05:00 MCHC 30.4 L (31.0-37.0) g/dL Lymphocytes # 0.6 L (1.0-4.8) k/uL APTT 98.2 H* (22.0-30.0) sec ABG pCO2 (35-45) mmHg ABG pO2 (83-108) mmHg ABG HCO3 (21-25) mmol/L ABG Total CO2 (19-24) mmol/L Chloride 97 L (98-107) mmol/L Carbon Dioxide 34 H (22-30) mmol/L BUN 27 H (9-20) mg/dL Creatinine 0.55 L (0.66-1.25) mg/dL Glucose 173 H (74-99) mg/dL POC Glucose (mg/dL) (75-99) mg/dL CK-MB (CK-2) (0.0-2.4) ng/mL Troponin I (0.000-0.034) ng/mL Total Protein 5.5 L (6.3-8.2) g/dL Albumin 2.8 L (3.5-5.0) g/dL Microbiology - Last 24 Hours (Table) 01/05/17 15:04 Gram Stain - Preliminary Sputum 01/04/17 21:29 Blood Culture - Preliminary Blood No Growth after 24 hours 01/04/17 23:00 Urine Culture - Preliminary Urine,Clean Catch - Imaging and Cardiology Chest x-ray: report reviewed, image reviewed (Chest x-ray revealed presence of the interstitial Petrin likely pulmonary fibrosis along with lymphadenopathy likely in the hilar area interstitial pneumonia cannot be excluded) Assessment and Plan Plan: Acute hypoxic restrictive failure Bilateral interstitial pneumonia Cardiomyopathy congestive heart failure 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 Arrhythmia with recurrent shocks from the AICD Severe morbid obesity and likely obstructive sleep apnea Severe sepsis and septic shock related to multifactorial process Overall plan is to continue continue to gently rehydrate the patient follow up on culture results and report continue IV steroids breathing treatment continue vasopressors and titrate as tolerated, will keep patient in ICU follow up on echocardiogram report, critical care time spent 35 minutes Time with Patient: Greater than 30
[2017-01-06] MEDS: SOTALOL 80 MG TAB PO SCH ×2 (10:02→23:52)
[2017-01-06] MEDS: ACETAMINOPHEN TAB 325 MG TAB PO PRN ×2 (10:25→19:29)
--- NOTE | 2017-01-06 10:43 | ECHOF ---
Referral Reason:acute [place] MEASUREMENTS -------- HEIGHT: 188.0 cm WEIGHT: 124.3 kg BP: 100/79 RVIDd: 4.7 cm (< 3.3) IVSd: 1.5 cm (0.6 - 1.1) LVIDd: 5.5 cm (3.9 - 5.3) LVPWd: 1.5 cm (0.6 - 1.1) IVSs: 2.0 cm LVIDs: 4.3 cm LVPWs: 1.8 cm LAESV Index (A-L): 32.15 ml/m Ao Diam: 3.5 cm (2.0 - 3.7) AV Cusp: 2.2 cm (1.5 - 2.6) LA Diam: 5.5 cm (2.7 - 3.8) MV EXCURSION: 16.486 mm (> 18.000) MV EF SLOPE: 56 mm/s (70 - 150) EPSS: 1.7 cm RAP: 5.00 mmHg RVSP: 16.89 mmHg FINDINGS -------- Sinus rhythm. This was a technically difficult study with suboptimal views. The left ventricle is mildly dilated. There is moderate concentric left ventricular hypertrophy. Overall left ventricular systolic function is moderate-severely impaired with, an EF between 30 - 35 %. The right ventricle is severely enlarged. LA is midly dilated 29-33ml/m2. The right atrium was not well visualized. 1.5mg of Definity was utilized for enhancement of images Aortic valve is trileaflet and is mildly thickened. There is no evidence of aortic regurgitation. There is no evidence of aortic stenosis. The mitral valve leaflets are mildly thickened. There is trace mitral regurgitation. Trace tricuspid regurgitation present. There is no evidence of pulmonary hypertension. The right ventricular systolic pressure, as measured by Doppler, is 16.89mmHg. The pulmonic valve was not well visualized. The aortic root size is normal. IVC Not well visulized. The pericardium is normal. There is no pericardial effusion. CONCLUSIONS -------- 1. Sinus rhythm. 2. Aortic valve is trileaflet and is mildly thickened. 3. The mitral valve leaflets are mildly thickened. 4. There is trace mitral regurgitation. 5. Trace tricuspid regurgitation present. 6. There is no evidence of pulmonary hypertension. 7. The right ventricular systolic pressure, as measured by Doppler, is 16.89mmHg. 8. The pulmonic valve was not well visualized. 9. The aortic root size is normal. 10. IVC Not well visulized. 11. There is no pericardial effusion. 12. This was a technically difficult study with suboptimal views. 13. The left ventricle is mildly dilated. 14. There is moderate concentric left ventricular hypertrophy. 15. Overall left ventricular systolic function is moderate-severely impaired with, an EF between 30 - 35 %. 16. The right ventricle is severely enlarged. 17. LA is midly dilated 29-33ml/m2. 18. The right atrium was not well visualized. 19. 1.5mg of Definity was utilized for enhancement of images SHIRT HEMMER: Tyler Spear RDCS
--- NOTE | 2017-01-06 10:46 | HP ---
CHIEF COMPLAINT: A 76-year-old white male who presents with pacemaker, AICD, misfire x3 at home, significant shortness of breath and was brought to the hospital with elevated cardiac enzymes and shortness of breath. Troponin was 1.3 followed by 3.6. White count had left shift. Hemoglobin was 16. Shortness of breath. Showed possible bilateral pneumonia. ALLERGIES: ADHESIVES AND IODINE. REVIEW OF SYSTEMS: Significant cough, congestion, shortness of breath, dyspnea with exertion, worsening since he has been home. Fourteen point review of systems negative other than that. Labs are reviewed. Blood pressure is 80s to 106 systolic over 50 to 60s. CARDIOVASCULAR: S1, S2. LUNGS: Transmitted upper airway sounds. Scattered wheeze x 4. Rhonchi x4. NEUROLOGIC: Alert and oriented x3. : No suprapubic tenderness. HEMATOLOGIC: Negative Homans. OPHTHALMOLOGIC: Pupils equal, round and reactive to light and accommodation. VASCULAR: Normal dorsalis pedis, posterior tibial and radial pulse. ASSESSMENT: 1. Acute myocardial injury, abnormal cardiac enzymes. 2. Morbid obesity. 3. Chronic systolic heart failure. 4. Acute congestive heart failure. 5. Past history of ventricular tachycardia. 6. AICD x3, misfire x3. AICD will be re-evaluated, possible discharge, to follow up as an outpatient. Possibly turn off AICD versus move it around. Do not resuscitate status should be considered, but Cardiology will reassess that with the patient and possibly fix AICD that was supposed to be done on last admission. MTDD
[2017-01-06 12:17] LABS: Glucose,Whole Blood 197 mg/dL (75-99)
[2017-01-06] MEDS: INSULIN LISPRO (humaLOG) 300 UNIT/3 ML VIAL SQ SCH ×2 (13:08→21:00)
--- NOTE | 2017-01-06 13:41 | P.PN ---
Subjective Patient is short of breath. His blood pressure is low he is on pressors low- dose Yesterday I turned off his ICD because of inappropriate sensing and inappropriate ICD shocks and I spoke to his son about it and he agrees Denies chest discomfort Respirations 30 per minute, pulse rate in the 80s and 90s, blood pressure 111 and his mercury on low-dose norepinephrine breath sounds are reduced bilaterally bilateral crackles at the bases Heart sounds are normal Abdomen is soft Impression Severe heart failure, systolic Acute and chronic Non-Q wave DE Inappropriate ICD shocks Cardiac shock, on pressors I discussed this with the son. His prognosis is very poor Medical treatment recommended stop IV heparin start oral amiodarone Objective - Vital Signs Vital signs: Vital Signs Temp 98.1 F 01/06/17 11:00 Pulse 93 01/06/17 13:00 Resp 29 H 01/06/17 13:00 BP 82/52 01/05/17 19:00 Pulse Ox 90 L 01/06/17 13:00 Intake & Output 01/05/17 01/06/17 01/06/17 18:59 06:59 18:59 Intake Total 1594.127 588.686 134.625 Output Total 605 795 530 Balance 989.127 -206.314 -395.375 Weight 124.7 kg 126.2 kg 126.2 kg Intake: IV 415 120 110 0.9 at 20 ml/hr 40 Sodium Chloride 0.9% 1, 415 120 70 000 ml @ 75 mls/hr IV . [id number] [facility] Rx#:[id number] Intake, IV Titration 859.127 468.686 24.625 Amount Heparin Sodium,Porcine/ 154.814 425.436 0 D5w Pmx 25,000 unit In Dextrose/Water 1 500ml. bag @ 8.1 UNITS/KG/HR 20. 2 mls/hr IV .Q24H [facility] Rx# :[id number] Magnesium Sulfate-D5w Pmx 100 1 gm In Dextrose/Water 1 100ml.bag @ 100 mls/hr IVPB Q1H [facility] Rx#: [id number] Norepinephrin 4 mg-0.9% 104.313 43.25 24.625 Ns Pmx 4 mg In 250 ml @ Titrate IV .Q0M [facility] Rx#: [id number] Sodium Chloride 0.9% 500 500 ml @ 999 mls/hr IV .Q31M [facility] Rx#:[id number] Oral 320 Output: Urine 605 795 530 Other: Voiding Method Indwelling Catheter Indwelling Catheter Indwelling Catheter ABP, PAP, CO, CI - Last Documented Arterial Blood Pressure 111/52 - Labs CBC & Chem 7: 01/06/17 05:00 01/06/17 05:00 Labs: Abnormal Lab Results - Last 24 Hours (Table) 01/05/17 01/05/17 01/05/17 Range/Units 14:51 16:28 17:53 MCHC (31.0-37.0) g/dL Lymphocytes # (1.0-4.8) k/uL APTT 39.6 H (22.0-30.0) sec ABG pCO2 46 H (35-45) mmHg ABG pO2 82 L (83-108) mmHg ABG HCO3 32 H (21-25) mmol/L ABG Total CO2 33 H (19-24) mmol/L Chloride (98-107) mmol/L Carbon Dioxide (22-30) mmol/L BUN (9-20) mg/dL Creatinine (0.66-1.25) mg/dL Glucose (74-99) mg/dL POC Glucose (mg/dL) 159 H (75-99) mg/dL Total Protein (6.3-8.2) g/dL Albumin (3.5-5.0) g/dL 01/05/17 01/06/17 01/06/17 Range/Units 23:30 05:00 05:00 MCHC 30.4 L (31.0-37.0) g/dL Lymphocytes # 0.6 L (1.0-4.8) k/uL APTT 153.9 H* (22.0-30.0) sec ABG pCO2 (35-45) mmHg ABG pO2 (83-108) mmHg ABG HCO3 (21-25) mmol/L ABG Total CO2 (19-24) mmol/L Chloride 97 L (98-107) mmol/L Carbon Dioxide 34 H (22-30) mmol/L BUN 27 H (9-20) mg/dL Creatinine 0.55 L (0.66-1.25) mg/dL Glucose 173 H (74-99) mg/dL POC Glucose (mg/dL) (75-99) mg/dL Total Protein 5.5 L (6.3-8.2) g/dL Albumin 2.8 L (3.5-5.0) g/dL 01/06/17 01/06/17 01/06/17 Range/Units 05:00 12:16 12:48 MCHC (31.0-37.0) g/dL Lymphocytes # (1.0-4.8) k/uL APTT 98.2 H* 58.3 H (22.0-30.0) sec ABG pCO2 (35-45) mmHg ABG pO2 (83-108) mmHg ABG HCO3 (21-25) mmol/L ABG Total CO2 (19-24) mmol/L Chloride (98-107) mmol/L Carbon Dioxide (22-30) mmol/L BUN (9-20) mg/dL Creatinine (0.66-1.25) mg/dL Glucose (74-99) mg/dL POC Glucose (mg/dL) 197 H (75-99) mg/dL Total Protein (6.3-8.2) g/dL Albumin (3.5-5.0) g/dL Microbiology - Last 24 Hours (Table) 01/05/17 15:04 Gram Stain - Preliminary Sputum 01/04/17 21:29 Blood Culture - Preliminary Blood No Growth after 24 hours 01/04/17 23:00 Urine Culture - Preliminary Urine,Clean Catch
[2017-01-06] MEDS: AMIODARONE 200 MG TAB PO SCH (14:33)
--- NOTE | 2017-01-06 15:37 | P.PCN ---
Date of Procedure: 01/05/17 Preoperative Diagnosis: Severe hypertension Postoperative Diagnosis: Acute UT and severe hypertension Procedure(s) Performed: Left radial arterial line placement Implants: Anesthesia: local Surgeon: Herman Cornell Estimated Blood Loss (ml): 5 Pathology: none sent Condition: stable Disposition: ICU Indications for Procedure: As above Operative Findings: As below Description of Procedure: Patient prepared and draped in the usual fashion heparin drip was stopped prior to the procedure informed consent obtained from the patient and family at length procedure is complication has been explained to them. Using a modified Seldinger technique single-lumen catheter inserted into the left radial artery without any difficulty patient tolerated the procedure well no complication noted good waveform, secured with #3 silk
[2017-01-06 17:24] LABS: Glucose,Whole Blood 114 mg/dL (75-99)
[2017-01-06] MEDS: GLUCOSAMINE PO SCH (17:48)
[2017-01-06] MEDS: cefTRIAXone 2,000 MG in SODIUM CHLORIDE 0.9% 100 ML IVPB SCH (21:00)
[2017-01-06 21:05] LABS: Glucose,Whole Blood 178 mg/dL (75-99)
[2017-01-06] MEDS: CLOPIDOGREL 75 MG TAB PO SCH (23:52)
[2017-01-07 05:40] LABS: Basophils % (A) 0 %; CH 30.6; CHCM 30.8; Eosinophils % (A) 0 %; HCT 48.7 % (39.0-53.0); HGB 14.6 gm/dL (13.0-17.5); Hypochromasia Slight; Luc # (Auto) 0.09; Luc % (Auto) 1; Lymphocytes # (A) 0.5 k/uL (1.0-4.8); Lymphocytes % (A) 4 %; MCH 29.9 pg (25.0-35.0); MCV 99.8 fL (80.0-100.0); Macrocytosis Slight; Mean Platelet Volume 7.6; Monocytes # (A) 0.6 k/uL (0-1.0); Monocytes % (A) 5 %; Neutrophils # (A) 10.4 k/uL (1.3-7.7); Neutrophils % (A) 90 %; RBC 4.88 m/uL (4.30-5.90); RDW 15.1 % (11.5-15.5); WBC 11.5 k/uL (3.8-10.6); WBC (Perox) 11.09
[2017-01-07 05:47] LABS: Anion Gap 4 mmol/L; Blood Urea Nitrogen 31 mg/dL (9-20); Calcium 8.7 mg/dL (8.4-10.2); Carbon Dioxide 34 mmol/L (22-30); Chloride 99 mmol/L (98-107); Glucose 169 mg/dL (74-99); Magnesium 1.7 mg/dL (1.6-2.3); Non-African American GFR(MDRD) >60 (>60 ml/min/1.73 sqM); Phosphorous 3.1 mg/dL (2.5-4.5); Potassium 4.5 mmol/L (3.5-5.1); Sodium 137 mmol/L (137-145)
[2017-01-07] MEDS: BUDESONIDE 0.5 MG/2 ML NEBU INHALATION SCH ×2 (07:23→19:41)
[2017-01-07] MEDS: IPRATROPIUM-ALBUTEROL 3 ML NEB INHALATION PRN ×4 (07:23→19:41)
[2017-01-07 07:42] LABS: Glucose,Whole Blood 122 mg/dL (75-99)
--- NOTE | 2017-01-07 07:57 | XR ---
EXAMINATION TYPE: XR chest 1V DATE OF EXAM: 01/07/2017 HISTORY: Shortness of breath. COMPARISON: January 06, 2017 TECHNIQUE: Single view of the chest is submitted. FINDINGS: Demonstrated are scattered senescent parenchymal change. Mixed interstitial and alveolar infiltrates throughout both lung sahu greatest about the right kellie hilar region. Continued cardiomegaly and pulmonary venous congestion. Hilar and mediastinal structures are within normal limits. Degenerative changes are seen of the dorsal spine. IMPRESSION: 1. Stable chest which may reflect changes of pulmonary edema. Underlying infiltrates of other etiolo gy not excluded. Follow-up until resolution advised.
[2017-01-07] MEDS: MAGNESIUM SULFATE-D5W PMX 1 GM in DEXTROSE/WATER 1 100ML.BAG IVPB SCH ×2 (08:06→11:05)
[2017-01-07] MEDS: methylPREDNISolone SOD SUCCI 40 MG/ML 1 ML VIAL IV SCH ×3 (08:07→23:50)
[2017-01-07] MEDS: AMIODARONE 200 MG TAB PO SCH (08:08)
[2017-01-07] MEDS: ASPIRIN 325 MG TAB PO SCH (08:09)
[2017-01-07] MEDS: ATORVASTATIN 40 MG TAB PO SCH (08:09)
[2017-01-07] MEDS: GLUCOSAMINE PO SCH ×2 (08:10→20:39)
[2017-01-07] MEDS: SOTALOL 80 MG TAB PO SCH ×2 (08:11→20:41)
[2017-01-07] MEDS: INSULIN LISPRO (humaLOG) 300 UNIT/3 ML VIAL SQ SCH ×4 (08:25→20:40)
--- NOTE | 2017-01-07 08:26 | CONS ---
DATE OF CONSULTATION: 01/05/17 REASON FOR CONSULT: Shortness of breath, hypertension, cough. HISTORY OF PRESENT ILLNESS: Mr. Huey Brasher is a 76 -year-old morbidly obese male with history of obstructive sleep apnea, pulmonary fibrosis, severe COPD emphysema. The patient has history of cardiomyopathy, chronic systolic heart failure, has a defibrillator which has been going on off and on. Cardiovascular service in the past has recommended to change the defibrillator, however, the patient declined. The patient, of note, has been hospitalized for an extended period of time and was just discharged one day prior to coming into the hospital. Due to repeated firing, increased shortness of breath and production of ( ) greenish sputum production, came into the emergency department where he was seen, evaluated and examined and admitted into the hospital. His past medical history is significant for pulmonary fibrosis, coronary artery disease, chronic systolic heart failure, hypertension, hypertensive cardiovascular disease, morbid obesity, history of prior pneumonia, severe chronic obstructive pulmonary disease, emphysema, chronic hypoxic respiratory failure. Past surgical history is significant for status post adenoidectomy, appendectomy and cardiac catheterization angiogram with stent placement, history of hernia repair, orthopedic surgery, status post tonsillectomy. Also has a history of left testicle removed, left little finger surgery, inguinal hernia repair bilaterally. Arthroscopic knee surgery, history of five stent placements. Bowel surgery for twisted bowel. Family history and social history: Used to smoke heavily one pack per day for about 40 to 45 years. Occasionally consumes alcohol. Denies any substance use. Family history and social history: Strong history of cardiovascular disease, diabetes and OH especially on the maternal side. Medications at home include: 1. Prednisone tapering dose. 2. Sotalol 40 mg po two times a day. 3. Multivitamins silver tablets. 4. Loratadine. 5. Lisinopril. 6. DuoNeb unit dose four times a day. 7. Hydrocortisone cream. 8. Glucosazone. 9. Plavix. 10. Pulmicort. 11. Ecotrin. Medications initiated in the hospital include: 1. Tylenol as needed. 2. DuoNeb four times a day. 3. Amiodarone 200 po daily. 4. Aspirin. 5. Lipitor. 6. Pulmicort. 7. Rocephin. 8. Plavix. 9. Humalog. 10. Solu-Medrol 40 q8. 11. Morphine for pain control. 12. Nitrostat. 13. Levophed drip. 14. Sotalol. Review of systems otherwise unremarkable and noncontributory. On examination, most recent vitals include: Blood pressure 150/66, respiratory rate 28, heart rate 110, temperature 100.5, saturation 95% on room air. HEENT: Atraumatic, Normocephalic. Pharynx is clear. Narrow pharyngeal opening is present. Neck is supple without lymphadenopathy, jugular venous distention or carotid bruit. Neck veins are prominent. Lungs bilateral coarse inspiratory and expiratory wheezing are present, basal crackles. Heart regular rate and rhythm, S1, S2 audible. Abdomen is soft. No rebound. Distended. Extremities +1 to 2 edema. Neurological examination awake. No focal deficits. IMPRESSION: 1. Acute hypoxic respiratory failure related to acute chronic obstructive pulmonary disease exacerbation and purulent tracheobronchitis. 2. Possible acute myocardial infarction. 3. Drop in blood pressure and severe hypertension. 4. Cardiomyopathy with chronic systolic heart failure. 5. History of pulmonary fibrosis. PLAN: The patient has been admitted to the hospital with initial fairly stable blood pressure. The patient had a drop in blood pressure as well as oxygenation. At that point, emergent A-line was placed. Heparin was held for a short period of time and subsequently resumed. Central line was not placed. During placement of A-line, the patients blood pressure did come up a little bit and anticipated that will come off the Levophed drip. Cardiovascular services on consult. X-ray and laboratory data reviewed. Will follow clinical course closely. Prognosis very guarded. MTDD
--- NOTE | 2017-01-07 09:01 | P.PN ---
Subjective Principal diagnosis: Patient seen and evaluated and examined during the rounds and ICU care plan discussed with the primary service as well as the patient and staff at length still have thick purulent sputum coming get short of breath with minimal activity and exertion he does have clear audible wheezing, the sputum is very thick tenacious and green to brown in color, he is status post echocardiogram results are pending, preliminary culture so far shows no growth, his levo fed is gradually being tapered down currently is on 1 Fidel of levo he has a arterial line in the left wrist Patient seen and evaluated examined on an ICU patient is now off of levoped drip he is awake and alert breathing comfortably is a line is not working very well, which is to be removed, remains short of breath, minimal activity and exertion does have thick. No sputum production culture results and we will reports are reviewed no obvious growth has been noted so far him a patient remains on breathing treatment and steroids seems to be responding well. I had a detailed discussion with the son at bedside yesterday and care plan discussed with him at length. Patient of note that has the AICD off his he is is still consistent on being a full code at this point of time, Objective - Vital Signs Vital signs: Vital Signs Temp 97 F L 01/07/17 04:00 Pulse 74 01/07/17 07:42 Resp 24 01/07/17 07:00 BP 103/61 01/07/17 07:00 Pulse Ox 95 01/07/17 07:26 Intake & Output 01/06/17 01/07/17 01/07/17 18:59 06:59 18:59 Intake Total 259.938 320 20 Output Total 1005 740 70 Balance -745.062 -420 -50 Weight 126.2 kg 127 kg Intake: IV 230 320 20 0.9 at 20 ml/hr 160 220 20 Sodium Chloride 0.9% 1, 70 000 ml @ 75 mls/hr IV . [id number] STA Rx#:[id number] cefTRIAXone 2,000 mg In 100 Sodium Chloride 0.9% 100 ml @ 100 mls/hr IVPB Q24H CAITLYN Rx#:[id number] Intake, IV Titration 29.938 Amount Heparin Sodium,Porcine/ 0 D5w Pmx 25,000 unit In Dextrose/Water 1 500ml. bag @ 8.1 UNITS/KG/HR 20. 2 mls/hr IV .Q24H CAITLYN Rx# :[id number] Norepinephrin 4 mg-0.9% 29.938 Ns Pmx 4 mg In 250 ml @ Titrate IV .Q0M CAITLYN Rx#: [id number] Output: Urine 1005 740 70 Other: Voiding Method Indwelling Catheter Indwelling Catheter ABP, PAP, CO, CI - Last Documented Arterial Blood Pressure 95/58 - Exam - Constitutional General appearance: Present: disheveled, mild distress, morbidly obese - EENT Eyes: Present: EOMI, PERRLA, normal appearance ENT: Present: hearing grossly normal, normal oropharynx Ears: bilateral: normal - Neck Neck: Present: normal ROM Carotids: bilateral: upstroke normal, bruit absent Thyroid: bilateral: normal size - Respiratory Respiratory: bilateral: rales (Basal crackles), rhonchi, wheezing, prolonged expiration - Cardiovascular Rhythm: regular Heart sounds: normal: S1, S2 - Peripheral edema ankle Peripheral Edema: bilateral: 1+ - Peripheral pulses posterior tibial Peripheral Pulses: bilateral: Normal radial pulse Peripheral Pulses: bilateral: Normal - Gastrointestinal General gastrointestinal: Present: decreased bowel sounds, distended, soft - Integumentary Integumentary: Present: normal, normal turgor - Neurologic Neurologic: Present: CNII-XII intact - Musculoskeletal Musculoskeletal: Present: generalized weakness, strength equal bilaterally - Psychiatric Psychiatric: Present: A&O x's 3, appropriate affect, intact judgment & insight - Labs CBC & Chem 7: 01/07/17 05:30 01/07/17 05:24 Labs: Abnormal Lab Results - Last 24 Hours (Table) 01/06/17 01/06/17 01/06/17 Range/Units 12:16 12:48 17:22 WBC (3.8-10.6) k/uL MCHC (31.0-37.0) g/dL Neutrophils # (1.3-7.7) k/uL Lymphocytes # (1.0-4.8) k/uL APTT 58.3 H (22.0-30.0) sec Carbon Dioxide (22-30) mmol/L BUN (9-20) mg/dL Creatinine (0.66-1.25) mg/dL Glucose (74-99) mg/dL POC Glucose (mg/dL) 197 H 114 H (75-99) mg/dL 01/06/17 01/07/17 01/07/17 Range/Units 21:02 05:24 05:30 WBC 11.5 H (3.8-10.6) k/uL MCHC 30.0 L (31.0-37.0) g/dL Neutrophils # 10.4 H (1.3-7.7) k/uL Lymphocytes # 0.5 L (1.0-4.8) k/uL APTT (22.0-30.0) sec Carbon Dioxide 34 H (22-30) mmol/L BUN 31 H (9-20) mg/dL Creatinine 0.60 L (0.66-1.25) mg/dL Glucose 169 H (74-99) mg/dL POC Glucose (mg/dL) 178 H (75-99) mg/dL 01/07/17 Range/Units 07:40 WBC (3.8-10.6) k/uL MCHC (31.0-37.0) g/dL Neutrophils # (1.3-7.7) k/uL Lymphocytes # (1.0-4.8) k/uL APTT (22.0-30.0) sec Carbon Dioxide (22-30) mmol/L BUN (9-20) mg/dL Creatinine (0.66-1.25) mg/dL Glucose (74-99) mg/dL POC Glucose (mg/dL) 122 H (75-99) mg/dL Microbiology - Last 24 Hours (Table) 01/04/17 21:29 Blood Culture - Preliminary Blood No Growth after 48 hours 01/04/17 23:00 Urine Culture - Final Urine,Clean Catch Assessment and Plan Plan: Acute hypoxic respiratory failure Bilateral interstitial pneumonia on top of pulmonary fibrosis Cardiomyopathy congestive heart failure 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, with ejection fraction of 35% Arrhythmia with recurrent shocks from the AICD Severe morbid obesity and likely obstructive sleep apnea Severe sepsis and septic shock related to multifactorial process Overall plan is to continue continue to gently rehydrate the patient follow up on culture results and report continue IV steroids breathing treatment continue to OBSERVE off of vasopressors and titrate as tolerated, will transfer patient out of ICU, follow up on echocardiogram report reviewed ejection fraction is only 30-35%, patient has multiple comorbidities including pulmonary fibrosis end -stage lung disease and likely obstructive sleep apnea with severe degree of cardiomyopathy acute on chronic systolic heart failure on top of that AICDs off patient has Placement of new AICD prognosis is very guarded, will continue to provide supportive care patient can be moved out of the ICU if remains stable later on today, critical care time spent 35 minutes Time with Patient: Greater than 30
--- NOTE | 2017-01-07 11:21 | CDI ---
In responding to this query, please exercise your independent professional judgment. The [facility] Coding Staff and Clinical Documentation Specialists appreciate your assistance in clarifying documentation, maintaining compliance with coding guidelines, accurately documenting patients condition and capturing severity of illness. The fact that a question is asked does not imply that any particular answer is desired or expected. Communication forms are a method of clarifying documentation and are not made part of the Legal Health Record. Thank you in advance for your clarification. Last Revision, August 2016 Ranjit [place] [address] [place] [address] Documentation Clarification Form Date: 01/07/2017 11:09:00 AM From: Jessica Contreras RN, CDS Admit Date: 01/04/2017 11:15:00 PM Patient Name: Huey Brasher Visit Number: [id number] Bita Alvarez NP-C / Dr. Alan Otero, 76 year old patient admitted for worsening shortness of breath and chest pain. Had AICD shocks x 3, white count had left shift. Patient became hypotensive placed on Levophed in ICU. CCU/Pulmonary documented on 01/06 severe sepsis and septic shock. History/Risk Factors: CAD, HTN, Angina, CA, home O2, AICD Clinical Indicators: VS: 100.5 111 28 150/66 85 BP 89/46 on 01/06, Respiratory failure, ABG: pco2 46 po2 82 hco3 32 Treatment: ICU, Pulmonary consult, Cardiology consult, Levophed infusion, A- line insert, IV Rocephin, In your professional opinion, please clarify if these findings signify one of the following conditions, whether the condition is POA, and cause, if known: Severe Sepsis with Septic shock Sepsis Sepsis, ruled out Septic Shock Unable to determine Other, please specify Present on Admission: Yes No * Identify the (suspected) organism * Link or clarify if there is associated (due to/with): - Organ failure - Shock SIRS Criteria: 2 or more of the following may indicate SIRS Temperature < 96.8F(36C) or > 101.0F (38C) Heart Rate > 90 bpm Respiratory Rate > 20 breaths/min or PaCO2 < 32 mmHg White Blood Cell Count > 12,000 or < 4,000 cells/mm3 or > 10% bands Lactate >2.0 mmol/L (>4.0 is equivalent to septic shock) Please document in your progress notes and discharge summary in order to capture severity of illness and risk of mortality. Include clinical findings that support your diagnosis. FYI: Press F11 to launch patient chart. Thank you. MARIA ESTHER
--- NOTE | 2017-01-07 11:38 | CDI ---
In responding to this query, please exercise your independent professional judgment. The [facility] Coding Staff and Clinical Documentation Specialists appreciate your assistance in clarifying documentation, maintaining compliance with coding guidelines, accurately documenting patients condition and capturing severity of illness. The fact that a question is asked does not imply that any particular answer is desired or expected. Communication forms are a method of clarifying documentation and are not made part of the Legal Health Record. Thank you in advance for your clarification. Last Revision, July 2015 Ranjit [place] [address] [place] [address] Documentation Clarification Form Date: 01/07/2017 11:22:00 AM From: Jessica Contreras RN, CDS Admit Date: 01/04/2017 11:15:00 PM Patient Name: Huey Brasher Visit Number: [id number] Bita BHANDARIC / Dr. Alan Otero, 76 year old patient admitted for worsening shortness of breath and chest pain. Had AICD shocks x 3. "Acute myocardial injury" documented in H&P. "Possible acute AL" documented in ICU/PULM consult note. Echo done on 01/05 for "acute mi" Patient History/Risk Factors: CAD, Angina, Asthma, AICD delivered 3 shocks, Acute on chronic Systolic and Diastolic CHF, Clinical Indicators: TROP: 1.320-3.660-3.740; EKG Sinus Tachycardia inferior infarct age undetermined, rate 109, VS: 100.5 111 28 150/66 85 Treatment: Heparin infusion on admission, Cardiology consult, Echo, EKG, ICU admit, O2, Serial enzymes, In order to capture the severity of condition and necessary documentation specificity, please clarify: Acute AL (please specify STEMI or NSTEMI) Acute Myocardial Injury Unable to determine Other Condition, please specify Episode of Care: Initial Episode Subsequent Episode Unable to determine Other, please specify Age of infarction if known Acute AL (within the last 4 weeks) Subsequent AL (another AL within 4 weeks) New Acute AL - (another AL after 4 weeks) Old AL (AL more than 4 weeks old) Specific date if known: Unable to determine Site of myocardial injury, if known: Anterior wall Inferior wall Lateral wall Posterior wall Septal wall Other, please specify Unable to determine Coronary artery involved, if known: Right Coronary Artery Acute Marginal Artery Right Posterior Descending Artery Left Coronary Artery Left Anterior Descending Artery Left Circumflex Artery Other, please specify Unable to determine Please document in your progress notes and discharge summary in order to capture severity of illness and risk of mortality. Include clinical findings that support your diagnosis. FYI: Press F11 to launch patient chart Thank you. MARIA ESTHER
[2017-01-07 12:29] LABS: Glucose,Whole Blood 197 mg/dL (75-99)
--- NOTE | 2017-01-07 13:03 | PN ---
ICU time 30 minutes. CHIEF COMPLAINT: 76 -year-old white male remains on low dose vasopressors. AICD is turned off due to inappropriate shocks at home. Cardiology was consulted and talked to the family about severe heart failure, acute non-Q wave MS, inappropriate ICD shocks, cardiac shock, COPD exacerbation, hypertension, pulmonary hypertension. They started oral ( ) today. Lungs showed scattered wheeze times four. Cardiovascular: Heart S1, and S2. Abdomen is distended, obese. Extremities: No cyanosis, clubbing or edema. Plan will be to for: ASSESSMENT/PLAN: 1. Severe heart failure and chronic obstructive pulmonary disease will be to start ( ) for cardiac arrhythmia. AICD as mentioned has been discontinued. 2. Moderate protein calorie malnutrition. 3. ( ) renal insufficiency. 4. Bilateral interstitial pneumonia. 5. Cardiomyopathy. 6. Cardiac arrhythmia. 7. ( ). 8. Severe sepsis due to septic shock related to pneumonia. 9. Rehydrate. Continue with IV steroids. 10. Updrafts. 11. IV antibiotics. 12. See further orders on chart. ICU time: 40 minutes. MTDD
[2017-01-07 17:12] LABS: Glucose,Whole Blood 147 mg/dL (75-99)
[2017-01-07 20:40] LABS: Glucose,Whole Blood 156 mg/dL (75-99)
[2017-01-07] MEDS: cefTRIAXone 2,000 MG in SODIUM CHLORIDE 0.9% 100 ML IVPB SCH (20:40)
[2017-01-07] MEDS: CLOPIDOGREL 75 MG TAB PO SCH (20:40)
[2017-01-08] MEDS ORDERED: MENTHOL (NICE) LOZENGE MUCOUS MEM PRN (02:33)
[2017-01-08 06:54] LABS: Basophils % (A) 0 %; CH 30.6; CHCM 30.6; Eosinophils % (A) 0 %; HCT 48.2 % (39.0-53.0); HDW 2.34; HGB 14.4 gm/dL (13.0-17.5); Hypochromasia Slight; Luc # (Auto) 0.11; Luc % (Auto) 1; Lymphocytes # (A) 0.5 k/uL (1.0-4.8); Lymphocytes % (A) 4 %; MCHC 29.9 g/dL (31.0-37.0); MCV 100.5 fL (80.0-100.0); Macrocytosis Slight; Mean Platelet Volume 7.6; Monocytes # (A) 0.6 k/uL (0-1.0); Monocytes % (A) 5 %; Neutrophils # (A) 10.7 k/uL (1.3-7.7); Neutrophils % (A) 90 %; RBC 4.79 m/uL (4.30-5.90); RDW 15.5 % (11.5-15.5); WBC 11.9 k/uL (3.8-10.6); WBC (Perox) 11.77
[2017-01-08 07:38] LABS: Glucose,Whole Blood 136 mg/dL (75-99)
[2017-01-08 07:46] LABS: Anion Gap 6 mmol/L; Blood Urea Nitrogen 23 mg/dL (9-20); Calcium 8.4 mg/dL (8.4-10.2); Carbon Dioxide 33 mmol/L (22-30); Chloride 99 mmol/L (98-107); Glucose 167 mg/dL (74-99); Magnesium 1.8 mg/dL (1.6-2.3); Non-African American GFR(MDRD) >60 (>60 ml/min/1.73 sqM); Potassium 4.2 mmol/L (3.5-5.1); Sodium 138 mmol/L (137-145)
[2017-01-08] MEDS: IPRATROPIUM-ALBUTEROL 3 ML NEB INHALATION PRN ×3 (08:19→20:41)
[2017-01-08] MEDS: BUDESONIDE 0.5 MG/2 ML NEBU INHALATION SCH ×2 (08:19→20:41)
[2017-01-08] MEDS: INSULIN LISPRO (humaLOG) 300 UNIT/3 ML VIAL SQ SCH ×4 (08:57→21:11)
[2017-01-08] MEDS: methylPREDNISolone SOD SUCCI 40 MG/ML 1 ML VIAL IV SCH ×3 (08:58→23:01)
[2017-01-08] MEDS: ASPIRIN 325 MG TAB PO SCH (08:58)
[2017-01-08] MEDS: SOTALOL 80 MG TAB PO SCH ×2 (08:59→20:31)
[2017-01-08] MEDS: GLUCOSAMINE PO SCH ×2 (08:59→20:32)
[2017-01-08] MEDS: AMIODARONE 200 MG TAB PO SCH (09:00)
[2017-01-08] MEDS: ATORVASTATIN 40 MG TAB PO SCH (09:00)
[2017-01-08 11:42] LABS: Glucose,Whole Blood 144 mg/dL (75-99)
--- NOTE | 2017-01-08 12:42 | P.PN ---
Subjective Principal diagnosis: Patient seen and evaluated and examined during the rounds and ICU care plan discussed with the primary service as well as the patient and staff at length still have thick purulent sputum coming get short of breath with minimal activity and exertion he does have clear audible wheezing, the sputum is very thick tenacious and green to brown in color, he is status post echocardiogram result reviewed, preliminary culture so far shows no growth, his levo fed is off he however has a very poor reserve with minimal activity his saturation to drop down to mid 80s sometimes into 60s Patient seen and evaluated examined on an ICU patient is now off of levoped drip he is awake and alert breathing comfortably is a line is not working very well, which is to be removed, remains short of breath, minimal activity and exertion does have thick. No sputum production culture results and we will reports are reviewed no obvious growth has been noted so far him a patient remains on breathing treatment and steroids seems to be responding well. I had a detailed discussion with the son at bedside yesterday and care plan discussed with him at length. Patient of note that has the AICD off his he is is still consistent on being a full code at this point of time, Objective - Vital Signs Vital signs: Vital Signs Temp 98.5 F 01/08/17 10:00 Pulse 80 01/08/17 12:20 Resp 20 01/08/17 12:07 BP 110/69 01/08/17 10:00 Pulse Ox 88 L 01/08/17 10:00 Intake & Output 01/07/17 01/08/17 01/08/17 18:59 06:59 18:59 Intake Total 100 280 20 Output Total 310 1290 1085 Balance -210 -1010 -1065 Weight 126.2 kg 126.2 kg Intake: IV 100 280 20 0.9 at 20 ml/hr 100 280 20 Output: Urine 310 1290 1085 Other: Voiding Method Indwelling Catheter Indwelling Catheter Indwelling Catheter # Bowel Movements 0 1 ABP, PAP, CO, CI - Last Documented Arterial Blood Pressure 95/58 - Exam - Constitutional General appearance: Present: disheveled, mild distress, morbidly obese - EENT Eyes: Present: EOMI, PERRLA, normal appearance ENT: Present: hearing grossly normal, normal oropharynx Ears: bilateral: normal - Neck Neck: Present: normal ROM Carotids: bilateral: upstroke normal, bruit absent Thyroid: bilateral: normal size - Respiratory Respiratory: bilateral: rales (Basal crackles), rhonchi, wheezing, prolonged expiration - Cardiovascular Rhythm: regular Heart sounds: normal: S1, S2 - Peripheral edema ankle Peripheral Edema: bilateral: 1+ - Peripheral pulses posterior tibial Peripheral Pulses: bilateral: Normal radial pulse Peripheral Pulses: bilateral: Normal - Gastrointestinal General gastrointestinal: Present: decreased bowel sounds, distended, soft - Integumentary Integumentary: Present: normal, normal turgor - Neurologic Neurologic: Present: CNII-XII intact - Musculoskeletal Musculoskeletal: Present: generalized weakness, strength equal bilaterally - Psychiatric Psychiatric: Present: A&O x's 3, appropriate affect, intact judgment & insight - Labs CBC & Chem 7: 01/08/17 06:37 01/08/17 06:37 Labs: Abnormal Lab Results - Last 24 Hours (Table) 01/07/17 01/07/17 01/08/17 Range/Units 17:09 20:38 06:37 WBC 11.9 H (3.8-10.6) k/uL MCV 100.5 H (80.0-100.0) fL MCHC 29.9 L (31.0-37.0) g/dL Neutrophils # 10.7 H (1.3-7.7) k/uL Lymphocytes # 0.5 L (1.0-4.8) k/uL Carbon Dioxide (22-30) mmol/L BUN (9-20) mg/dL Creatinine (0.66-1.25) mg/dL Glucose (74-99) mg/dL POC Glucose (mg/dL) 147 H 156 H (75-99) mg/dL 01/08/17 01/08/17 01/08/17 Range/Units 06:37 07:36 11:41 WBC (3.8-10.6) k/uL MCV (80.0-100.0) fL MCHC (31.0-37.0) g/dL Neutrophils # (1.3-7.7) k/uL Lymphocytes # (1.0-4.8) k/uL Carbon Dioxide 33 H (22-30) mmol/L BUN 23 H (9-20) mg/dL Creatinine 0.50 L (0.66-1.25) mg/dL Glucose 167 H (74-99) mg/dL POC Glucose (mg/dL) 136 H 144 H (75-99) mg/dL Microbiology - Last 24 Hours (Table) 01/04/17 21:29 Blood Culture - Preliminary Blood No Growth after 72 hours 01/05/17 15:04 Gram Stain - Final Sputum Sputum Culture - Final Assessment and Plan Plan: Acute hypoxic respiratory failure Bilateral interstitial pneumonia on top of pulmonary fibrosis Cardiomyopathy congestive heart failure 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, with ejection fraction of 35% Arrhythmia with recurrent shocks from the AICD Severe morbid obesity and likely obstructive sleep apnea Severe sepsis and septic shock related to multifactorial process Uncontrolled diabetes and hyperglycemia Overall plan is to continue continue to gently rehydrate the patient follow up on culture results and report continue IV steroids breathing treatment continue to OBSERVE off of vasopressors and titrate as tolerated, will transfer patient out of ICU, follow up on echocardiogram report reviewed ejection fraction is only 30-35%, patient has multiple comorbidities including pulmonary fibrosis end -stage lung disease and likely obstructive sleep apnea with severe degree of cardiomyopathy acute on chronic systolic heart failure on top of that AICDs off patient has Placement of new AICD prognosis is very guarded, will continue to provide supportive care patient can be moved out of the ICU if remains stable later on today, critical care time spent 35 minutes Time with Patient: Greater than 30
[2017-01-08 17:10] LABS: Glucose,Whole Blood 157 mg/dL (75-99)
[2017-01-08] MEDS ORDERED: HYDROcodone/APAP 5-325MG 1 EACH TAB PO PRN (20:01)
[2017-01-08] MEDS: CLOPIDOGREL 75 MG TAB PO SCH (20:31)
[2017-01-08] MEDS: cefTRIAXone 2,000 MG in SODIUM CHLORIDE 0.9% 100 ML IVPB SCH (20:43)
[2017-01-08 21:04] LABS: Glucose,Whole Blood 151 mg/dL (75-99)
[2017-01-09 05:57] LABS: Glucose,Whole Blood 159 mg/dL (75-99)
[2017-01-09] MEDS: INSULIN LISPRO (humaLOG) 300 UNIT/3 ML VIAL SQ SCH ×4 (06:18→21:59)
[2017-01-09 06:51] LABS: Basophils % (A) 0 %; CH 30.6; CHCM 30.7; Eosinophils % (A) 0 %; HCT 53.3 % (39.0-53.0); HDW 2.32; HGB 15.8 gm/dL (13.0-17.5); Hypochromasia Slight; Luc # (Auto) 0.09; Luc % (Auto) 1; Lymphocytes # (A) 0.4 k/uL (1.0-4.8); Lymphocytes % (A) 4 %; MCH 29.8 pg (25.0-35.0); MCHC 29.8 g/dL (31.0-37.0); MCV 100.1 fL (80.0-100.0); Macrocytosis Slight; Mean Platelet Volume 7.8; Monocytes # (A) 0.6 k/uL (0-1.0); Monocytes % (A) 6 %; Neutrophils # (A) 8.8 k/uL (1.3-7.7); Neutrophils % (A) 89 %; RBC 5.32 m/uL (4.30-5.90); RDW 15.4 % (11.5-15.5); WBC 9.8 k/uL (3.8-10.6); WBC (Perox) 9.65
[2017-01-09 06:58] LABS: ALT 102 U/L (21-72); AST 68 U/L (17-59); Alkaline Phosphatase 143 U/L (38-126); Anion Gap 7 mmol/L; Blood Urea Nitrogen 23 mg/dL (9-20); Calcium 8.7 mg/dL (8.4-10.2); Carbon Dioxide 35 mmol/L (22-30); Chloride 97 mmol/L (98-107); Glucose 197 mg/dL (74-99); Magnesium 1.8 mg/dL (1.6-2.3); Non-African American GFR(MDRD) >60 (>60 ml/min/1.73 sqM); Phosphorous 3.1 mg/dL (2.5-4.5); Potassium 4.7 mmol/L (3.5-5.1); Sodium 139 mmol/L (137-145); Total Bilirubin 0.5 mg/dL (0.2-1.3); Total Protein 6.1 g/dL (6.3-8.2)
[2017-01-09] MEDS: ASPIRIN 325 MG TAB PO SCH (10:31)
[2017-01-09] MEDS: methylPREDNISolone SOD SUCCI 40 MG/ML 1 ML VIAL IV SCH ×3 (10:31→23:35)
[2017-01-09] MEDS: ATORVASTATIN 40 MG TAB PO SCH (10:32)
[2017-01-09] MEDS: GLUCOSAMINE PO SCH ×2 (10:32→21:58)
[2017-01-09] MEDS: AMIODARONE 200 MG TAB PO SCH (10:32)
[2017-01-09] MEDS: SOTALOL 80 MG TAB PO SCH ×2 (10:32→21:58)
--- NOTE | 2017-01-09 11:08 | XR ---
EXAMINATION TYPE: XR chest 2V DATE OF EXAM: 01/09/2017 COMPARISON: NONE TECHNIQUE: PA and lateral views submitted. HISTORY: Cough FINDINGS: Diffuse bilateral airspace disease. There is enlargement of the right hilum. Underlying adenopathy in the differential diagnosis. No pleural effusion or pneumothorax. Pleural thickening arthropathy shou coretta. IMPRESSION: 1. Diffuse interstitial pattern likely representing a combination of chronic interstitial pulmonary f ibrosis and interstitial pneumonitis or venous congestion. Right hilum enlarged.
[2017-01-09] MEDS: BUDESONIDE 0.5 MG/2 ML NEBU INHALATION SCH ×2 (11:09→21:03)
[2017-01-09] MEDS: IPRATROPIUM-ALBUTEROL 3 ML NEB INHALATION PRN ×2 (11:09→21:03)
[2017-01-09] MEDS: PROMETHAZ-COD 6.25-10 MG/5 ML 5 ML CUP PO PRN ×2 (11:31→21:54)
[2017-01-09 11:53] LABS: Glucose,Whole Blood 151 mg/dL (75-99)
--- NOTE | 2017-01-09 12:31 | P.PN ---
Subjective Principal diagnosis: Patient seen and evaluated and examined during the rounds and ICU care plan discussed with the primary service as well as the patient and staff at length still have thick purulent sputum coming get short of breath with minimal activity and exertion he does have clear audible wheezing, the sputum is very thick tenacious and green to brown in color, he is status post echocardiogram result reviewed, preliminary culture so far shows no growth, his levo fed is off he however has a very poor reserve with minimal activity his saturation to drop down to mid 80s sometimes into 60s Patient seen and evaluated examined on an ICU patient is now off of levoped drip he is awake and alert breathing comfortably is a line is not working very well, which is to be removed, remains short of breath, minimal activity and exertion does have thick. No sputum production culture results and we will reports are reviewed no obvious growth has been noted so far him a patient remains on breathing treatment and steroids seems to be responding well. I had a detailed discussion with the son at bedside yesterday and care plan discussed with him at length. Patient of note that has the AICD off his he is is still consistent on being a full code at this point of time, Patient seen and evaluated examined during the rounds remains short of breath on minimal activity and exertion with very poor reserve desaturate very easily patient is now out of the ICU in the stepdown unit. He was seen and evaluated examined does have thick. No sputum production which is somewhat clear than before denies any hemoptysis Objective - Vital Signs Vital signs: Vital Signs Temp 96.9 F L 01/09/17 08:00 Pulse 92 01/09/17 11:25 Resp 20 01/09/17 04:00 BP 128/71 01/09/17 08:00 Pulse Ox 82 L 01/09/17 08:00 Intake & Output 01/08/17 01/09/17 01/09/17 18:59 06:59 18:59 Intake Total 138 100 118 Output Total 1385 1500 Balance -1247 -1400 118 Weight 126.2 kg 132 kg Intake: IV 20 100 0.9 at 20 ml/hr 20 cefTRIAXone 2,000 mg In 100 Sodium Chloride 0.9% 100 ml @ 100 mls/hr IVPB Q24H CAITLYN Rx#:[id number] Oral 118 118 Output: Urine 1385 1500 Other: Voiding Method Indwelling Catheter Indwelling Catheter Indwelling Catheter # Voids 2 # Bowel Movements 1 1 ABP, PAP, CO, CI - Last Documented Arterial Blood Pressure 95/58 - Exam - Constitutional General appearance: Present: disheveled, mild distress, morbidly obese - EENT Eyes: Present: EOMI, PERRLA, normal appearance ENT: Present: hearing grossly normal, normal oropharynx Ears: bilateral: normal - Neck Neck: Present: normal ROM Carotids: bilateral: upstroke normal, bruit absent Thyroid: bilateral: normal size - Respiratory Respiratory: bilateral: rales (Basal crackles), rhonchi, wheezing, prolonged expiration - Cardiovascular Rhythm: regular Heart sounds: normal: S1, S2 - Peripheral edema ankle Peripheral Edema: bilateral: 1+ - Peripheral pulses posterior tibial Peripheral Pulses: bilateral: Normal radial pulse Peripheral Pulses: bilateral: Normal - Gastrointestinal General gastrointestinal: Present: decreased bowel sounds, distended, soft - Integumentary Integumentary: Present: normal, normal turgor - Neurologic Neurologic: Present: CNII-XII intact - Musculoskeletal Musculoskeletal: Present: generalized weakness, strength equal bilaterally - Psychiatric Psychiatric: Present: A&O x's 3, appropriate affect, intact judgment & insight - Labs CBC & Chem 7: 01/09/17 06:13 01/09/17 06:13 Labs: Abnormal Lab Results - Last 24 Hours (Table) 01/08/17 01/08/17 01/09/17 Range/Units 17:06 21:01 05:54 Hct (39.0-53.0) % MCV (80.0-100.0) fL MCHC (31.0-37.0) g/dL Neutrophils # (1.3-7.7) k/uL Lymphocytes # (1.0-4.8) k/uL Chloride (98-107) mmol/L Carbon Dioxide (22-30) mmol/L BUN (9-20) mg/dL Creatinine (0.66-1.25) mg/dL Glucose (74-99) mg/dL POC Glucose (mg/dL) 157 H 151 H 159 H (75-99) mg/dL AST (17-59) U/L ALT (21-72) U/L Alkaline Phosphatase (38-126) U/L Total Protein (6.3-8.2) g/dL Albumin (3.5-5.0) g/dL 01/09/17 01/09/17 01/09/17 Range/Units 06:13 06:13 11:49 Hct 53.3 H (39.0-53.0) % MCV 100.1 H (80.0-100.0) fL MCHC 29.8 L (31.0-37.0) g/dL Neutrophils # 8.8 H (1.3-7.7) k/uL Lymphocytes # 0.4 L (1.0-4.8) k/uL Chloride 97 L (98-107) mmol/L Carbon Dioxide 35 H (22-30) mmol/L BUN 23 H (9-20) mg/dL Creatinine 0.50 L (0.66-1.25) mg/dL Glucose 197 H (74-99) mg/dL POC Glucose (mg/dL) 151 H (75-99) mg/dL AST 68 H (17-59) U/L ALT 102 H (21-72) U/L Alkaline Phosphatase 143 H (38-126) U/L Total Protein 6.1 L (6.3-8.2) g/dL Albumin 3.3 L (3.5-5.0) g/dL Microbiology - Last 24 Hours (Table) 01/04/17 21:29 Blood Culture - Preliminary Blood No Growth after 96 hours Assessment and Plan Plan: Acute hypoxic respiratory failure Bilateral interstitial pneumonia on top of pulmonary fibrosis Cardiomyopathy congestive heart failure 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, with ejection fraction of 35% Arrhythmia with recurrent shocks from the AICD Severe morbid obesity and likely obstructive sleep apnea Severe sepsis and septic shock related to multifactorial process Uncontrolled diabetes and hyperglycemia Overall plan is to continue continue to gently rehydrate the patient follow up on culture results and report continue IV steroids breathing treatment continue to OBSERVE off of vasopressors and titrate as tolerated, follow up on echocardiogram report reviewed ejection fraction is only 30-35%, patient has multiple comorbidities including pulmonary fibrosis end-stage lung disease and likely obstructive sleep apnea with severe degree of cardiomyopathy acute on chronic systolic heart failure on top of that AICDs off patient has refused Placement of new AICD prognosis is very guarded, will continue to provide supportive care Time with Patient: Greater than 30
--- NOTE | 2017-01-09 13:52 | PN ---
CHIEF COMPLAINT: A 76-year-old white male admitted with chronic obstructive pulmonary disease exacerbation, defibrillator, AICD. White count 11.9, hemoglobin 14.4, platelets 177. Patient moved out of the ICU. I had seen the patient in ICU prior to transferring out of the ICU. His oxygen drops down to the mid-80s sometimes in the 60s. He was weaned off the norepinephrine and was sent home. His lung show green-brown exudate. LUNGS: Scattered wheeze and rhonchi. CARDIOVASCULAR: S1, S2. VASCULAR: Normal dorsalis pedis, posterior tibial and radial pulse. OPHTHALMOLOGIC: Pupils equal, round and reactive to light and accommodation. ( ) Temperature 98.5, pulse 80, respiratory 18 to 20, blood pressure 110/69, O2 98% . Lungs show decreased breath sounds x4 and scattered wheeze x4. CARDIOVASCULAR: S1, S2. NEUROLOGIC: Cranial nerves intact. PSYCH: Fair mood and affect. Labs are reviewed. ASSESSMENT: 1. Ischemic cardiomyopathy. 2. Acute hypoxemic respiratory failure. 3. Bilateral interstitial pneumonia. 4. Recurrent shocks of AICD. 5. Morbid obesity. 6. Obstructive sleep apnea. 7. Severe septic shock. 8. Uncontrolled diabetes and hyperglycemia. PLAN: Treat cardiomyopathy, treat chronic obstructive pulmonary disease, rehab placement will be needed as patient continues to decompensate with any ambulation. ICU time 30 minutes. MTDD
--- NOTE | 2017-01-09 14:33 | PN ---
SUBJECTIVE: This 76 -year-old white male admitted with being weaned off Norepinephrine in the ICU, is now back on the regular floor. He states he is not getting any better with his breathing. He has severe cough and congestion. I ordered another chest x-ray today and chest x-ray showed interstitial pneumonitis, venous congestion, pulmonary fibrosis which is similar to before. He maintains IV antibiotics. Awaiting cardiology opinion for possible cardiac intervention and possible heart catheterization. Cardiology has not seen him in a few days. His oxygen level obviously drops when he ambulates at all. Temperature is 96.9. He is on pulse 90s to 92. Blood pressure 128/70. O2 82 to 91 on 3 L. ASSESSMENT: 1. Ischemic cardiomyopathy. 2. Coronary artery disease. 3. Acute respiratory distress. 4. Chronic obstructive pulmonary disease. 5. Pulmonary fibrosis. Suspect possibly heart catheterization will be done as the patient is not improving and to see if there is anything they can improve from cardiac standpoint. He continues to have chest pain. He had a positive myocardial infarction on this admission. Please see further orders. Prognosis extremely guarded. MTDD
[2017-01-09 16:50] LABS: Glucose,Whole Blood 136 mg/dL (75-99)
[2017-01-09] MEDS: METOPROLOL SUCCINATE (ER) 25 MG TAB.ER.24H PO SCH (17:26)
[2017-01-09 21:29] LABS: Glucose,Whole Blood 161 mg/dL (75-99)
[2017-01-09] MEDS: cefTRIAXone 2,000 MG in SODIUM CHLORIDE 0.9% 100 ML IVPB SCH (21:57)
[2017-01-09] MEDS: CLOPIDOGREL 75 MG TAB PO SCH (21:58)
[2017-01-10 05:34] LABS: Glucose,Whole Blood 134 mg/dL (75-99)
[2017-01-10] MEDS: INSULIN LISPRO (humaLOG) 300 UNIT/3 ML VIAL SQ SCH ×6 (06:26→22:27)
[2017-01-10 07:07] LABS: Basophils % (A) 1 %; CH 29.7; CHCM 30.6; Eosinophils % (A) 0 %; HDW 2.32; HGB 15.5 gm/dL (13.0-17.5); Hypochromasia Slight; Luc # (Auto) 0.14; Luc % (Auto) 2; Lymphocytes # (A) 0.5 k/uL (1.0-4.8); Lymphocytes % (A) 8 %; MCH 30.8 pg (25.0-35.0); MCHC 31.6 g/dL (31.0-37.0); MCV 97.3 fL (80.0-100.0); Monocytes # (A) 0.5 k/uL (0-1.0); Monocytes % (A) 7 %; Neutrophils # (A) 5.5 k/uL (1.3-7.7); Neutrophils % (A) 83 %; RBC 5.04 m/uL (4.30-5.90); RDW 14.5 % (11.5-15.5); WBC 6.7 k/uL (3.8-10.6); WBC (Perox) 6.69
[2017-01-10 07:08] LABS: Anion Gap 5 mmol/L; Calcium 8.5 mg/dL (8.4-10.2); Carbon Dioxide 34 mmol/L (22-30); Chloride 99 mmol/L (98-107); Glucose 150 mg/dL (74-99); Non-African American GFR(MDRD) >60 (>60 ml/min/1.73 sqM); Sodium 138 mmol/L (137-145)
[2017-01-10] MEDS: BUDESONIDE 0.5 MG/2 ML NEBU INHALATION SCH ×2 (07:09→19:32)
[2017-01-10] MEDS: IPRATROPIUM-ALBUTEROL 3 ML NEB INHALATION PRN ×4 (07:09→19:32)
[2017-01-10 07:25] LABS: Blood Urea Nitrogen 24 mg/dL (9-20); Phosphorous 3.5 mg/dL (2.5-4.5); Potassium 4.9 mmol/L (3.5-5.1)
[2017-01-10 07:26] LABS: Magnesium 1.7 mg/dL (1.6-2.3)
[2017-01-10] MEDS: METOPROLOL SUCCINATE (ER) 25 MG TAB.ER.24H PO SCH (09:23)
[2017-01-10] MEDS: SOTALOL 80 MG TAB PO SCH ×2 (09:23→21:18)
[2017-01-10] MEDS: AMIODARONE 200 MG TAB PO SCH (09:23)
[2017-01-10] MEDS: ASPIRIN 325 MG TAB PO SCH (09:23)
[2017-01-10] MEDS: ATORVASTATIN 40 MG TAB PO SCH (09:23)
[2017-01-10] MEDS: methylPREDNISolone SOD SUCCI 40 MG/ML 1 ML VIAL IV SCH ×3 (09:23→23:06)
[2017-01-10] MEDS: GLUCOSAMINE PO SCH ×2 (09:25→21:18)
--- NOTE | 2017-01-10 10:34 | P.PN ---
Subjective Patient is being seen examined and evaluated today during rounds. Patient continues on supplemental oxygen 4 L via nasal cannula. The patient uses home oxygen 2 L. Patient continues to have shortness of breath on minimal activity and exertion with very poor reserve with immediate desaturations upon exertion. He continues to have a congested cough however states he has not produced any sputum today. Patient continues to decline having his AICD repositioned. He is afebrile, no overnight events. No further complaints at this time. Cardiology is also following closely. Objective - Vital Signs Vital signs: Vital Signs Temp 97.2 F L 01/10/17 08:00 Pulse 75 01/10/17 08:00 Resp 18 01/10/17 08:00 BP 107/57 01/10/17 08:00 Pulse Ox 91 L 01/10/17 08:00 Intake & Output 01/09/17 01/10/17 01/10/17 18:59 06:59 18:59 Intake Total 791 540 Output Total 1250 Balance 791 -710 Weight 131 kg Intake: IV 0 100 cefTRIAXone 2,000 mg In 0 100 Sodium Chloride 0.9% 100 ml @ 100 mls/hr IVPB Q24H [facility] Rx#:[id number] Oral 791 440 Output: Urine 1250 Other: Voiding Method Indwelling Catheter Indwelling Catheter Indwelling Catheter ABP, PAP, CO, CI - Last Documented Arterial Blood Pressure 95/58 - Exam GENERAL EXAM: Alert, disheveled, comfortable in no apparent distress. HEAD: Normocephalic. EYES: Normal reaction of pupils, equal size. NOSE: Clear with pink turbinates. THROAT: No erythema or exudates. NECK: No masses, no JVD. CHEST: No chest wall deformity. LUNGS: Lungs noted to be bilaterally coarse with scattered rhonchi and wheezing noted throughout. CVS: S1 and S2 normal with no audible mumurs, regular rhythm. ABDOMEN: No hepatosplenomegaly, normal bowel sounds, no guarding or rigidity. EXTREMITIES: No edema noted, pedal pulses palpable. SKIN: No rashes CENTRAL NERVOUS SYSTEM: No focal deficits, tone is normal in all 4 extremities. - Labs CBC & Chem 7: 01/10/17 06:48 01/10/17 06:42 Labs: Abnormal Lab Results - Last 24 Hours (Table) 01/09/17 01/09/17 01/09/17 Range/Units 11:49 16:44 21:27 Plt Count (150-450) k/uL Lymphocytes # (1.0-4.8) k/uL Carbon Dioxide (22-30) mmol/L BUN (9-20) mg/dL Creatinine (0.66-1.25) mg/dL Glucose (74-99) mg/dL POC Glucose (mg/dL) 151 H 136 H 161 H (75-99) mg/dL 01/10/17 01/10/17 01/10/17 Range/Units 05:30 06:42 06:48 Plt Count 141 L (150-450) k/uL Lymphocytes # 0.5 L (1.0-4.8) k/uL Carbon Dioxide 34 H (22-30) mmol/L BUN 24 H (9-20) mg/dL Creatinine 0.50 L (0.66-1.25) mg/dL Glucose 150 H (74-99) mg/dL POC Glucose (mg/dL) 134 H (75-99) mg/dL Microbiology - Last 24 Hours (Table) 01/04/17 21:29 Blood Culture - Preliminary Blood No Growth after 120 hours Assessment and Plan Plan: Acute hypoxic respiratory failure Bilateral interstitial pneumonia on top of pulmonary fibrosis Cardiomyopathy congestive heart failure 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, with ejection fraction of 35% Arrhythmia with recurrent shocks from the AICD Severe morbid obesity and likely obstructive sleep apnea Severe sepsis and septic shock related to multifactorial process Uncontrolled diabetes and hyperglycemia Overall plan is to continue continue to gently rehydrate the patient follow up on culture results and report continue IV steroids breathing treatment continue to OBSERVE off of vasopressors and titrate as tolerated, follow up on echocardiogram report reviewed ejection fraction is only 30-35%, patient has multiple comorbidities including pulmonary fibrosis end-stage lung disease and likely obstructive sleep apnea with severe degree of cardiomyopathy acute on chronic systolic heart failure on top of that AICDs off patient has refused Placement of new AICD prognosis is very guarded, will continue to provide supportive care Medications have been reviewed and will be continued as ordered. Continue with pulmonary hygiene, coughing and deep breathing exercises, and supportive care. Supplemental oxygen to maintain oxygen saturations of 92% or better. Continue nebulizer treatments. GI and DVT prophylaxis. We will continue to monitor labs/ results and adjust treatment as necessary. Further recommendations pending. I performed an examination of the patient and discussed their management with the nurse practitioner. I have reviewed the nurse practitioner's note and agree with the documented findings and plan of care.
[2017-01-10 11:47] LABS: Glucose,Whole Blood 204 mg/dL (75-99)
--- NOTE | 2017-01-10 13:00 | P.PN ---
Progress Note - Text Patient seen and examined with Dr. iyer. Patient's son and grandson were both in the room. Patient is short of breath lying in bed. He does not like to use Lasix unless he has a Roblero catheter. Bilateral rhonchorous breath sounds in both lung sahu Impression Non-Q wave WA Severe cardio myopathy Severe lung disease Suggest Maximum medical treatment for heart failure current myopathy and CAD Yesterday I added Toprol in addition to sotalol and today I increased the dose. If he can tolerated tomorrow I will add a low dose of losartan He see full dictation by Dr. iyer. The family is in agreement that maximal medical treatment and keeping Huey comfortable is his best option. He is at high risk for any kind of invasive approach
--- NOTE | 2017-01-10 15:15 | P.PN ---
Subjective This is a 74-year-old gentleman with known history of coronary artery disease, patient underwent angioplasty with stent placement of the circumflex in March of last year at which time he presented with an acute posterior wall myocardial infarction and cardiogenic shock. Patient also has history of prior LAD stenting, and known chronic occlusion of the right coronary artery. Patient also has history of ischemic cardiomyopathy status post AICD implant, hypertension, hyperlipidemia, COPD, and prior history of smoking. Patient's last documented ejection fraction was 20-25%. He had a recent admission to the hospital with AICD discharge and refuses to have repositioning of his AICD. He was admitted to the hospital on this occasion after experiencing shocks from his AICD, also ruled in for non-Q-wave myocardial infarction. His device was turned off. Patient's son and grandson both in the room at the time of her examination today. Patient is putting out adequate amounts of urine. Dr. Arango did have a lengthy discussion with the patient and the family regarding maximizing medical treatment for heart failure and cardiomyopathy as well as his CAD. Patient is desirous to undergo any procedures. Toprol was added to his medication regime yesterday as well as sotalol, dose increased today. Both the patient and the family are in agreement that maximal medical therapy is the best option. Blood pressure 124/70. Objective - Vital Signs Vital signs: Vital Signs Temp 97.5 F L 01/10/17 12:00 Pulse 81 01/10/17 12:00 Resp 18 01/10/17 12:00 BP 124/70 01/10/17 12:00 Pulse Ox 90 L 01/10/17 12:00 Intake & Output 01/09/17 01/10/17 01/10/17 18:59 06:59 18:59 Intake Total 791 540 Output Total 1250 Balance 791 -710 Weight 131 kg Intake: IV 0 100 cefTRIAXone 2,000 mg In 0 100 Sodium Chloride 0.9% 100 ml @ 100 mls/hr IVPB Q24H [facility] Rx#:[id number] Oral 791 440 Output: Urine 1250 Other: Voiding Method Indwelling Catheter Indwelling Catheter Indwelling Catheter ABP, PAP, CO, CI - Last Documented Arterial Blood Pressure 95/58 - Exam PHYSICAL EXAMINATION: HEENT: Head is atraumatic, normocephalic. Pupils equal, round. Neck is supple. There is no elevated jugular venous pressure. HEART EXAMINATION: Heart S1, S2 normal. No murmur or gallop heard. CHEST EXAMINATION: Decreased air exchange with fine wheezes throughout ABDOMEN: Soft, ,nontender. Bowel sounds are heard. No organomegaly noted. EXTREMITIES: 2+ peripheral pulses with evidence of peripheral edema and no calf tenderness noted. NEUROLOGIC [patient is awake, alert and oriented -3.] - Labs CBC & Chem 7: 01/10/17 06:48 01/10/17 06:42 Labs: Abnormal Lab Results - Last 24 Hours (Table) 01/09/17 01/09/17 01/10/17 Range/Units 16:44 21:27 05:30 Plt Count (150-450) k/uL Lymphocytes # (1.0-4.8) k/uL Carbon Dioxide (22-30) mmol/L BUN (9-20) mg/dL Creatinine (0.66-1.25) mg/dL Glucose (74-99) mg/dL POC Glucose (mg/dL) 136 H 161 H 134 H (75-99) mg/dL 01/10/17 01/10/17 01/10/17 Range/Units 06:42 06:48 11:45 Plt Count 141 L (150-450) k/uL Lymphocytes # 0.5 L (1.0-4.8) k/uL Carbon Dioxide 34 H (22-30) mmol/L BUN 24 H (9-20) mg/dL Creatinine 0.50 L (0.66-1.25) mg/dL Glucose 150 H (74-99) mg/dL POC Glucose (mg/dL) 204 H (75-99) mg/dL Microbiology - Last 24 Hours (Table) 01/04/17 21:29 Blood Culture - Preliminary Blood No Growth after 120 hours Assessment and Plan (1) NSTEMI (non-ST elevated myocardial infarction) Status: Acute (2) HTN (hypertension) Status: Acute (3) Hyperlipemia Status: Acute (4) Presence of stent in left circumflex coronary artery Status: Acute (5) COPD (chronic obstructive pulmonary disease) Status: Chronic (6) Heart failure, systolic, chronic Status: Chronic (7) Ischemic cardiomyopathy Status: Chronic (8) Defibrillator discharge Status: Resolved Plan: We will maximize medical therapy for heart failure, cardiac myopathy and CAD. Increase dose of Toprol today and as tolerated tomorrow we will increase his dose of valsartan. DNP note has been reviewed, I agree with a documented findings and plan of care. Patient was seen and examined.
[2017-01-10 17:00] LABS: Glucose,Whole Blood 192 mg/dL (75-99)
[2017-01-10] MEDS: cefTRIAXone 2,000 MG in SODIUM CHLORIDE 0.9% 100 ML IVPB SCH (20:11)
[2017-01-10] MEDS: CLOPIDOGREL 75 MG TAB PO SCH (21:17)
[2017-01-10] MEDS: ACETAMINOPHEN TAB 325 MG TAB PO PRN (21:18)
[2017-01-10 22:02] LABS: Glucose,Whole Blood 157 mg/dL (75-99)
[2017-01-11 05:56] LABS: Glucose,Whole Blood 152 mg/dL (75-99)
[2017-01-11] MEDS: INSULIN LISPRO (humaLOG) 300 UNIT/3 ML VIAL SQ SCH ×4 (06:24→21:31)
[2017-01-11] MEDS: IPRATROPIUM-ALBUTEROL 3 ML NEB INHALATION PRN ×3 (08:17→15:32)
[2017-01-11] MEDS: BUDESONIDE 0.5 MG/2 ML NEBU INHALATION SCH ×2 (08:17→20:27)
[2017-01-11] MEDS: methylPREDNISolone SOD SUCCI 40 MG/ML 1 ML VIAL IV SCH ×2 (09:23→18:01)
[2017-01-11] MEDS: SOTALOL 80 MG TAB PO SCH ×2 (09:24→22:43)
[2017-01-11] MEDS: ASPIRIN 325 MG TAB PO SCH (09:24)
[2017-01-11] MEDS: GLUCOSAMINE PO SCH ×2 (09:25→21:30)
[2017-01-11] MEDS: AMIODARONE 200 MG TAB PO SCH (09:25)
[2017-01-11] MEDS: ATORVASTATIN 40 MG TAB PO SCH (09:25)
[2017-01-11] MEDS: METOPROLOL SUCCINATE (ER) 25 MG TAB.ER.24H PO SCH (09:25)
[2017-01-11 11:41] LABS: Glucose,Whole Blood 184 mg/dL (75-99)
--- NOTE | 2017-01-11 11:59 | P.PN ---
Subjective 01/10/17- Patient is being seen examined and evaluated today during rounds. Patient continues on supplemental oxygen 4 L via nasal cannula. The patient uses home oxygen 2 L. Patient continues to have shortness of breath on minimal activity and exertion with very poor reserve with immediate desaturations upon exertion. He continues to have a congested cough however states he has not produced any sputum today. Patient continues to decline having his AICD repositioned. He is afebrile, no overnight events. No further complaints at this time. Cardiology is also following closely. 01/11/17- patient has been seen examined and evaluated today during rounds. He continues to use 4 L supplemental oxygen via nasal cannula. Shortness of breath on minimal activity/exertion still persists. Continues to desaturate rather quickly with exertion. Continues to have a congested cough, no sputum. Cardiology continues to adjust medical regime. He is afebrile, no overnight events. No further complaints. Patient could benefit from a rehab facility upon discharge. Objective - Vital Signs Vital signs: Vital Signs Temp 97.1 F L 01/11/17 04:00 Pulse 68 01/11/17 09:07 Resp 18 01/11/17 08:00 BP 107/58 01/11/17 08:00 Pulse Ox 95 01/11/17 08:00 Intake & Output 01/10/17 01/11/17 01/11/17 18:59 06:59 18:59 Intake Total 800 100 460 Output Total 2600 250 Balance 800 -2500 210 Weight 129.5 kg Intake: IV 100 100 cefTRIAXone 2,000 mg In 100 100 Sodium Chloride 0.9% 100 ml @ 100 mls/hr IVPB Q24H [facility] Rx#:[id number] Oral 800 360 Output: Urine 2600 250 Other: Voiding Method Indwelling Catheter Indwelling Catheter Indwelling Catheter # Voids 1 # Bowel Movements 1 ABP, PAP, CO, CI - Last Documented Arterial Blood Pressure 95/58 - Exam GENERAL EXAM: Alert, disheveled, comfortable in no apparent distress. HEAD: Normocephalic. EYES: Normal reaction of pupils, equal size. NOSE: Clear with pink turbinates. THROAT: No erythema or exudates. NECK: No masses, no JVD. CHEST: No chest wall deformity. LUNGS: Lungs noted to be bilaterally coarse with scattered rhonchi and wheezing noted throughout. Bases diminished CVS: S1 and S2 normal with no audible mumurs, regular rhythm. ABDOMEN: No hepatosplenomegaly, normal bowel sounds, no guarding or rigidity. EXTREMITIES: No edema noted, pedal pulses palpable. SKIN: No rashes CENTRAL NERVOUS SYSTEM: No focal deficits, tone is normal in all 4 extremities. - Labs CBC & Chem 7: 01/10/17 06:48 01/10/17 06:42 Labs: Abnormal Lab Results - Last 24 Hours (Table) 01/10/17 01/10/17 01/10/17 Range/Units 16:58 21:59 21:59 POC Glucose (mg/dL) 192 H 157 H 157 H (75-99) mg/dL 01/11/17 01/11/17 Range/Units 05:55 11:39 POC Glucose (mg/dL) 152 H 184 H (75-99) mg/dL Microbiology - Last 24 Hours (Table) 01/04/17 21:29 Blood Culture - Final Blood No Growth after 144 hours Assessment and Plan Plan: Acute hypoxic respiratory failure Bilateral interstitial pneumonia on top of pulmonary fibrosis Cardiomyopathy congestive heart failure 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, with ejection fraction of 35% Arrhythmia with recurrent shocks from the AICD Severe morbid obesity and likely obstructive sleep apnea Severe sepsis and septic shock related to multifactorial process Uncontrolled diabetes and hyperglycemia Overall plan is to continue continue to gently rehydrate the patient follow up on culture results and report continue IV steroids, which will be decreased, breathing treatment follow up on echocardiogram report reviewed ejection fraction is only 30-35%, patient has multiple comorbidities including pulmonary fibrosis end-stage lung disease and likely obstructive sleep apnea with severe degree of cardiomyopathy acute on chronic systolic heart failure on top of that AICDs off patient has refused Placement of new AICD prognosis is very guarded, will continue to provide supportive care Medications have been reviewed and will be continued as ordered. Continue with pulmonary hygiene, coughing and deep breathing exercises, and supportive care. Supplemental oxygen to maintain oxygen saturations of 92% or better. Continue nebulizer treatments. GI and DVT prophylaxis. We will continue to monitor labs/ results and adjust treatment as necessary. Further recommendations pending. I performed an examination of the patient and discussed their management with the nurse practitioner. I have reviewed the nurse practitioner's note and agree with the documented findings and plan of care.
--- NOTE | 2017-01-11 12:10 | PN ---
SUBJECTIVE: A 76-year-old white male who was admitted to the hospital with endstage chronic obstructive pulmonary disease, AICD pacemaker firing. AICD as mentioned above, I discussed with Cardiology today about doing cardiac catheterization. They are planning no further care as the patient is high risk. He has respiratory distress with any ambulation at all. I discussed with him possibly going on Entresto, which is a new medication for congestive heart failure, but cardiology medicines were adapted and changed today with change in the beta dionne therapy. If blood pressure stays decent he may be able to be started on Entresto. Temp 97.5, pulse 81, respiratory rate 16, blood pressure 124/70, O2 90% on 2-L. LUNGS: Decreased breath sounds, scattered wheeze diffuse. ABDOMEN: Soft, nontender. EXTEMITIES: 2+ pedal edema. NEUROLOGIC: Cranial nerves are intact. HEENT: Normocephalic, atraumatic. ASSESSMENT: 1. Thrombocytopenia. 2. Acute on chronic renal insufficiency. 3. Non-ST elevation myocardial infarction. 4. Hypertension. 5. Dyslipidemia. 6. Stent in left circumflex. 7. Chronic obstructive pulmonary disease exacerbation. 8. Chronic systolic heart failure. 9. Ischemic cardiomyopathy with defibrillator discharge. Medical therapy, possibly go to long-term for physical therapy as he has no one to take him at home and is not going to do well at home. MTDD
--- NOTE | 2017-01-11 13:03 | PN ---
SUBJECTIVE: A 76-year-old white male who is seen by Cardiology today for a non- Q-wave ME, severe cardiomyopathy, severe lung disease, add Toprol in addition to Sotalol, increase his dose. Possibility of adding losartan or Entresto tomorrow. He is unable to get better. Per Cardiology, they are refusing to a cardiac catheterization as it will not help. They say he should go on hospice, he is on his bed. Oxygen drops now with any ambulation. Set up rehab. ( ) is my plan. Pulmonology also saw the patient today 01/10/2017. They are weaning steroids, continue IV antibiotics. They cannot improve him anymore than they have also. Continue the Pulmonary hygiene. Continue PT, OT. Possible rehab facility. Steroids and updrafts will be continued. Cardiac medications as mentioned above are adjusted. MTDD
[2017-01-11 13:40] VITALS: BMI 36.6
--- NOTE | 2017-01-11 14:49 | P.PN ---
Subjective This is a 74-year-old gentleman with known history of coronary artery disease, patient underwent angioplasty with stent placement of the circumflex in March of last year at which time he presented with an acute posterior wall myocardial infarction and cardiogenic shock. Patient also has history of prior LAD stenting, and known chronic occlusion of the right coronary artery. Patient also has history of ischemic cardiomyopathy status post AICD implant, hypertension, hyperlipidemia, COPD, and prior history of smoking. Patient's last documented ejection fraction was 20-25%. He had a recent admission to the hospital with AICD discharge and refuses to have repositioning of his AICD. He was admitted to the hospital on this occasion after experiencing shocks from his AICD, also ruled in for non-Q-wave myocardial infarction. His device was turned off. Patient's son and grandson both in the room at the time of her examination today. Patient is putting out adequate amounts of urine. Dr. Arango did have a lengthy discussion with the patient and the family regarding maximizing medical treatment for heart failure and cardiomyopathy as well as his CAD. Patient is desirous to undergo any procedures. Toprol was added to his medication regime yesterday as well as sotalol, dose increased today. Both the patient and the family are in agreement that maximal medical therapy is the best option. Blood pressure 124/70. 01/11/2017 Patient seen and examined today, denies any chest discomfort. Blood pressure 107/60 with a heart rate in the 70s. 95% on 3 L of oxygen. Objective - Vital Signs Vital signs: Vital Signs Temp 97.1 F L 01/11/17 04:00 Pulse 70 01/11/17 12:10 Resp 18 01/11/17 08:00 BP 107/58 01/11/17 08:00 Pulse Ox 95 01/11/17 08:00 Intake & Output 01/10/17 01/11/17 01/11/17 18:59 06:59 18:59 Intake Total 800 100 460 Output Total 2600 250 Balance 800 -2500 210 Weight 129.5 kg 129.5 kg Intake: IV 100 100 cefTRIAXone 2,000 mg In 100 100 Sodium Chloride 0.9% 100 ml @ 100 mls/hr IVPB Q24H [facility] Rx#:[id number] Oral 800 360 Output: Urine 2600 250 Other: Voiding Method Indwelling Catheter Indwelling Catheter Indwelling Catheter # Voids 1 # Bowel Movements 1 ABP, PAP, CO, CI - Last Documented Arterial Blood Pressure 95/58 - Exam PHYSICAL EXAMINATION: HEENT: Head is atraumatic, normocephalic. Pupils equal, round. Neck is supple. There is no elevated jugular venous pressure. HEART EXAMINATION: Heart S1, S2 normal. No murmur or gallop heard. CHEST EXAMINATION: Decreased air exchange with fine wheezes throughout ABDOMEN: Soft, ,nontender. Bowel sounds are heard. No organomegaly noted. EXTREMITIES: 2+ peripheral pulses with evidence of peripheral edema and no calf tenderness noted. NEUROLOGIC [patient is awake, alert and oriented -3.] - Labs CBC & Chem 7: 01/10/17 06:48 01/10/17 06:42 Labs: Abnormal Lab Results - Last 24 Hours (Table) 01/10/17 01/10/17 01/10/17 Range/Units 16:58 21:59 21:59 POC Glucose (mg/dL) 192 H 157 H 157 H (75-99) mg/dL 01/11/17 01/11/17 Range/Units 05:55 11:39 POC Glucose (mg/dL) 152 H 184 H (75-99) mg/dL Microbiology - Last 24 Hours (Table) 01/04/17 21:29 Blood Culture - Final Blood No Growth after 144 hours Assessment and Plan (1) NSTEMI (non-ST elevated myocardial infarction) Status: Acute (2) HTN (hypertension) Status: Acute (3) Hyperlipemia Status: Acute (4) Presence of stent in left circumflex coronary artery Status: Acute (5) COPD (chronic obstructive pulmonary disease) Status: Chronic (6) Heart failure, systolic, chronic Status: Chronic (7) Ischemic cardiomyopathy Status: Chronic (8) Defibrillator discharge Status: Resolved Plan: From cardiology's perspective, we'll continue patient on his current medications. I believe arrangements are being made for possible rehab post discharge. DNP note has been reviewed, I agree with a documented findings and plan of care. Patient was seen and examined.
[2017-01-11 16:48] LABS: Glucose,Whole Blood 173 mg/dL (75-99)
[2017-01-11 20:51] LABS: Glucose,Whole Blood 190 mg/dL (75-99)
[2017-01-11] MEDS: CLOPIDOGREL 75 MG TAB PO SCH (21:29)
[2017-01-11] MEDS: cefTRIAXone 2,000 MG in SODIUM CHLORIDE 0.9% 100 ML IVPB SCH (21:33)
[2017-01-12] MEDS: methylPREDNISolone SOD SUCCI 40 MG/ML 1 ML VIAL IV SCH ×3 (04:43→21:38)
[2017-01-12 05:42] LABS: Glucose,Whole Blood 123 mg/dL (75-99)
[2017-01-12] MEDS: INSULIN LISPRO (humaLOG) 300 UNIT/3 ML VIAL SQ SCH ×4 (06:37→21:39)
[2017-01-12] MEDS: ASPIRIN 325 MG TAB PO SCH (08:58)
[2017-01-12] MEDS: AMIODARONE 200 MG TAB PO SCH (08:58)
[2017-01-12] MEDS: ATORVASTATIN 40 MG TAB PO SCH (08:59)
[2017-01-12] MEDS: METOPROLOL SUCCINATE (ER) 25 MG TAB.ER.24H PO SCH (08:59)
[2017-01-12] MEDS: SOTALOL 80 MG TAB PO SCH ×2 (09:00→21:39)
[2017-01-12] MEDS: IPRATROPIUM-ALBUTEROL 3 ML NEB INHALATION PRN ×3 (09:14→20:31)
[2017-01-12] MEDS: BUDESONIDE 0.5 MG/2 ML NEBU INHALATION SCH ×2 (09:14→20:31)
--- NOTE | 2017-01-12 09:44 | P.PN ---
Subjective 01/10/17- Patient is being seen examined and evaluated today during rounds. Patient continues on supplemental oxygen 4 L via nasal cannula. The patient uses home oxygen 2 L. Patient continues to have shortness of breath on minimal activity and exertion with very poor reserve with immediate desaturations upon exertion. He continues to have a congested cough however states he has not produced any sputum today. Patient continues to decline having his AICD repositioned. He is afebrile, no overnight events. No further complaints at this time. Cardiology is also following closely. 01/11/17- patient has been seen examined and evaluated today during rounds. He continues to use 4 L supplemental oxygen via nasal cannula. Shortness of breath on minimal activity/exertion still persists. Continues to desaturate rather quickly with exertion. Continues to have a congested cough, no sputum. Cardiology continues to adjust medical regime. He is afebrile, no overnight events. No further complaints. Patient could benefit from a rehab facility upon discharge. 01/12/17- patient seen seen examined and followed up with today on rounds. Upon examination the patient's resting up in bed on or liters of supplemental oxygen. He continues with shortness of breath with minimal activity and exertion. Continues to have a very poor reserve in regards to oxygen saturation. Continues to have a cough with no sputum production. Patient has been educated at length about the need for rehab facility, if he would like to get stronger, he states he will consider this. The patient has a poor prognosis. Patient is also complaining of some leakage from his catheter site, it is unclear why he has the catheter at this point, he states it was given to him while he is on Lasix, patient is no longer on Lasix will defer to primary services in regards to possibly discontinuing the Roblero. Objective - Vital Signs Vital signs: Vital Signs Temp 97.6 F 01/11/17 20:00 Pulse 68 01/12/17 09:37 Resp 20 01/12/17 04:35 BP 108/72 01/12/17 04:35 Pulse Ox 90 L 01/12/17 04:35 Intake & Output 01/11/17 01/12/17 01/12/17 18:59 06:59 18:59 Intake Total 560 600 Output Total 950 1200 Balance -390 -600 Weight 129.5 kg 119.6 kg Intake: IV 100 100 cefTRIAXone 2,000 mg In 100 100 Sodium Chloride 0.9% 100 ml @ 100 mls/hr IVPB Q24H [facility] Rx#:[id number] Oral 460 500 Output: Urine 950 1200 Other: Voiding Method Indwelling Catheter Indwelling Catheter # Voids 1 # Bowel Movements 1 ABP, PAP, CO, CI - Last Documented Arterial Blood Pressure 95/58 - Exam GENERAL EXAM: Alert, disheveled, comfortable in no apparent distress. HEAD: Normocephalic. EYES: Normal reaction of pupils, equal size. NOSE: Clear with pink turbinates. THROAT: No erythema or exudates. NECK: No masses, no JVD. CHEST: No chest wall deformity. LUNGS: Lungs noted to be bilaterally coarse with scattered rhonchi and wheezing noted throughout. Bases diminished CVS: S1 and S2 normal with no audible mumurs, regular rhythm. ABDOMEN: No hepatosplenomegaly, normal bowel sounds, no guarding or rigidity. EXTREMITIES: No edema noted, pedal pulses palpable. SKIN: No rashes CENTRAL NERVOUS SYSTEM: No focal deficits, tone is normal in all 4 extremities. - Labs CBC & Chem 7: 01/10/17 06:48 01/10/17 06:42 Labs: Abnormal Lab Results - Last 24 Hours (Table) 01/11/17 01/11/17 01/11/17 Range/Units 11:39 16:44 20:49 POC Glucose (mg/dL) 184 H 173 H 190 H (75-99) mg/dL 01/12/17 Range/Units 05:35 POC Glucose (mg/dL) 123 H (75-99) mg/dL Assessment and Plan Plan: Acute hypoxic respiratory failure Bilateral interstitial pneumonia on top of pulmonary fibrosis Cardiomyopathy congestive heart failure 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, with ejection fraction of 35% Arrhythmia with recurrent shocks from the AICD Severe morbid obesity and likely obstructive sleep apnea Severe sepsis and septic shock related to multifactorial process Uncontrolled diabetes and hyperglycemia Overall plan is to continue continue to gently rehydrate the patient follow up on culture results and report continue IV steroids, which will be decreased, breathing treatment follow up on echocardiogram report reviewed ejection fraction is only 30-35%, patient has multiple comorbidities including pulmonary fibrosis end-stage lung disease and likely obstructive sleep apnea with severe degree of cardiomyopathy acute on chronic systolic heart failure on top of that AICDs off patient has refused Placement of new AICD prognosis is very guarded, will continue to provide supportive care From pulmonary standpoint we are recommending a rehab facility upon discharge due to the patient's weakness, poor reserve and decreased strength. Patient will get his last dose of IV steroids today and will be switched to oral which will begin in the morning. Medications have been reviewed and will be continued as ordered. Continue with pulmonary hygiene, coughing and deep breathing exercises, and supportive care. Supplemental oxygen to maintain oxygen saturations of 92% or better. Continue nebulizer treatments. GI and DVT prophylaxis. We will continue to monitor labs/results and adjust treatment as necessary. Further recommendations pending. I performed an examination of the patient and discussed their management with the nurse practitioner. I have reviewed the nurse practitioner's note and agree with the documented findings and plan of care.
[2017-01-12 11:42] VITALS: RESP 18
[2017-01-12] MEDS: GLUCOSAMINE PO SCH ×2 (11:48→21:40)
--- NOTE | 2017-01-12 12:04 | P.PN ---
Subjective This is a 74-year-old gentleman with known history of coronary artery disease, patient underwent angioplasty with stent placement of the circumflex in March of last year at which time he presented with an acute posterior wall myocardial infarction and cardiogenic shock. Patient also has history of prior LAD stenting, and known chronic occlusion of the right coronary artery. Patient also has history of ischemic cardiomyopathy status post AICD implant, hypertension, hyperlipidemia, COPD, and prior history of smoking. Patient's last documented ejection fraction was 20-25%. He had a recent admission to the hospital with AICD discharge and refuses to have repositioning of his AICD. He was admitted to the hospital on this occasion after experiencing shocks from his AICD, also ruled in for non-Q-wave myocardial infarction. His device was turned off. Patient's son and grandson both in the room at the time of her examination today. Patient is putting out adequate amounts of urine. Dr. Arango did have a lengthy discussion with the patient and the family regarding maximizing medical treatment for heart failure and cardiomyopathy as well as his CAD. Patient is desirous to undergo any procedures. Toprol was added to his medication regime yesterday as well as sotalol, dose increased today. Both the patient and the family are in agreement that maximal medical therapy is the best option. Blood pressure 124/70. 01/11/2017 Patient seen and examined today, denies any chest discomfort. Blood pressure 107/60 with a heart rate in the 70s. 95% on 3 L of oxygen. 01/12/2017 Patient seen and examined this morning, hemodynamically stable. Oxygenation 90 % on 4 L. Arrangements are being made for the patient to go to a rehab facility. Objective - Vital Signs Vital signs: Vital Signs Temp 97.0 F L 01/12/17 08:00 Pulse 68 01/12/17 09:37 Resp 18 01/12/17 08:00 BP 101/66 01/12/17 08:00 Pulse Ox 90 L 01/12/17 08:00 Intake & Output 01/11/17 01/12/17 01/12/17 18:59 06:59 18:59 Intake Total 560 600 300 Output Total 950 1200 Balance -390 -600 300 Weight 129.5 kg 119.6 kg Intake: IV 100 100 cefTRIAXone 2,000 mg In 100 100 Sodium Chloride 0.9% 100 ml @ 100 mls/hr IVPB Q24H [facility] Rx#:[id number] Oral 460 500 300 Output: Urine 950 1200 Other: Voiding Method Indwelling Catheter Indwelling Catheter Indwelling Catheter # Voids 1 # Bowel Movements 1 0 ABP, PAP, CO, CI - Last Documented Arterial Blood Pressure 95/58 - Exam PHYSICAL EXAMINATION: HEENT: Head is atraumatic, normocephalic. Pupils equal, round. Neck is supple. There is no elevated jugular venous pressure. HEART EXAMINATION: Heart S1, S2 normal. No murmur or gallop heard. CHEST EXAMINATION: Decreased air exchange with fine wheezes throughout ABDOMEN: Soft, ,nontender. Bowel sounds are heard. No organomegaly noted. EXTREMITIES: 2+ peripheral pulses with evidence of peripheral edema and no calf tenderness noted. NEUROLOGIC [patient is awake, alert and oriented -3.] - Labs CBC & Chem 7: 01/10/17 06:48 01/10/17 06:42 Labs: Abnormal Lab Results - Last 24 Hours (Table) 01/11/17 01/11/17 01/12/17 Range/Units 16:44 20:49 05:35 POC Glucose (mg/dL) 173 H 190 H 123 H (75-99) mg/dL Assessment and Plan (1) NSTEMI (non-ST elevated myocardial infarction) Status: Acute (2) HTN (hypertension) Status: Acute (3) Hyperlipemia Status: Acute (4) Presence of stent in left circumflex coronary artery Status: Acute (5) COPD (chronic obstructive pulmonary disease) Status: Chronic (6) Heart failure, systolic, chronic Status: Chronic (7) Ischemic cardiomyopathy Status: Chronic (8) Defibrillator discharge Status: Resolved Plan: From cardiology's perspective, we'll continue patient on his current medications. Arrangements are being made for possible rehab post discharge. We will follow this patient with you now on an as-needed basis only, please don' t hesitate to call with any questions. On discharge a follow-up appointment will be made with Dr. VC Cohen in the office. DNP note has been reviewed, I agree with a documented findings and plan of care. Patient was seen and examined.
[2017-01-12 14:07] LABS: Glucose,Whole Blood 175 mg/dL (75-99)
--- NOTE | 2017-01-12 14:40 | P.DS ---
Providers Date of admission: 01/04/17 23:15 Expected date of discharge: 01/13/17 Attending physician: Alan Otero Consults: 01/04/17 23:15 Consult Physician Stat Consulting Provider: Herman Cornell Consult Reason/Comments: COPD Do you want consulting provider notified?: Yes Consult Physician Urgent Consulting Provider: Miryam Landers Consult Reason/Comments: [place] Do you want consulting provider notified?: Yes 01/09/17 11:39 Consult Physician Routine Consulting Provider: Anthony Fong Consult Reason/Comments: cardiac catheterization Do you want consulting provider notified?: Yes Primary care physician: Alan Otero [facility] Course: This is a 76 year old male who was admitted to the hospital on January 04, 2017. The patient had a recent hospitalization due to his AICD firing and it was recommended that the patient undergo repositioning of his AICD which he refused. He presented to the ER for SOB and his AICD firing. Additionally, the patient suffered a non-Q-wave myocardial infarction. The patient was admitted to the ICU. The patient developed acute hypoxic respiratory failure and required mechanical ventilation for a short period of time. He required vasopressors for hemodynamic stability. The patient had an echo completed which showed an EF of 35% Cardiology was consulted. The decision was made to turn off his AICD and treat him with medication. The patient and his son son were agreeable to this plan of care Pulmonary is on consult and have maximized the patient's treatment regimen. Patient is receiving [id number] breathing treatments and IV steroids.He aguilar since been transitioned to oral steroids. The patient remains on supplemental oxygen and appears short of breath with minimal activity. Initially the patient was requesting to be discharged home, but after a lengthy conversation with the patient he has agreed to ECF placement. The patient had refused to work with physical therapy but is agreeing to work with him at this time. Social work continues to work on DC planning? Dr. Otero evaluated and assessed this patient. Per Dr. Otero, the patient may be discharged to an ECF on current cardiac medications and augmentin 875mg BID x 10 days. Discharge Diagnosis: Bilateral interstitial pneumonia, resolving History of Diabetes Mellitus, Type 2 History of pulmonary fibrosis Acute on chronic systolic and diastolic heart failure Acute hypoxic respiratory failure requiring mechanical ventilation, patient extubated Chronic end stage COPD with acute exacerbation The above impression and plan of care have been discussed and directed by signing physician. Bita Alvarez, nurse practitioner, acting as scribe for signing physician. Patient Condition at Discharge: Fair Plan - Discharge Summary New Discharge Prescriptions: New Amiodarone [Cordarone] 200 mg PO DAILY tab Amoxic-Pot Clav 875-125Mg [Augmentin 875-125] 1 tab PO Q12HR #20 tablet Atorvastatin [Lipitor] 40 mg PO DAILY tab Metoprolol Succinate (ER) [Toprol XL] 25 mg PO DAILY tab Aspirin EC [Ecotrin Low Dose] 81 mg PO DAILY #30 tablet. Continue Flaxseed-Scuddy 3,6,9 Fatty Acid 1 tab PO DAILY@1200 Clopidogrel [Plavix] 75 mg PO HS@0400 Multivit-Min/FA/Lycopen/Lutein [Centrum Silver Tablet] 1 tab PO DAILY@1200 Glucosam/Anant-Msm1/C/Kvng/Bosw [Glucosamine-Chondroitin Tablet] 1 tab PO BID@ 0400,1200 Loratadine [Alavert] 10 mg PO DAILY@1200 Carbamide Peroxide [Debrox Otic] 5 drops LEFT EAR BID #1 bottle Ipratropium-Albuterol Nebulize [Duoneb 0.5 mg-3 mg/3 ml Soln] 3 ml INHALATION RT-QID neb Budesonide [Pulmicort] 1 mg INHALATION RT-BID #60 neb Hydrocortisone Pr Cream [Proctosol-Hc 2.5%] 1 applic RECTAL BID #1 pkg predniSONE See Taper PO DAILY Discontinued Aspirin EC [Ecotrin Low Dose] 81 mg PO DAILY@1200 Sotalol [Betapace] 40 mg PO BID@0400,1200 Lisinopril [Zestril] 2.5 mg PO HS@0400 Discharge Medication List Clopidogrel [Plavix] 75 mg PO HS@0400 02/12/16 [History] Flaxseed-Scuddy 3,6,9 Fatty Acid 1 tab PO DAILY@1200 02/12/16 [History] Glucosam/Anant-Msm1/C/Kvng/Bosw [Glucosamine-Chondroitin Tablet] 1 tab PO BID@ 0400,1200 02/12/16 [History] Multivit-Min/FA/Lycopen/Lutein [Centrum Silver Tablet] 1 tab PO DAILY@1200 02/11 [History] Loratadine [Alavert] 10 mg PO DAILY@1200 12/07/16 [History] Carbamide Peroxide [Debrox Otic] 5 drops LEFT EAR BID #1 bottle 12/14/16 [Rx] Ipratropium-Albuterol Nebulize [Duoneb 0.5 mg-3 mg/3 ml Soln] 3 ml INHALATION RT -QID neb 12/14/16 [Rx] Budesonide [Pulmicort] 1 mg INHALATION RT-BID #60 neb 01/03/17 [Rx] Hydrocortisone Pr Cream [Proctosol-Hc 2.5%] 1 applic RECTAL BID #1 pkg 01/03/17 [Rx] predniSONE See Taper PO DAILY 01/04/17 [History] Amiodarone [Cordarone] 200 mg PO DAILY tab 01/12/17 [Rx] Amoxic-Pot Clav 875-125Mg [Augmentin 875-125] 1 tab PO Q12HR #20 tablet [Rx] Aspirin EC [Ecotrin Low Dose] 81 mg PO DAILY #30 tablet. 01/12/17 [Rx] Atorvastatin [Lipitor] 40 mg PO DAILY tab 01/12/17 [Rx] Metoprolol Succinate (ER) [Toprol XL] 25 mg PO DAILY tab 01/12/17 [Rx] Follow up Appointment(s)/Referral(s): Alan Otero MD [Primary Care Provider] - 1-2 days Herman Cornell MD [STAFF PHYSICIAN] - 1 Week [facility] Visiting Nurse, [NON-STAFF] - 1 Week Discharge Disposition: TRANSFER TO SNF/ECF
--- NOTE | 2017-01-12 16:26 | XR ---
EXAMINATION TYPE: XR chest 2V DATE OF EXAM: 01/12/2017 COMPARISON: Chest x-ray from 3 days ago and older studies. CTA chest December 08, 2016. HISTORY: Difficulty in breathing. TECHNIQUE: Frontal and lateral views of the chest are obtained. FINDINGS: There is persistent cardiomegaly. There is left-sided AICD overlying the anterior chest wal l redemonstrated. There is bilateral opacity consistent with predominant scarring, areas of acute inf iltrate are difficult to exclude. Bronchiectasis in bilateral lower lungs is present seen better on C T. No large pleural effusion or pneumothorax is seen. Osseous structures are intact. IMPRESSION: Overall stable findings from most recent chest x-ray, cardiomegaly and bilateral chroni c interstitial fibrosis, areas of acute pneumonitis are difficult to exclude on background of chronic disease.
[2017-01-12 16:49] LABS: Glucose,Whole Blood 155 mg/dL (75-99)
--- NOTE | 2017-01-12 18:33 | PN ---
SUBJECTIVE: 76-year-old white male with hypoxic myocardial infarction, end stage COPD. Status post AICD. Being shut off. The patient continues for the next 24 to 48 hours for possible discharge to rehab center as the patient is unable to take care of himself. Has significant shortness of breath, cough congestion despite updraft treatment and steroids and pulmonary treatment. Please see further orders. MTDD
[2017-01-12 21:12] LABS: Glucose,Whole Blood 169 mg/dL (75-99)
[2017-01-12] MEDS: cefTRIAXone 2,000 MG in SODIUM CHLORIDE 0.9% 100 ML IVPB SCH (21:38)
[2017-01-12] MEDS: CLOPIDOGREL 75 MG TAB PO SCH (21:38)
[2017-01-13] MEDS: IPRATROPIUM-ALBUTEROL 3 ML NEB INHALATION PRN ×2 (02:16→08:20)
[2017-01-13 05:54] LABS: Glucose,Whole Blood 172 mg/dL (75-99)
[2017-01-13] MEDS: INSULIN LISPRO (humaLOG) 300 UNIT/3 ML VIAL SQ SCH ×2 (06:32→12:25)
[2017-01-13] MEDS: AMIODARONE 200 MG TAB PO SCH (08:09)
[2017-01-13] MEDS: ATORVASTATIN 40 MG TAB PO SCH (08:09)
[2017-01-13] MEDS: METOPROLOL SUCCINATE (ER) 25 MG TAB.ER.24H PO SCH (08:09)
[2017-01-13] MEDS: ASPIRIN 325 MG TAB PO SCH (08:09)
[2017-01-13] MEDS: GLUCOSAMINE PO SCH (08:10)
[2017-01-13] MEDS: SOTALOL 80 MG TAB PO SCH (08:11)
[2017-01-13] MEDS: BUDESONIDE 0.5 MG/2 ML NEBU INHALATION SCH (08:20)
[2017-01-13] MEDS ORDERED: predniSONE 20 MG TAB PO SCH (09:00)
--- NOTE | 2017-01-13 10:44 | P.PN ---
Subjective 01/10/17- Patient is being seen examined and evaluated today during rounds. Patient continues on supplemental oxygen 4 L via nasal cannula. The patient uses home oxygen 2 L. Patient continues to have shortness of breath on minimal activity and exertion with very poor reserve with immediate desaturations upon exertion. He continues to have a congested cough however states he has not produced any sputum today. Patient continues to decline having his AICD repositioned. He is afebrile, no overnight events. No further complaints at this time. Cardiology is also following closely. 01/11/17- patient has been seen examined and evaluated today during rounds. He continues to use 4 L supplemental oxygen via nasal cannula. Shortness of breath on minimal activity/exertion still persists. Continues to desaturate rather quickly with exertion. Continues to have a congested cough, no sputum. Cardiology continues to adjust medical regime. He is afebrile, no overnight events. No further complaints. Patient could benefit from a rehab facility upon discharge. 01/12/17- patient seen seen examined and followed up with today on rounds. Upon examination the patient's resting up in bed on or liters of supplemental oxygen. He continues with shortness of breath with minimal activity and exertion. Continues to have a very poor reserve in regards to oxygen saturation. Continues to have a cough with no sputum production. Patient has been educated at length about the need for rehab facility, if he would like to get stronger, he states he will consider this. The patient has a poor prognosis. Patient is also complaining of some leakage from his catheter site, it is unclear why he has the catheter at this point, he states it was given to him while he is on Lasix, patient is no longer on Lasix will defer to primary services in regards to possibly discontinuing the Roblero. 01/13/17- patient has been seen examined and followed up with today on rounds. Upon examination patient's resting up in bed on 4 L of supplemental oxygen he continues to have shortness of breath with minimal activity and exertion. Currently the patient is being worked up to go to rehab facility for discharge today. Patient is agreeing with transfer to rehab. He is afebrile, no overnight events denies any further complaints. Objective - Vital Signs Vital signs: Vital Signs Temp 97.2 F L 01/13/17 08:00 Pulse 68 01/13/17 08:44 Resp 18 01/13/17 08:00 BP 96/65 01/13/17 08:00 Pulse Ox 92 L 01/13/17 08:00 Intake & Output 01/12/17 01/13/17 01/13/17 18:59 06:59 18:59 Intake Total 425 100 300 Output Total 1100 Balance 425 -1000 300 Weight 118 kg Intake: IV 100 cefTRIAXone 2,000 mg In 100 Sodium Chloride 0.9% 100 ml @ 100 mls/hr IVPB Q24H [facility] Rx#:[id number] Oral 425 300 Output: Urine 1100 Other: Voiding Method Indwelling Catheter Urinal Urinal # Voids 3 # Bowel Movements 0 1 ABP, PAP, CO, CI - Last Documented Arterial Blood Pressure 95/58 - Exam GENERAL EXAM: Alert, disheveled, comfortable in no apparent distress. HEAD: Normocephalic. EYES: Normal reaction of pupils, equal size. NOSE: Clear with pink turbinates. THROAT: No erythema or exudates. NECK: No masses, no JVD. CHEST: No chest wall deformity. LUNGS: Lungs noted to be bilaterally coarse with scattered rhonchi and wheezing noted throughout. Bases diminished CVS: S1 and S2 normal with no audible mumurs, regular rhythm. ABDOMEN: No hepatosplenomegaly, normal bowel sounds, no guarding or rigidity. EXTREMITIES: No edema noted, pedal pulses palpable. SKIN: No rashes CENTRAL NERVOUS SYSTEM: No focal deficits, tone is normal in all 4 extremities. - Labs CBC & Chem 7: 01/10/17 06:48 01/10/17 06:42 Labs: Abnormal Lab Results - Last 24 Hours (Table) 01/12/17 01/12/17 01/12/17 Range/Units 11:22 16:46 21:11 POC Glucose (mg/dL) 175 H 155 H 169 H (75-99) mg/dL 01/13/17 Range/Units 05:53 POC Glucose (mg/dL) 172 H (75-99) mg/dL Assessment and Plan Plan: Acute hypoxic respiratory failure Bilateral interstitial pneumonia on top of pulmonary fibrosis Cardiomyopathy congestive heart failure 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, with ejection fraction of 35% Arrhythmia with recurrent shocks from the AICD Severe morbid obesity and likely obstructive sleep apnea Severe sepsis and septic shock related to multifactorial process Uncontrolled diabetes and hyperglycemia Overall plan is to continue continue to gently rehydrate the patient follow up on culture results and report continue IV steroids, which will be decreased, breathing treatment follow up on echocardiogram report reviewed ejection fraction is only 30-35%, patient has multiple comorbidities including pulmonary fibrosis end-stage lung disease and likely obstructive sleep apnea with severe degree of cardiomyopathy acute on chronic systolic heart failure on top of that AICDs off patient has refused Placement of new AICD prognosis is very guarded, will continue to provide supportive care From pulmonary standpoint we are recommending a rehab facility upon discharge due to the patient's weakness, poor reserve and decreased strength. Patient will get his last dose of IV steroids today and will be switched to oral which will begin in the morning. Medications have been reviewed and will be continued as ordered. Continue with pulmonary hygiene, coughing and deep breathing exercises, and supportive care. Supplemental oxygen to maintain oxygen saturations of 92% or better. Continue nebulizer treatments. GI and DVT prophylaxis. We will continue to monitor labs/results and adjust treatment as necessary. Further recommendations pending. I performed an examination of the patient and discussed their management with the nurse practitioner. I have reviewed the nurse practitioner's note and agree with the documented findings and plan of care.
[2017-01-13 11:58] LABS: Glucose,Whole Blood 197 mg/dL (75-99)
[2017-01-13 13:45] VITALS: BP 93/58; PULSE 82; TEMP 97.1
--- NOTE | 2017-01-13 16:45 | PN ---
PROGRESS NOTE Date of Service: SUBJECTIVE: A 76-year-old, white male, with hypoxemia myocardial infarction, end stage COPD, pulmonary hypertension. Patient continues to have shortness of breath with any ambulation. He is going to be set up for rehab at the rehab center for discharge tomorrow. Cardiovascular S1, S2. Lungs transmitted upper airway sounds. GI soft. Hematologic: Negative Homans. Psych: Fair modo and affect. ASSESSMENT: 1. Myocardial infarction. 2. Atherosclerotic heart disease. 3. AICD that has been turned off. \. 4. End stage chronic obstructive pulmonary disease. Continue with diuresis, IV steroids which are being tapered. PT/OT. Home oxygen 4 L. [facility] MMODL / IJN: [id number] /
== END 2017-01-13 13:52 | DRG 871 ==
LOC: EC 21:13 → 6ICU 23:15 → 6SEL 01-08 15:47
PROVIDERS: ADMIT Family Medicine; ATTEND Family Medicine
PROC: 03HC33Z Insertion of Infusion Device into Left Radial Artery, Percutaneous Approach (ICD-10-PCS; principal; 2017-01-05)
DX: A41.9 Sepsis, unspecified organism (principal); I21.4 Non-ST elevation (NSTEMI) myocardial infarction; J96.21 Acute and chronic respiratory failure with hypoxia; R65.21 Severe sepsis with septic shock; I50.43 Acute on chronic combined systolic (congestive) and diastolic (congestive) heart failure; J18.9 Pneumonia, unspecified organism; N17.9 Acute kidney failure, unspecified; E44.0 Moderate protein-calorie malnutrition; J44.0 Chronic obstructive pulmonary disease with (acute) lower respiratory infection; J44.1 Chronic obstructive pulmonary disease with (acute) exacerbation; T82.199A Other mechanical complication of unspecified cardiac device, initial encounter; D69.6 Thrombocytopenia, unspecified; E11.65 Type 2 diabetes mellitus with hyperglycemia; I11.0 Hypertensive heart disease with heart failure; I27.2 Other secondary pulmonary hypertension; E66.01 Morbid (severe) obesity due to excess calories; E78.5 Hyperlipidemia, unspecified; G47.33 Obstructive sleep apnea (adult) (pediatric); I25.10 Atherosclerotic heart disease of native coronary artery without angina pectoris; I25.5 Ischemic cardiomyopathy; I49.9 Cardiac arrhythmia, unspecified; J84.10 Pulmonary fibrosis, unspecified; N18.9 Chronic kidney disease, unspecified; M19.90 Unspecified osteoarthritis, unspecified site; Z87.891 Personal history of nicotine dependence; Z95.5 Presence of coronary angioplasty implant and graft; Z87.01 Personal history of pneumonia (recurrent); I25.2 Old myocardial infarction; Z79.02 Long term (current) use of antithrombotics/antiplatelets; Z79.82 Long term (current) use of aspirin; Z79.899 Other long term (current) drug therapy; Z91.041 Radiographic dye allergy status
CPT/HCPCS: 36415; 71010; 71020; 78582; 80048; 80053; 80061; 82550; 82553; 82803; 82805; 83036; 83735; 83880; 84100; 84484; 85025; 85379; 85610; 85730; 87040; 87070; 87086; 87205; 93306; 94640; 94760; 96361; 96365; 96375; 99291